=== PATIENT | male | born 1965 | race Caucasian/White ===

== ENCOUNTER 2017-01-09 00:50 | Emergency (ER) | payer MEDICARE, MEDICAID ==
[~2017-01-09] VITALS: Ht 172.7 cm; Wt 93.0 kg
[~2017-01-09 00:50] MED LIST: ALBU6.7H INH; AMLO5TAB2; ASPI-621 PO; DOCU-30 PO; FAMO-79 PO; HYDR-3240 PO; LEVO25TA2 PO; LEVO500T33 PO; LISI-167 PO; LISI-170 PO; LISI1TAB5 PO; LISI40TA PO; METF500T27 PO; METF500T4 PO; MORP15TA17 PO; NEBI5TAB2 PO; OMEP40CA3 PO; OXYC5CAP4 PO; OXYC5TAB3 PO; POLY119P4 PO; POLY17PO5 PO; TIOT18CA INH; TOPI100T24 PO
[2017-01-09] MEDS ORDERED: ASPIRIN 81 MG TABLET CHEW PO ONE (01:30)
[2017-01-09] MEDS ORDERED: SODIUM CHLORIDE 0.9% 1,000ML IVBOLUS ONE (01:30)
[2017-01-09 01:45] LABS: HEMOGLOBIN 15.1 g/dL (13.7-18.0)
[2017-01-09 01:57] LABS: BLOOD UREA NITROGEN 18 mg/dL (7-18)
[2017-01-09 02:01] LABS: IS PT STATUS REG ER OR PRE ER? YES
[2017-01-09 03:05] VITALS: BP 136/85
== END 2017-01-09 03:08 | disposition home or self-care (01) ==
LOC: ED 02:41
DX: R07.89 Other chest pain (principal); Z86.711 Personal history of pulmonary embolism; E11.9 Type 2 diabetes mellitus without complications; I10 Essential (primary) hypertension; K21.9 Gastro-esophageal reflux disease without esophagitis; J44.9 Chronic obstructive pulmonary disease, unspecified
CPT/HCPCS: 36415; 71010; 80048; 82040; 84484; 85025; 93005; 96360; 99285; J7030

== ENCOUNTER 2017-01-18 07:38 | Emergency (ER) | payer MEDICARE, MEDICAID ==
[~2017-01-18] VITALS: Ht 172.7 cm; Wt 89.0 kg
[2017-01-18] MEDS ORDERED: SODIUM CHLORIDE 0.9% 1,000 ML IV ONE (07:54)
[2017-01-18] MEDS ORDERED: SODIUM CHLORIDE 0.9% 1,000ML IVBOLUS ONE (08:00)
[2017-01-18] MEDS ORDERED: ALBUTEROL/IPRATROPIUM 2.5MG/0.5MG, 3 ML NPPB ONE (08:00)
[2017-01-18 08:25] LABS: HEMOGLOBIN 15.9 g/dL (13.7-18.0)
[2017-01-18] MEDS ORDERED: ALBUTEROL/IPRATROPIUM 2.5MG/0.5MG, 3 ML ONE (08:27)
[2017-01-18 08:38] LABS: BLOOD UREA NITROGEN 17 mg/dL (7-18)
[2017-01-18 08:42] LABS: IS PT STATUS REG ER OR PRE ER? YES
[2017-01-18] MEDS ORDERED: KETOROLAC 30 MG/1 ML ONE (09:43)
[2017-01-18 09:54] VITALS: BP 153/89
[2017-01-18] MEDS ORDERED: KETOROLAC 30 MG/1 ML IVPush ONE (10:00)
== END 2017-01-18 10:04 | disposition home or self-care (01) ==
LOC: ED 08:59
DX: J44.1 Chronic obstructive pulmonary disease with (acute) exacerbation (principal); J41.1 Mucopurulent chronic bronchitis; I10 Essential (primary) hypertension; E11.9 Type 2 diabetes mellitus without complications
CPT/HCPCS: 36415; 71010; 80048; 82040; 83605; 83880; 84145; 84484; 85025; 93005; 94640; 96374; 99285; J1885; J7030; J7512; J7620

== ENCOUNTER 2017-01-24 08:34 | Emergency (ER) | payer MEDICARE, MEDICAID ==
[~2017-01-24] VITALS: Ht 172.7 cm; Wt 94.2 kg
[2017-01-24 08:36] VITALS: BP 147/91
== END 2017-01-24 10:25 | disposition home or self-care (01) ==
LOC: ED 09:26
DX: S62.514A Nondisplaced fracture of proximal phalanx of right thumb, initial encounter for closed fracture (principal); S63.641A Sprain of metacarpophalangeal joint of right thumb, initial encounter; J44.9 Chronic obstructive pulmonary disease, unspecified; G43.909 Migraine, unspecified, not intractable, without status migrainosus; K21.9 Gastro-esophageal reflux disease without esophagitis; I10 Essential (primary) hypertension; E11.9 Type 2 diabetes mellitus without complications; W06.XXXA Fall from bed, initial encounter; Y93.89 Activity, other specified; Y92.89 Other specified places as the place of occurrence of the external cause; Y99.8 Other external cause status
CPT/HCPCS: 29125

== ENCOUNTER 2017-01-26 00:32 | Emergency (ER) | payer MEDICARE, MEDICAID ==
[~2017-01-26] VITALS: Ht 172.7 cm; Wt 94.5 kg
[2017-01-26 00:34] VITALS: BP 151/84
[2017-01-26] MEDS ORDERED: IBUPROFEN 200 MG TABLET PO ONE (01:30)
== END 2017-01-26 02:04 | disposition home or self-care (01) ==
LOC: ED 01:45
DX: S62.512D Displaced fracture of proximal phalanx of left thumb, subsequent encounter for fracture with routine healing (principal); X58.XXXD Exposure to other specified factors, subsequent encounter; E11.9 Type 2 diabetes mellitus without complications; K21.9 Gastro-esophageal reflux disease without esophagitis; G43.909 Migraine, unspecified, not intractable, without status migrainosus; J44.9 Chronic obstructive pulmonary disease, unspecified; I11.9 Hypertensive heart disease without heart failure; M54.9 Dorsalgia, unspecified; G89.29 Other chronic pain; Z87.891 Personal history of nicotine dependence
CPT/HCPCS: 99281

== ENCOUNTER 2017-01-31 07:36 | Emergency (ER) | payer MEDICARE, MEDICAID ==
[~2017-01-31] VITALS: Ht 172.7 cm; Wt 93.4 kg
[2017-01-31 07:38] VITALS: BP 150/92
== END 2017-01-31 08:49 | disposition home or self-care (01) ==
LOC: ED 08:07
DX: Z46.89 Encounter for fitting and adjustment of other specified devices (principal); E11.9 Type 2 diabetes mellitus without complications; I10 Essential (primary) hypertension; K21.9 Gastro-esophageal reflux disease without esophagitis; J44.9 Chronic obstructive pulmonary disease, unspecified; G43.909 Migraine, unspecified, not intractable, without status migrainosus; G89.29 Other chronic pain; F41.0 Panic disorder [episodic paroxysmal anxiety]; Z87.891 Personal history of nicotine dependence
CPT/HCPCS: 29125

== ENCOUNTER 2017-02-12 21:33 | Emergency (ER) | payer MEDICARE, MEDICAID ==
[~2017-02-12] VITALS: Ht 172.7 cm; Wt 93.4 kg
[2017-02-12] MEDS ORDERED: OMNIPAQUE 350 MG/ML, 100ML BOTTLE ONE (23:00)
[2017-02-12] MEDS ORDERED: MORPHINE SULFATE 4 MG/ML, 1ML IVPush PRN (23:00)
[2017-02-12] MEDS ORDERED: ONDANSETRON 2MG/ML, 2ML IVPush ONE (23:00)
[2017-02-12] MEDS ORDERED: MORPHINE SULFATE 4 MG/ML, 1ML ONE (23:13)
[2017-02-12] MEDS ORDERED: ONDANSETRON 2MG/ML, 2ML ONE (23:13)
[2017-02-12 23:31] LABS: ASPARTATE AMINO TRANSFERASE 24 U/L (15-37); BLOOD UREA NITROGEN 20 mg/dL (7-18)
[2017-02-13 01:24] VITALS: BP 131/77
== END 2017-02-13 01:56 | disposition home or self-care (01) ==
LOC: ED 23:51
DX: A09 Infectious gastroenteritis and colitis, unspecified (principal); I10 Essential (primary) hypertension; E11.9 Type 2 diabetes mellitus without complications; K21.9 Gastro-esophageal reflux disease without esophagitis; J44.9 Chronic obstructive pulmonary disease, unspecified; I11.9 Hypertensive heart disease without heart failure; Z87.01 Personal history of pneumonia (recurrent); Z90.49 Acquired absence of other specified parts of digestive tract; Z87.891 Personal history of nicotine dependence
CPT/HCPCS: 36415; 74177; 80053; 83690; 85025; 96374; 96375; 99285; J2405; Q9967

== ENCOUNTER 2017-02-20 06:36 | Emergency (ER) | payer MEDICARE, MEDICAID ==
[~2017-02-20] VITALS: Ht 172.7 cm; Wt 94.0 kg
[2017-02-20] MEDS ORDERED: SODIUM CHLORIDE FLUSH 10ML SYR IVF ONE (07:30)
[2017-02-20] MEDS ORDERED: KETOROLAC 30 MG/1 ML IVPush ONE (07:30)
[2017-02-20] MEDS ORDERED: METF500T4 PO (07:34)
[2017-02-20] MEDS ORDERED: KETOROLAC 30 MG/1 ML ONE (07:44)
[2017-02-20 07:52] LABS: PATH.CAST-FLAG NOT PRESENT; SPERM-FLAG NOT PRESENT; SRC-FLAG NOT PRESENT; XTAL-FLAG NOT PRESENT; YLC-FLAG NOT PRESENT
[2017-02-20 08:01] LABS: ASPARTATE AMINO TRANSFERASE 26 U/L (15-37); BLOOD UREA NITROGEN 16 mg/dL (7-18)
[2017-02-20 08:30] VITALS: BP 122/85
== END 2017-02-20 09:07 | disposition home or self-care (01) ==
LOC: ED 07:55
DX: R31.29 Other microscopic hematuria (principal); R10.32 Left lower quadrant pain; E11.9 Type 2 diabetes mellitus without complications; J44.9 Chronic obstructive pulmonary disease, unspecified; K21.9 Gastro-esophageal reflux disease without esophagitis; I10 Essential (primary) hypertension
CPT/HCPCS: 36415; 74000; 76770; 80053; 81001; 85025; 87086; 96374; 99285; J1885

== ENCOUNTER 2017-02-21 14:29 | Emergency (ER) | payer MEDICARE, MEDICAID ==
[~2017-02-21] VITALS: Ht 172.7 cm; Wt 94.7 kg
[2017-02-21] MEDS ORDERED: PHENAZOPYRIDINE 200 MG TABLET PO ONE (15:30)
[2017-02-21 16:13] VITALS: BP 138/92
== END 2017-02-21 16:28 | disposition home or self-care (01) ==
LOC: ED 16:22
DX: R33.9 Retention of urine, unspecified (principal); R10.9 Unspecified abdominal pain; G89.29 Other chronic pain; I10 Essential (primary) hypertension; E11.9 Type 2 diabetes mellitus without complications; J44.9 Chronic obstructive pulmonary disease, unspecified; Z87.891 Personal history of nicotine dependence
CPT/HCPCS: 81001; 99284

== ENCOUNTER 2017-03-10 09:45 | Emergency (ER) | payer MEDICARE, MEDICAID ==
[~2017-03-10] VITALS: Ht 172.7 cm; Wt 93.2 kg
[2017-03-10] MEDS ORDERED: MAALOX/HYOSCYAMINE/LIDOCAINE 45 ML BOTTLE ONE (10:21)
[2017-03-10] MEDS ORDERED: MAALOX/HYOSCYAMINE/LIDOCAINE 45 ML BOTTLE PO ONE (10:30)
[2017-03-10] MEDS ORDERED: SODIUM CHLORIDE FLUSH 10ML SYR IVF ONE (10:30)
[2017-03-10 10:50] LABS: BLOOD UREA NITROGEN 18 mg/dL (7-18)
[2017-03-10 10:58] LABS: IS PT STATUS REG ER OR PRE ER? YES
[2017-03-10 12:00] VITALS: BP 117/80
== END 2017-03-10 12:07 | disposition home or self-care (01) ==
LOC: ED 10:41
DX: R07.2 Precordial pain (principal); I11.9 Hypertensive heart disease without heart failure; E11.9 Type 2 diabetes mellitus without complications; K21.9 Gastro-esophageal reflux disease without esophagitis; J44.9 Chronic obstructive pulmonary disease, unspecified; I26.99 Other pulmonary embolism without acute cor pulmonale; Z87.891 Personal history of nicotine dependence
CPT/HCPCS: 36415; 71010; 80048; 82040; 84484; 85025; 93005

== ENCOUNTER 2017-03-22 22:44 | Emergency (ER) | payer MEDICARE, MEDICAID ==
[~2017-03-22] VITALS: Ht 172.7 cm; Wt 96.0 kg
[2017-03-22 22:45] VITALS: BP 139/86
[2017-03-22 23:37] LABS: BLOOD UREA NITROGEN 23 mg/dL (7-18)
[2017-03-22 23:40] LABS: PATH.CAST-FLAG NOT PRESENT; SPERM-FLAG NOT PRESENT; SRC-FLAG NOT PRESENT; XTAL-FLAG NOT PRESENT; YLC-FLAG NOT PRESENT
== END 2017-03-22 23:57 | disposition home or self-care (01) ==
LOC: ED 23:42
DX: R30.0 Dysuria (principal); R31.9 Hematuria, unspecified; J44.9 Chronic obstructive pulmonary disease, unspecified; I11.9 Hypertensive heart disease without heart failure; E11.9 Type 2 diabetes mellitus without complications; K21.9 Gastro-esophageal reflux disease without esophagitis; Z87.891 Personal history of nicotine dependence
CPT/HCPCS: 36415; 76770; 80048; 81001; 82040; 85025; 99285

== ENCOUNTER 2017-03-28 13:15 | Emergency (ER) | payer MEDICARE, MEDICAID ==
[~2017-03-28] VITALS: Ht 172.7 cm; Wt 95.4 kg
[2017-03-28 13:21] VITALS: BP 136/95
== END 2017-03-28 14:44 | disposition home or self-care (01) ==
LOC: ED 14:24
DX: S93.491A Sprain of other ligament of right ankle, initial encounter (principal); M25.561 Pain in right knee; G89.11 Acute pain due to trauma; J44.9 Chronic obstructive pulmonary disease, unspecified; Z86.711 Personal history of pulmonary embolism; K21.9 Gastro-esophageal reflux disease without esophagitis; I11.9 Hypertensive heart disease without heart failure; E11.9 Type 2 diabetes mellitus without complications; W01.0XXA Fall on same level from slipping, tripping and stumbling without subsequent striking against object, initial encounter; Y93.89 Activity, other specified; Y92.410 Unspecified street and highway as the place of occurrence of the external cause; Y99.9 Unspecified external cause status
CPT/HCPCS: 29505; 99284

== ENCOUNTER 2017-05-04 18:37 | Emergency (ER) | payer MEDICARE, MEDICAID ==
[~2017-05-04] VITALS: Ht 172.7 cm; Wt 95.0 kg
[2017-05-04] MEDS ORDERED: SODIUM CHLORIDE FLUSH 10ML SYR IVF ONE (19:00)
[2017-05-04] MEDS ORDERED: KETOROLAC 30 MG/1 ML IVPush ONE (19:00)
[2017-05-04] MEDS ORDERED: SODIUM CHLORIDE 0.9% 1,000ML IV ONE (19:00)
[2017-05-04] MEDS ORDERED: ONDANSETRON 2MG/ML, 2ML IVPush ONE (19:00)
[2017-05-04 19:29] LABS: ASPARTATE AMINO TRANSFERASE 31 U/L (15-37); BLOOD UREA NITROGEN 24 mg/dL (7-18)
[2017-05-04] MEDS ORDERED: METF500T4 PO (19:32)
[2017-05-04] MEDS ORDERED: ONDANSETRON 2MG/ML, 2ML ONE (19:32)
[2017-05-04] MEDS ORDERED: KETOROLAC 30 MG/1 ML ONE (19:32)
[2017-05-04 21:21] VITALS: BP 127/75
== END 2017-05-04 21:24 | disposition home or self-care (01) ==
LOC: ED 20:45
DX: R30.0 Dysuria (principal); R31.9 Hematuria, unspecified; J44.9 Chronic obstructive pulmonary disease, unspecified; K21.9 Gastro-esophageal reflux disease without esophagitis; I11.9 Hypertensive heart disease without heart failure; Z86.711 Personal history of pulmonary embolism; E11.9 Type 2 diabetes mellitus without complications; Z87.891 Personal history of nicotine dependence
CPT/HCPCS: 36415; 74000; 80053; 81003; 83690; 85025; 96374; 96375; 99285; J1885; J2405; J7030

== ENCOUNTER 2017-05-09 11:31 | Emergency (ER) | payer MEDICARE, MEDICAID ==
[~2017-05-09] VITALS: Ht 172.7 cm; Wt 96.3 kg
[2017-05-09] MEDS ORDERED: SODIUM CHLORIDE FLUSH 10ML SYR IVF ONE (12:00)
[2017-05-09] MEDS ORDERED: KETOROLAC 30 MG/1 ML IVPush ONE (12:00)
[2017-05-09] MEDS ORDERED: ONDANSETRON 2MG/ML, 2ML IVPush ONE (12:00)
[2017-05-09] MEDS ORDERED: KETOROLAC 30 MG/1 ML ONE (12:11)
[2017-05-09] MEDS ORDERED: ONDANSETRON 2MG/ML, 2ML ONE (12:11)
[2017-05-09 12:28] LABS: BLOOD UREA NITROGEN 17 mg/dL (7-18)
[2017-05-09 13:19] VITALS: BP 153/90
== END 2017-05-09 14:17 | disposition home or self-care (01) ==
LOC: ED 11:47
DX: R10.9 Unspecified abdominal pain (principal); R30.0 Dysuria; J44.9 Chronic obstructive pulmonary disease, unspecified; I10 Essential (primary) hypertension; E11.9 Type 2 diabetes mellitus without complications; F17.210 Nicotine dependence, cigarettes, uncomplicated
CPT/HCPCS: 36415; 80048; 81001; 82040; 85025; 96374; 96375; 99284; J1885; J2405

== ENCOUNTER 2017-05-16 21:31 | Observation (INO) | payer MEDICARE, MEDICAID ==
[~2017-05-16] VITALS: Ht 172.7 cm; Wt 95.4 kg
[2017-05-16 22:24] LABS: BLOOD UREA NITROGEN 16 mg/dL (7-18)
[2017-05-17 00:18] LABS: DAU SCREEN DISCLAIMER
[2017-05-17] MEDS ORDERED: POLYETHYLENE GLYCOL 17 GM PACKET PO PRN (01:00)
[2017-05-17] MEDS ORDERED: DOCUSATE 100 MG CAPSULE PO PRN (01:00)
[2017-05-17] MEDS ORDERED: TEMPLATE NON-FORMULARY MED. (Albuterol Sulfate (Proventil Hfa) 2 PUFF(S)) INH PRN (01:00)
[2017-05-17] MEDS ORDERED: LABETALOL 5MG/ML 40ML VIAL IVPush PRN (01:00)
[2017-05-17] MEDS: HEPARIN 5,000 UNITS/ML, 1ML SQ SCH ×3 (02:49→22:15)
[2017-05-17] MEDS: SODIUM CHLORIDE 0.9% 1,000 ML IV SCH ×3 (02:49→22:16)
[2017-05-17 02:55] VITALS: BP 118/77
[2017-05-17] MEDS ORDERED: ALUMINUM/MAG/SIMETHICONE 30 ML UDC PO PRN (05:30)
[2017-05-17 06:30] VITALS: BP 123/83
[2017-05-17] MEDS: IPRATROPIUM 0.5 MG/2.5 ML INHA HHN SCH ×3 (09:00→21:00)
[2017-05-17] MEDS: OMEPRAZOLE 20 MG CAPSULE.DR PO SCH ×2 (10:13→22:15)
[2017-05-17 12:03] VITALS: BP 126/82
[2017-05-17] MEDS: KETOROLAC 30 MG/1 ML IVPush PRN (18:16)
[2017-05-17 18:27] VITALS: BP 127/82
[2017-05-18 02:42] VITALS: BP 128/85
[2017-05-18] MEDS: IPRATROPIUM 0.5 MG/2.5 ML INHA HHN SCH ×4 (03:00→21:00)
[2017-05-18 05:15] LABS: BLOOD UREA NITROGEN 15 mg/dL (7-18)
[2017-05-18] MEDS: HEPARIN 5,000 UNITS/ML, 1ML SQ SCH ×3 (05:15→22:10)
[2017-05-18 07:00] VITALS: BP 135/88
[2017-05-18] MEDS: SODIUM CHLORIDE 0.9% 1,000 ML IV SCH (08:30)
[2017-05-18] MEDS: OMEPRAZOLE 20 MG CAPSULE.DR PO SCH ×2 (08:36→22:10)
[2017-05-18] MEDS: KETOROLAC 30 MG/1 ML IVPush PRN (08:53)
[2017-05-18] MEDS: INSULIN ASPART 100 UNITS/ML, PEN SQ-INSULIN SCH ×3 (11:00→21:00)
[2017-05-18 12:53] VITALS: BP 132/81
[2017-05-18 20:26] VITALS: BP 129/84
[2017-05-18] MEDS: metFORMIN 500 MG TABLET PO SCH (22:10)
[2017-05-19 02:05] VITALS: BP 125/87
[2017-05-19] MEDS: IPRATROPIUM 0.5 MG/2.5 ML INHA HHN SCH ×4 (03:00→21:00)
[2017-05-19] MEDS: HEPARIN 5,000 UNITS/ML, 1ML SQ SCH ×3 (05:51→21:19)
[2017-05-19] MEDS: INSULIN ASPART 100 UNITS/ML, PEN SQ-INSULIN SCH ×4 (07:00→21:00)
[2017-05-19 08:06] VITALS: BP 128/85
[2017-05-19] MEDS: TOPIRAMATE 100 MG TABLET PO SCH (08:10)
[2017-05-19] MEDS: metFORMIN 500 MG TABLET PO SCH ×2 (08:10→21:15)
[2017-05-19] MEDS: OMEPRAZOLE 20 MG CAPSULE.DR PO SCH ×2 (08:10→21:15)
[2017-05-19 08:55] LABS: IS PT STATUS REG ER OR PRE ER? NO
[2017-05-19 14:30] VITALS: BP 124/84
[2017-05-19 18:38] VITALS: BP 132/88
[2017-05-20 01:50] VITALS: BP 104/65
[2017-05-20] MEDS: IPRATROPIUM 0.5 MG/2.5 ML INHA HHN SCH ×3 (03:00→08:35)
[2017-05-20] MEDS: HEPARIN 5,000 UNITS/ML, 1ML SQ SCH ×3 (06:07→22:00)
[2017-05-20] MEDS: INSULIN ASPART 100 UNITS/ML, PEN SQ-INSULIN SCH ×4 (07:00→20:04)
[2017-05-20] MEDS: metFORMIN 500 MG TABLET PO SCH ×2 (08:29→20:03)
[2017-05-20] MEDS: TOPIRAMATE 100 MG TABLET PO SCH (08:29)
[2017-05-20] MEDS: OMEPRAZOLE 20 MG CAPSULE.DR PO SCH ×2 (08:29→20:03)
[2017-05-20] MEDS: IPRATROPIUM 0.5 MG/2.5 ML INHA NPPB SCH ×2 (15:00→21:00)
[2017-05-20 18:43] VITALS: BP 119/81
[2017-05-21 00:12] VITALS: BP 113/72
[2017-05-21] MEDS: ACETAMINOPHEN 325 MG TABLET PO PRN (01:38)
[2017-05-21] MEDS: IPRATROPIUM 0.5 MG/2.5 ML INHA NPPB SCH ×4 (02:32→15:11)
[2017-05-21] MEDS: HEPARIN 5,000 UNITS/ML, 1ML SQ SCH ×3 (06:00→21:19)
[2017-05-21] MEDS: INSULIN ASPART 100 UNITS/ML, PEN SQ-INSULIN SCH ×4 (07:00→21:00)
[2017-05-21 08:22] VITALS: BP 124/82
[2017-05-21] MEDS: OMEPRAZOLE 20 MG CAPSULE.DR PO SCH ×2 (09:06→21:19)
[2017-05-21] MEDS: TOPIRAMATE 100 MG TABLET PO SCH (09:06)
[2017-05-21] MEDS: metFORMIN 500 MG TABLET PO SCH ×2 (09:06→21:19)
[2017-05-21 14:30] VITALS: BP 107/71
[2017-05-21 19:03] VITALS: BP 129/88
[2017-05-21 19:50] VITALS: BP 126/88
[2017-05-21] MEDS ORDERED: ALUMINUM/MAG/SIMETHICONE 30 ML UDC PO PRN (20:45)
[2017-05-21] MEDS: MORPHINE SULFATE 4 MG/ML, 1ML IVPush PRN (21:18)
[2017-05-22 01:10] VITALS: BP 121/82
[2017-05-22] MEDS: MORPHINE SULFATE 4 MG/ML, 1ML IVPush PRN ×5 (01:42→21:13)
[2017-05-22] MEDS: IPRATROPIUM 0.5 MG/2.5 ML INHA NPPB SCH ×3 (02:47→15:00)
[2017-05-22] MEDS: HEPARIN 5,000 UNITS/ML, 1ML SQ SCH ×2 (05:45→16:48)
[2017-05-22] MEDS ORDERED: ONDANSETRON 2MG/ML, 2ML IVPush PRN (06:00)
[2017-05-22] MEDS: INSULIN ASPART 100 UNITS/ML, PEN SQ-INSULIN SCH ×4 (07:00→21:00)
[2017-05-22] MEDS: metFORMIN 500 MG TABLET PO SCH ×2 (08:20→21:00)
[2017-05-22] MEDS: TOPIRAMATE 100 MG TABLET PO SCH (08:20)
[2017-05-22] MEDS: OMEPRAZOLE 20 MG CAPSULE.DR PO SCH ×2 (08:20→21:13)
[2017-05-22 09:02] VITALS: BP 125/85
[2017-05-22 09:40] LABS: IS PT STATUS REG ER OR PRE ER? NO
[2017-05-22 14:30] VITALS: BP 123/85
[2017-05-22] MEDS: ACETAMINOPHEN 325 MG TABLET PO PRN (16:47)
[2017-05-22 20:08] VITALS: BP 124/85
[2017-05-23] MEDS: HEPARIN 5,000 UNITS/ML, 1ML SQ SCH ×3 (01:00→16:05)
[2017-05-23] MEDS: MORPHINE SULFATE 4 MG/ML, 1ML IVPush PRN ×2 (05:02→15:16)
[2017-05-23 05:05] VITALS: BP 123/85
[2017-05-23] MEDS ORDERED: IPRATROPIUM 0.5 MG/2.5 ML INHA ONE (06:30)
[2017-05-23] MEDS: INSULIN ASPART 100 UNITS/ML, PEN SQ-INSULIN SCH ×3 (07:00→16:13)
[2017-05-23 07:03] VITALS: BP 116/78
[2017-05-23] MEDS: metFORMIN 500 MG TABLET PO SCH (07:31)
[2017-05-23] MEDS: TOPIRAMATE 100 MG TABLET PO SCH (07:45)
[2017-05-23] MEDS: OMEPRAZOLE 20 MG CAPSULE.DR PO SCH (07:45)
[2017-05-23] MEDS ORDERED: REGADENOSON 0.4 MG/5 ML SYRINGE ONE (08:16)
[2017-05-23] MEDS ORDERED: IPRATROPIUM 0.5 MG/2.5 ML INHA NPPB SCH (09:00)
[2017-05-23 12:01] VITALS: BP 127/83
== END 2017-05-23 17:54 ==
LOC: ED 21:48 → EDIP 05-17 00:18 → INTOOBSV 05-17 00:18 → 4WST 05-17 00:44
PROVIDERS: ADMIT Hospitalist; ATTEND Internal Medicine
DX: T46.4X2A Poisoning by angiotensin-converting-enzyme inhibitors, intentional self-harm, initial encounter (principal); E11.9 Type 2 diabetes mellitus without complications; F10.21 Alcohol dependence, in remission; J44.9 Chronic obstructive pulmonary disease, unspecified; G47.33 Obstructive sleep apnea (adult) (pediatric); I10 Essential (primary) hypertension; K21.9 Gastro-esophageal reflux disease without esophagitis; Z86.711 Personal history of pulmonary embolism; Z87.891 Personal history of nicotine dependence; Y92.89 Other specified places as the place of occurrence of the external cause
CPT/HCPCS: 36415; 78452; 80048; 80307; 82040; 82962; 83690; 83735; 84484; 85025; 87324; 93005; 93017; 94640; 96361; 96372; 96374; 96375; 96376; 99285; A9502; C9898; G0378; J1644; J1815; J1885; J2405; J2785; J7030; J7644

== ENCOUNTER 2017-06-04 01:41 | Emergency (ER) | payer MEDICARE, MEDICAID ==
[~2017-06-04] VITALS: Ht 170.2 cm; Wt 95.3 kg
[2017-06-04] MEDS ORDERED: LORazepam 0.5MG TABLET PO ONE (03:30)
[2017-06-04] MEDS ORDERED: LORazepam 0.5MG TABLET ONE (03:31)
[2017-06-04 03:38] LABS: HEMATOCRIT 49.2 % (39.2-51.8); HEMOGLOBIN 15.8 g/dL (13.7-18.0); WHITE BLOOD COUNT 8.5 x10^3/uL (3.4-10)
[2017-06-04 03:48] LABS: BLOOD UREA NITROGEN 22 mg/dL (7-18)
[2017-06-04 03:55] LABS: IS PT STATUS REG ER OR PRE ER? YES
[2017-06-04 04:24] VITALS: BP 130/83
== END 2017-06-04 04:25 | disposition home or self-care (01) ==
LOC: ED 03:25
DX: R07.89 Other chest pain (principal); R06.00 Dyspnea, unspecified; E11.9 Type 2 diabetes mellitus without complications; I10 Essential (primary) hypertension; J44.9 Chronic obstructive pulmonary disease, unspecified; K21.9 Gastro-esophageal reflux disease without esophagitis; G43.909 Migraine, unspecified, not intractable, without status migrainosus; Z79.84 Long term (current) use of oral hypoglycemic drugs; Z87.891 Personal history of nicotine dependence
CPT/HCPCS: 36415; 71020; 80048; 84484; 85025; 93005; 99285

== ENCOUNTER 2017-06-14 19:44 | Emergency (ER) | payer MEDICARE, MEDICAID ==
[~2017-06-14] VITALS: Ht 172.7 cm; Wt 95.7 kg
[2017-06-14] MEDS ORDERED: ASPIRIN 81 MG TABLET CHEW ONE (20:17)
[2017-06-14] MEDS ORDERED: SODIUM CHLORIDE FLUSH 10ML SYR IVF ONE (20:30)
[2017-06-14] MEDS ORDERED: ASPIRIN 81 MG TABLET CHEW PO ONE (20:30)
[2017-06-14 20:41] LABS: HEMATOCRIT 46.8 % (39.2-51.8); HEMOGLOBIN 15.3 g/dL (13.7-18.0); WHITE BLOOD COUNT 7.8 x10^3/uL (3.4-10)
[2017-06-14 20:50] LABS: ASPARTATE AMINO TRANSFERASE 28 U/L (15-37); BLOOD UREA NITROGEN 17 mg/dL (7-18)
[2017-06-14 20:55] LABS: IS PT STATUS REG ER OR PRE ER? YES
[2017-06-14] MEDS ORDERED: OMNIPAQUE 350 MG/ML, 100ML BOTTLE ONE (21:43)
[2017-06-14] MEDS ORDERED: ONDANSETRON 2MG/ML, 2ML IVPush ONE (22:30)
[2017-06-14] MEDS ORDERED: MORPHINE SULFATE 4 MG/ML, 1ML IVPush PRN (22:30)
[2017-06-14] MEDS ORDERED: MORPHINE SULFATE 4 MG/ML, 1ML ONE (22:58)
[2017-06-14] MEDS ORDERED: ONDANSETRON 2MG/ML, 2ML ONE (22:59)
[2017-06-14] MEDS ORDERED: NITROGLYCERIN SINGLE TAB 0.4 MG SL ONE (22:59)
[2017-06-14] MEDS: NITROGLYCERIN SINGLE TAB 0.4 MG SL PRN ×3 (23:01→23:13)
[2017-06-14 23:10] LABS: IS PT STATUS REG ER OR PRE ER? YES
[2017-06-14 23:38] VITALS: BP 121/78
== END 2017-06-14 23:45 | disposition home or self-care (01) ==
LOC: ED 20:19
DX: R10.13 Epigastric pain (principal); R07.89 Other chest pain; J44.9 Chronic obstructive pulmonary disease, unspecified; E11.9 Type 2 diabetes mellitus without complications; I10 Essential (primary) hypertension; K21.9 Gastro-esophageal reflux disease without esophagitis; Z86.711 Personal history of pulmonary embolism; Z87.891 Personal history of nicotine dependence
CPT/HCPCS: 36415; 71010; 71275; 80053; 83690; 84484; 85025; 85379; 93005; 96374; 96375; 99285; J2405; Q9967

== ENCOUNTER 2017-06-20 10:25 | Emergency (ER) | payer MEDICARE, MEDICAID ==
[~2017-06-20] VITALS: Ht 172.7 cm; Wt 95.5 kg
[~2017-06-20 10:25] MED LIST changes: +DOCU-131 PO; -DOCU-30 PO; -LEVO500T33 PO; +LEVO500T47 PO; +OXYC5CAP2 PO; -OXYC5CAP4 PO
[2017-06-20] MEDS ORDERED: SODIUM CHLORIDE 0.9% 1,000ML IV ONE (11:00)
[2017-06-20] MEDS ORDERED: SODIUM CHLORIDE FLUSH 10ML SYR IVF ONE (11:00)
[2017-06-20] MEDS ORDERED: MORPHINE SULFATE 4 MG/ML, 1ML IVPush PRN (11:00)
[2017-06-20] MEDS ORDERED: ONDANSETRON 2MG/ML, 2ML IVPush ONE (11:00)
[2017-06-20] MEDS ORDERED: ONDANSETRON 2MG/ML, 2ML ONE (11:15)
[2017-06-20] MEDS ORDERED: MORPHINE SULFATE 4 MG/ML, 1ML ONE (11:15)
[2017-06-20 11:23] LABS: HEMATOCRIT 47.7 % (39.2-51.8); HEMOGLOBIN 15.7 g/dL (13.7-18.0); WHITE BLOOD COUNT 5.6 x10^3/uL (3.4-10)
[2017-06-20 11:34] LABS: ASPARTATE AMINO TRANSFERASE 30 U/L (15-37); BLOOD UREA NITROGEN 17 mg/dL (7-18)
[2017-06-20] MEDS: MAGNESIUM CITRATE 300ML ORAL SOL PO ONE ×2 (12:00→12:06)
[2017-06-20] MEDS ORDERED: MAGNESIUM CITRATE 300ML ORAL SOL ONE (12:05)
[2017-06-20 12:46] VITALS: BP 141/92
== END 2017-06-20 12:51 | disposition home or self-care (01) ==
LOC: ED 10:39
DX: K59.00 Constipation, unspecified (principal); I10 Essential (primary) hypertension; J44.9 Chronic obstructive pulmonary disease, unspecified; E11.9 Type 2 diabetes mellitus without complications; K21.9 Gastro-esophageal reflux disease without esophagitis; Z90.49 Acquired absence of other specified parts of digestive tract
CPT/HCPCS: 36415; 74176; 80053; 81003; 83605; 83690; 85025; 87040; 96374; 96375; 99285; J2405; J7030

== ENCOUNTER 2017-06-30 13:36 | Inpatient (IN) | payer MEDICARE, MEDICAID ==
[~2017-06-30] VITALS: Ht 172.7 cm; Wt 104.0 kg
[2017-06-30] MEDS ORDERED: SODIUM CHLORIDE 0.9% 1,000 ML IV ONE (15:05)
[2017-06-30] MEDS ORDERED: SODIUM CHLORIDE 0.9% 1,000ML IVBOLUS ONE (15:30)
[2017-06-30] MEDS ORDERED: MORPHINE SULFATE 4 MG/ML, 1ML IVPush PRN (15:30)
[2017-06-30] MEDS ORDERED: FAMOTIDINE 20 MG/2 ML IVP ONE (15:30)
[2017-06-30] MEDS ORDERED: MAALOX/HYOSCYAMINE/LIDOCAINE 45 ML BTL PO ONE (15:30)
[2017-06-30] MEDS ORDERED: ONDANSETRON 2MG/ML, 2ML IVPush ONE (15:30)
[2017-06-30] MEDS ORDERED: MORPHINE SULFATE 4 MG/ML, 1ML ONE (15:31)
[2017-06-30] MEDS ORDERED: MAALOX/HYOSCYAMINE/LIDOCAINE 45 ML BTL ONE (15:31)
[2017-06-30 15:32] LABS: HEMATOCRIT 48.2 % (39.2-51.8); WHITE BLOOD COUNT 8.3 x10^3/uL (3.4-10)
[2017-06-30] MEDS ORDERED: ONDANSETRON 2MG/ML, 2ML ONE (15:32)
[2017-06-30] MEDS ORDERED: FAMOTIDINE 20 MG/2 ML ONE (15:32)
[2017-06-30 15:42] LABS: PATH.CAST-FLAG NOT PRESENT; SPERM-FLAG NOT PRESENT; SRC-FLAG NOT PRESENT; XTAL-FLAG NOT PRESENT; YLC-FLAG NOT PRESENT
[2017-06-30 15:43] LABS: BLOOD UREA NITROGEN 14 mg/dL (7-18)
[2017-06-30 15:47] LABS: ASPARTATE AMINO TRANSFERASE 41 U/L (15-37)
[2017-06-30] MEDS ORDERED: TEMPLATE NON-FORMULARY MED. (Albuterol Sulfate (Proventil Hfa) 2 PUFF(S)) INH PRN (18:30)
[2017-06-30] MEDS ORDERED: morphine SULFATE 10 MG/ML, 1ML IVPush PRN (19:00)
[2017-06-30] MEDS ORDERED: ONDANSETRON 2MG/ML, 2ML IVPush PRN (19:00)
[2017-06-30] MEDS ORDERED: POLYETHYLENE GLYCOL 17 GM PACKET PO PRN (19:00)
[2017-06-30] MEDS ORDERED: DOCUSATE 100 MG CAPSULE PO PRN (19:00)
[2017-06-30] MEDS ORDERED: ACETAMINOPHEN 325 MG TABLET PO PRN (19:00)
[2017-06-30] MEDS ORDERED: ENOXAPARIN 40 MG/0.4 ML ONE (19:20)
[2017-06-30] MEDS: ENOXAPARIN 40 MG/0.4 ML SQ SCH (19:21)
[2017-06-30 20:00] VITALS: BP 138/91
[2017-06-30] MEDS: INSULIN ASPART 100 UNITS/ML, PEN SQ-INSULIN SCH (21:00)
[2017-06-30] MEDS: OXYcodone IR 5MG TABLET PO PRN (21:15)
[2017-06-30] MEDS: NS + 20MEQ KCL 1,000 ML IV SCH (21:15)
[2017-07-01 03:35] VITALS: BP 130/83
[2017-07-01] MEDS: OXYcodone IR 5MG TABLET PO PRN ×3 (03:40→20:17)
[2017-07-01] MEDS: NS + 20MEQ KCL 1,000 ML IV SCH (05:34)
[2017-07-01] MEDS: INSULIN ASPART 100 UNITS/ML, PEN SQ-INSULIN SCH ×4 (07:00→20:51)
[2017-07-01 08:08] VITALS: BP 140/89
[2017-07-01] MEDS: TOPIRAMATE 25 MG TABLET PO SCH (08:39)
[2017-07-01] MEDS: SENNA/DOCUSATE TABLET PO SCH (08:39)
[2017-07-01] MEDS: TEMPLATE NON-FORMULARY MED. (Tiotropium Bromide** (Spiriva**) 18 MCG) INH SCH (08:40)
[2017-07-01 08:45] LABS: BLOOD UREA NITROGEN 14 mg/dL (7-18)
[2017-07-01 08:48] LABS: ASPARTATE AMINO TRANSFERASE 37 U/L (15-37)
[2017-07-01 12:55] VITALS: BP 117/74
[2017-07-01] MEDS: ENOXAPARIN 40 MG/0.4 ML SQ SCH (18:23)
[2017-07-01 19:07] VITALS: BP 95/67
[2017-07-02 01:58] VITALS: BP 99/66
[2017-07-02 05:30] LABS: BLOOD UREA NITROGEN 11 mg/dL (7-18)
[2017-07-02] MEDS: INSULIN ASPART 100 UNITS/ML, PEN SQ-INSULIN SCH ×4 (07:00→21:00)
[2017-07-02] MEDS: SENNA/DOCUSATE TABLET PO SCH (07:44)
[2017-07-02] MEDS: TOPIRAMATE 25 MG TABLET PO SCH (07:44)
[2017-07-02] MEDS: TEMPLATE NON-FORMULARY MED. (Tiotropium Bromide** (Spiriva**) 18 MCG) INH SCH (08:03)
[2017-07-02 08:39] VITALS: BP 103/62
[2017-07-02] MEDS: SODIUM CHLORIDE 0.9% 1,000 ML IV SCH ×2 (12:22→20:49)
[2017-07-02] MEDS ORDERED: SENNA/DOCUSATE TABLET PO PRN (12:30)
[2017-07-02 14:44] VITALS: BP 127/83
[2017-07-02] MEDS: OXYcodone IR 5MG TABLET PO PRN (18:33)
[2017-07-02] MEDS: ENOXAPARIN 40 MG/0.4 ML SQ SCH (18:33)
[2017-07-02 19:19] VITALS: BP 122/79
[2017-07-03 01:55] VITALS: BP 122/79
[2017-07-03] MEDS: SODIUM CHLORIDE 0.9% 1,000 ML IV SCH ×3 (04:26→18:15)
[2017-07-03] MEDS: INSULIN ASPART 100 UNITS/ML, PEN SQ-INSULIN SCH ×4 (06:38→21:27)
[2017-07-03 07:06] VITALS: BP 125/84
[2017-07-03] MEDS: TEMPLATE NON-FORMULARY MED. (Tiotropium Bromide** (Spiriva**) 18 MCG) INH SCH (09:00)
[2017-07-03] MEDS: TOPIRAMATE 25 MG TABLET PO SCH (09:09)
[2017-07-03] MEDS ORDERED: PHENAZOPYRIDINE 100 MG TABLET PO PRN (11:00)
[2017-07-03 13:52] VITALS: BP 112/76
[2017-07-03] MEDS: IPRATROPIUM 0.5 MG/2.5 ML INHA HHN SCH ×2 (13:55→20:56)
[2017-07-03] MEDS: ENOXAPARIN 40 MG/0.4 ML SQ SCH (18:15)
[2017-07-03 20:32] VITALS: BP 116/70
[2017-07-03] MEDS: OXYcodone IR 5MG TABLET PO PRN (20:40)
[2017-07-04 01:17] VITALS: BP 103/67
[2017-07-04] MEDS ORDERED: IPRATROPIUM 0.5 MG/2.5 ML INHA HHN SCH (03:00)
[2017-07-04] MEDS: SODIUM CHLORIDE 0.9% 1,000 ML IV SCH ×2 (03:24→12:30)
[2017-07-04] MEDS: INSULIN ASPART 100 UNITS/ML, PEN SQ-INSULIN SCH (07:43)
[2017-07-04 08:04] VITALS: BP 109/71
[2017-07-04] MEDS ORDERED: IPRATROPIUM 0.5 MG/2.5 ML INHA ONE (10:04)
[2017-07-04] MEDS: TEMPLATE NON-FORMULARY MED. (Tiotropium Bromide** (Spiriva**) 18 MCG) INH SCH (10:41)
[2017-07-04 11:17] LABS: HEMATOCRIT 47.6 % (39.2-51.8); HEMOGLOBIN 15.9 g/dL (13.7-18.0); WHITE BLOOD COUNT 5.5 x10^3/uL (3.4-10)
[2017-07-04 11:18] LABS: ASPARTATE AMINO TRANSFERASE 38 U/L (15-37); BLOOD UREA NITROGEN 8 mg/dL (7-18)
[2017-07-04] MEDS: TOPIRAMATE 25 MG TABLET PO SCH (12:07)
[2017-07-04] MEDS ORDERED: PHEN-582 PO (15:02)
[2017-07-04 16:00] VITALS: BP 115/81
[2017-07-04] MEDS ORDERED: IPRATROPIUM 0.5 MG/2.5 ML INHA NPPB SCH (21:00)
== END 2017-07-04 17:59 | disposition home or self-care (01) | DRG 439 ==
LOC: ED 14:19 → EDIP 18:07 → 4NOR 19:44
PROVIDERS: ADMIT Family Medicine; ATTEND Family Medicine
DX: K85.20 Alcohol induced acute pancreatitis without necrosis or infection (principal); E44.0 Moderate protein-calorie malnutrition; K74.60 Unspecified cirrhosis of liver; I10 Essential (primary) hypertension; K70.9 Alcoholic liver disease, unspecified; K86.0 Alcohol-induced chronic pancreatitis; E11.9 Type 2 diabetes mellitus without complications; F10.21 Alcohol dependence, in remission; F41.1 Generalized anxiety disorder; G47.33 Obstructive sleep apnea (adult) (pediatric); G89.4 Chronic pain syndrome; M54.9 Dorsalgia, unspecified; J44.9 Chronic obstructive pulmonary disease, unspecified; K21.9 Gastro-esophageal reflux disease without esophagitis; G43.909 Migraine, unspecified, not intractable, without status migrainosus; M54.12 Radiculopathy, cervical region; Z86.711 Personal history of pulmonary embolism; Z90.49 Acquired absence of other specified parts of digestive tract; Z79.84 Long term (current) use of oral hypoglycemic drugs; Z79.899 Other long term (current) drug therapy; Z88.8 Allergy status to other drugs, medicaments and biological substances; Z91.030 Bee allergy status
CPT/HCPCS: 36415; 71010; 76700; 80048; 80053; 81001; 81003; 82962; 83605; 83690; 85025; 85610; 87491; 87591; 93005; 94640; 96361; 96374; 96375; J1650; J2405; J3480; J7644; J7030; S0028

== ENCOUNTER 2017-07-22 13:36 | Inpatient (IN) | payer MEDICARE, MEDICAID ==
[~2017-07-22] VITALS: Ht 172.7 cm; Wt 96.5 kg
[~2017-07-22 13:36] MED LIST changes: +PHEN-582 PO
[2017-07-22] MEDS ORDERED: SODIUM CHLORIDE 0.9% 1,000ML IVBOLUS ONE (14:00)
[2017-07-22] MEDS ORDERED: SODIUM CHLORIDE FLUSH 10ML SYR IVF ONE ×2 (14:00→18:30)
[2017-07-22] MEDS ORDERED: ONDANSETRON 2MG/ML, 2ML IVPush ONE (14:00)
[2017-07-22 14:42] LABS: HEMATOCRIT 48.9 % (39.2-51.8); HEMOGLOBIN 16.3 g/dL (13.7-18.0); WHITE BLOOD COUNT 7.3 x10^3/uL (3.4-10)
[2017-07-22 14:45] LABS: BLOOD UREA NITROGEN 20 mg/dL (7-18)
[2017-07-22 14:50] LABS: ASPARTATE AMINO TRANSFERASE 40 U/L (15-37)
[2017-07-22] MEDS ORDERED: ENALAPRILAT 1.25 MG/ML, 2ML IVPush PRN (18:00)
[2017-07-22] MEDS ORDERED: LABETALOL 5MG/ML, 20ML IVPush PRN (18:00)
[2017-07-22] MEDS ORDERED: ONDANSETRON 2MG/ML, 2ML ONE (18:16)
[2017-07-22] MEDS ORDERED: HYDROmorphone 2 MG/ML, 1ML ONE (18:17)
[2017-07-22] MEDS: HYDROmorphone 2 MG/ML, 1ML IVPush PRN ×2 (18:23→23:22)
[2017-07-22] MEDS ORDERED: DEXTROSE 4 GM TAB.CHEW PO PRN (18:30)
[2017-07-22] MEDS ORDERED: GLUCAGON 1 MG IM PRN (18:30)
[2017-07-22] MEDS ORDERED: hydrALAzine 20 MG/ML, 1ML IV PRN (18:30)
[2017-07-22] MEDS ORDERED: DEXTROSE 50%, 50ML SYRINGE IVPush PRN (18:30)
[2017-07-22] MEDS ORDERED: ONDANSETRON 2MG/ML, 2ML IVPush PRN (18:30)
[2017-07-22] MEDS ORDERED: ALBUTEROL SULFATE 2.5 MG/3 ML NPPB PRN (18:30)
[2017-07-22 19:59] VITALS: BP 142/92
[2017-07-22 20:00] VITALS: BP 142/92
[2017-07-22] MEDS: LACTATED RINGERS 1,000 ML IV SCH (20:03)
[2017-07-22] MEDS: SODIUM CHLORIDE FLUSH 10ML SYR IVF SCH (20:03)
[2017-07-22] MEDS: INSULIN ASPART 100 UNITS/ML, PEN SQ-INSULIN SCH (21:00)
[2017-07-22] MEDS: ENOXAPARIN 40 MG/0.4 ML SQ SCH (21:14)
[2017-07-23] VITALS (7 sets, daily range): BP systolic 101–136; BP diastolic 65–91
[2017-07-23] MEDS: LACTATED RINGERS 1,000 ML IV SCH ×3 (00:53→11:07)
[2017-07-23 05:37] LABS: HEMATOCRIT 46.1 % (39.2-51.8); HEMOGLOBIN 15.3 g/dL (13.7-18.0); WHITE BLOOD COUNT 5.9 x10^3/uL (3.4-10)
[2017-07-23] MEDS: HYDROmorphone 2 MG/ML, 1ML IVPush PRN ×2 (05:54→11:06)
[2017-07-23 05:55] LABS: ASPARTATE AMINO TRANSFERASE 31 U/L (15-37); BLOOD UREA NITROGEN 16 mg/dL (7-18)
[2017-07-23] MEDS: INSULIN ASPART 100 UNITS/ML, PEN SQ-INSULIN SCH ×4 (07:33→21:00)
[2017-07-23] MEDS: SODIUM CHLORIDE FLUSH 10ML SYR IVF SCH ×2 (11:09→21:14)
[2017-07-23] MEDS: IPRATROPIUM 0.5 MG/2.5 ML INHA NPPB SCH ×3 (12:45→22:20)
[2017-07-23] MEDS ORDERED: KETOROLAC 30 MG/1 ML IM PRN (13:30)
[2017-07-23] MEDS: morphine SULFATE 10 MG/ML, 1ML IVPush PRN ×3 (15:57→22:44)
[2017-07-23] MEDS: SODIUM CHLORIDE 0.9% 1,000 ML IV SCH ×2 (15:57→22:47)
[2017-07-23] MEDS ORDERED: NITROGLYCERIN 0.4 MG BOTTLE (25 TABS) SL PRN (18:30)
[2017-07-23 18:55] LABS: IS PT STATUS REG ER OR PRE ER? NO
[2017-07-23] MEDS: ENOXAPARIN 40 MG/0.4 ML SQ SCH (21:15)
[2017-07-24 00:57] LABS: IS PT STATUS REG ER OR PRE ER? NO
[2017-07-24] MEDS: IPRATROPIUM 0.5 MG/2.5 ML INHA NPPB SCH ×4 (02:19→21:02)
[2017-07-24 04:42] VITALS: BP 117/76
[2017-07-24] MEDS: SODIUM CHLORIDE 0.9% 1,000 ML IV SCH ×3 (05:34→20:58)
[2017-07-24] MEDS: morphine SULFATE 10 MG/ML, 1ML IVPush PRN ×2 (05:41→23:51)
[2017-07-24 06:33] LABS: BLOOD UREA NITROGEN 13 mg/dL (7-18)
[2017-07-24 06:37] LABS: IS PT STATUS REG ER OR PRE ER? NO
[2017-07-24 06:52] VITALS: BP 112/63
[2017-07-24] MEDS: INSULIN ASPART 100 UNITS/ML, PEN SQ-INSULIN SCH ×4 (07:00→20:27)
[2017-07-24] MEDS: SODIUM CHLORIDE FLUSH 10ML SYR IVF SCH ×2 (09:00→20:58)
[2017-07-24 13:54] VITALS: BP 117/79
[2017-07-24 20:56] VITALS: BP 125/85
[2017-07-24] MEDS: ENOXAPARIN 40 MG/0.4 ML SQ SCH (20:58)
[2017-07-25 02:08] VITALS: BP 121/79
[2017-07-25] MEDS: IPRATROPIUM 0.5 MG/2.5 ML INHA NPPB SCH ×4 (03:00→19:30)
[2017-07-25] MEDS: SODIUM CHLORIDE 0.9% 1,000 ML IV SCH ×2 (04:51→13:37)
[2017-07-25 05:19] LABS: HEMATOCRIT 44.7 % (39.2-51.8); HEMOGLOBIN 14.9 g/dL (13.7-18.0); WHITE BLOOD COUNT 5.1 x10^3/uL (3.4-10)
[2017-07-25 05:30] LABS: BLOOD UREA NITROGEN 9 mg/dL (7-18)
[2017-07-25] MEDS: INSULIN ASPART 100 UNITS/ML, PEN SQ-INSULIN SCH ×4 (08:34→21:00)
[2017-07-25] MEDS: SODIUM CHLORIDE FLUSH 10ML SYR IVF SCH ×2 (08:40→21:00)
[2017-07-25 08:56] VITALS: BP 143/93
[2017-07-25] MEDS ORDERED: KETOROLAC 30 MG/1 ML IV PRN (13:30)
[2017-07-25 14:46] LABS: PATH.CAST-FLAG NOT PRESENT; SPERM-FLAG NOT PRESENT; SRC-FLAG NOT PRESENT; XTAL-FLAG NOT PRESENT; YLC-FLAG NOT PRESENT
[2017-07-25 15:31] VITALS: BP 125/76
[2017-07-25 20:38] VITALS: BP 128/89
[2017-07-25] MEDS: ENOXAPARIN 40 MG/0.4 ML SQ SCH (21:59)
[2017-07-25] MEDS: morphine SULFATE 10 MG/ML, 1ML IVPush PRN (23:40)
[2017-07-26] MEDS: SODIUM CHLORIDE 0.9% 1,000 ML IV SCH ×2 (01:38→08:58)
[2017-07-26 02:27] VITALS: BP 124/82
[2017-07-26] MEDS: IPRATROPIUM 0.5 MG/2.5 ML INHA NPPB SCH ×2 (03:00→06:42)
[2017-07-26] MEDS: INSULIN ASPART 100 UNITS/ML, PEN SQ-INSULIN SCH ×2 (07:00→11:00)
[2017-07-26 07:17] VITALS: BP 115/78
[2017-07-26] MEDS: SODIUM CHLORIDE FLUSH 10ML SYR IVF SCH (08:32)
[2017-07-26 08:36] LABS: ASPARTATE AMINO TRANSFERASE 41 U/L (15-37); BLOOD UREA NITROGEN 5 mg/dL (7-18)
[2017-07-26] MEDS ORDERED: TAMS-11 PO (11:31)
[2017-07-26 13:20] VITALS: BP 118/72
== END 2017-07-26 14:40 | disposition home or self-care (01) | DRG 440 ==
LOC: ED 17:02 → EDIP 17:03 → ED 18:07 → 3NE 19:30 → DCLOUNGE 07-26 13:40
PROVIDERS: ADMIT Internal Medicine; ATTEND Internal Medicine
DX: K85.90 Acute pancreatitis without necrosis or infection, unspecified (principal); Z99.81 Dependence on supplemental oxygen; K74.60 Unspecified cirrhosis of liver; I10 Essential (primary) hypertension; K70.9 Alcoholic liver disease, unspecified; G47.33 Obstructive sleep apnea (adult) (pediatric); K21.9 Gastro-esophageal reflux disease without esophagitis; E11.9 Type 2 diabetes mellitus without complications; J44.9 Chronic obstructive pulmonary disease, unspecified; K86.1 Other chronic pancreatitis; R33.9 Retention of urine, unspecified; Z83.3 Family history of diabetes mellitus; Z86.711 Personal history of pulmonary embolism; Z87.891 Personal history of nicotine dependence; R31.9 Hematuria, unspecified
CPT/HCPCS: 36415; 74177; 80048; 80053; 80061; 81001; 81003; 82962; 83690; 83735; 84100; 84484; 85025; 85610; 93005; 94640; J1170; J1650; J1885; J2405; J7644; J2270; J7030; J7120

== ENCOUNTER 2017-08-03 00:13 | Emergency (ER) | payer MEDICARE, MEDICAID ==
[~2017-08-03] VITALS: Ht 172.7 cm; Wt 90.0 kg
[~2017-08-03 00:13] MED LIST changes: +TAMS-11 PO
[2017-08-03] MEDS ORDERED: HYDR-3240 PO (00:22)
[2017-08-03] MEDS ORDERED: IBUPROFEN 200 MG TABLET ONE (00:46)
[2017-08-03] MEDS ORDERED: ONDANSETRON ODT 4 MG ONE (00:46)
[2017-08-03] MEDS ORDERED: ONDANSETRON ODT 4 MG PO ONE (01:00)
[2017-08-03] MEDS ORDERED: IBUPROFEN 200 MG TABLET PO ONE (01:00)
[2017-08-03 01:12] LABS: HEMATOCRIT 46.5 % (39.2-51.8); HEMOGLOBIN 15.6 g/dL (13.7-18.0); WHITE BLOOD COUNT 6.9 x10^3/uL (3.4-10)
[2017-08-03 01:24] LABS: ASPARTATE AMINO TRANSFERASE 39 U/L (15-37); BLOOD UREA NITROGEN 18 mg/dL (7-18)
[2017-08-03 02:52] VITALS: BP 134/92
== END 2017-08-03 02:54 | disposition home or self-care (01) ==
LOC: ED 00:35
DX: R10.31 Right lower quadrant pain (principal); R30.0 Dysuria; J44.9 Chronic obstructive pulmonary disease, unspecified; K21.9 Gastro-esophageal reflux disease without esophagitis; I10 Essential (primary) hypertension; E11.9 Type 2 diabetes mellitus without complications; Z86.711 Personal history of pulmonary embolism; Z87.891 Personal history of nicotine dependence
CPT/HCPCS: 36415; 74020; 80053; 81003; 83690; 85025; 99285; Q0162

== ENCOUNTER 2017-08-14 19:08 | Observation (INO) | payer MEDICARE, MEDICAID ==
[~2017-08-14] VITALS: Ht 172.7 cm; Wt 93.0 kg
[2017-08-14 20:02] LABS: HEMATOCRIT 45.1 % (39.2-51.8); WHITE BLOOD COUNT 6.7 x10^3/uL (3.4-10)
[2017-08-14 20:11] LABS: ASPARTATE AMINO TRANSFERASE 26 U/L (15-37); BLOOD UREA NITROGEN 16 mg/dL (7-18)
[2017-08-14 20:14] LABS: ACETAMINOPHEN 6 mcg/mL (10-30)
[2017-08-14 20:18] LABS: DAU SCREEN DISCLAIMER
[2017-08-15] MEDS ORDERED: ONDANSETRON ODT 4 MG PO PRN (01:30)
[2017-08-15] MEDS ORDERED: HYDROcodone/APAP 5/325 TABLET PO PRN (01:30)
[2017-08-15 02:54] VITALS: BP 123/81
[2017-08-15] MEDS ORDERED: ALBUTEROL SULFATE 2.5 MG/3 ML NPPB PRN (03:00)
[2017-08-15] MEDS: INSULIN REGULAR 100 UNITS/ML, 3ML VIAL SQ-INSULIN SCH ×3 (07:00→16:00)
[2017-08-15 07:56] VITALS: BP 132/74
[2017-08-15] MEDS ORDERED: metFORMIN 500 MG TABLET PO SCH (09:00)
[2017-08-15] MEDS ORDERED: LISINOPRIL 10 MG TABLET PO SCH (09:00)
[2017-08-15] MEDS ORDERED: OMEPRAZOLE 20 MG CAPSULE.DR PO SCH (09:00)
[2017-08-15] MEDS ORDERED: TOPIRAMATE 100 MG TABLET PO SCH (09:00)
[2017-08-15 12:36] VITALS: BP 120/81
== END 2017-08-15 16:49 | disposition home or self-care (01) ==
LOC: ED 19:28 → EDIP 08-15 01:25 → INTOOBSV 08-15 01:25 → 3E 08-15 02:37 → UNDODISIN 08-15 16:49
PROVIDERS: ADMIT Internal Medicine; ATTEND Internal Medicine
DX: T40.2X2A Poisoning by other opioids, intentional self-harm, initial encounter (principal); E11.9 Type 2 diabetes mellitus without complications; J44.9 Chronic obstructive pulmonary disease, unspecified; K21.9 Gastro-esophageal reflux disease without esophagitis; F17.200 Nicotine dependence, unspecified, uncomplicated; F10.21 Alcohol dependence, in remission; Y99.8 Other external cause status; Y93.89 Activity, other specified; Y92.89 Other specified places as the place of occurrence of the external cause; Z83.3 Family history of diabetes mellitus
CPT/HCPCS: 36415; 80053; 80307; 80329; 82962; 85025; 99285; G0378; G0479; G0480

== ENCOUNTER 2017-09-09 16:45 | Emergency (ER) | payer MEDICARE, MEDICAID ==
[~2017-09-09] VITALS: Ht 172.7 cm; Wt 91.4 kg
[~2017-09-09 16:45] MED LIST changes: +ACET500T71 PO; +OMEP-110 PO; +OXYC1TAB8 PO
[2017-09-09 16:47] VITALS: BP 151/95
[2017-09-09 17:25] LABS: HEMATOCRIT 45.7 % (39.2-51.8); HEMOGLOBIN 15.4 g/dL (13.7-18.0); WHITE BLOOD COUNT 8.7 x10^3/uL (3.4-10)
[2017-09-09 17:41] LABS: BLOOD UREA NITROGEN 11 mg/dL (7-18)
[2017-09-09 17:46] LABS: ASPARTATE AMINO TRANSFERASE 29 U/L (15-37)
[2017-09-09] MEDS ORDERED: PROMETHAZINE 25 MG/ML, 1ML ONE (18:08)
[2017-09-09] MEDS ORDERED: PROMETHAZINE 25 MG/ML, 1ML IM ONE (18:30)
== END 2017-09-09 18:12 | disposition home or self-care (01) ==
LOC: ED 17:06
DX: J20.9 Acute bronchitis, unspecified (principal); R10.13 Epigastric pain; R10.11 Right upper quadrant pain; J44.9 Chronic obstructive pulmonary disease, unspecified; K21.9 Gastro-esophageal reflux disease without esophagitis; I11.9 Hypertensive heart disease without heart failure; Z86.711 Personal history of pulmonary embolism
CPT/HCPCS: 36415; 71020; 80053; 83690; 85025; 99285

== ENCOUNTER 2017-10-01 19:31 | Emergency (ER) | payer MEDICARE, MEDICAID ==
[~2017-10-01] VITALS: Ht 172.7 cm; Wt 91.5 kg
[~2017-10-01 19:31] MED LIST changes: +LISI2.5T PO
[2017-10-01 20:04] LABS: HEMATOCRIT 48.6 % (39.2-51.8); HEMOGLOBIN 16.2 g/dL (13.7-18.0); WHITE BLOOD COUNT 9.1 x10^3/uL (3.4-10)
[2017-10-01 20:12] LABS: BLOOD UREA NITROGEN 23 mg/dL (7-18)
[2017-10-01] MEDS ORDERED: KETOROLAC 30 MG/1 ML IM ONE (20:30)
[2017-10-01] MEDS ORDERED: KETOROLAC 30 MG/1 ML ONE (20:52)
[2017-10-01] MEDS ORDERED: DICYCLOMINE 10 MG/ML, 2ML ONE (22:29)
[2017-10-01] MEDS ORDERED: DICYCLOMINE 10 MG/ML, 2ML IM ONE (22:30)
[2017-10-01 23:24] VITALS: BP 138/72
== END 2017-10-02 00:13 | disposition home or self-care (01) ==
LOC: ED 20:25
DX: R10.32 Left lower quadrant pain (principal); R10.12 Left upper quadrant pain; R11.0 Nausea; K21.9 Gastro-esophageal reflux disease without esophagitis; J44.9 Chronic obstructive pulmonary disease, unspecified; E11.9 Type 2 diabetes mellitus without complications; I11.9 Hypertensive heart disease without heart failure; Z90.49 Acquired absence of other specified parts of digestive tract
CPT/HCPCS: 36415; 76770; 80048; 81003; 82040; 85025; 96372; 99285; J0500; J1885

== ENCOUNTER 2017-10-06 01:46 | Emergency (ER) | payer MEDICARE, MEDICAID ==
[~2017-10-06] VITALS: Ht 172.7 cm; Wt 93.0 kg
[2017-10-06 01:47] VITALS: BP 158/93
[2017-10-06 02:51] LABS: HEMATOCRIT 44.4 % (39.2-51.8); HEMOGLOBIN 14.8 g/dL (13.7-18.0); WHITE BLOOD COUNT 7.1 x10^3/uL (3.4-10)
[2017-10-06 02:57] LABS: ASPARTATE AMINO TRANSFERASE 25 U/L (15-37); BLOOD UREA NITROGEN 14 mg/dL (7-18)
== END 2017-10-06 03:57 | disposition home or self-care (01) ==
LOC: ED 02:17
DX: K29.00 Acute gastritis without bleeding (principal); J44.9 Chronic obstructive pulmonary disease, unspecified; E11.9 Type 2 diabetes mellitus without complications; I11.9 Hypertensive heart disease without heart failure; Z86.711 Personal history of pulmonary embolism; Z90.49 Acquired absence of other specified parts of digestive tract; Z87.891 Personal history of nicotine dependence
CPT/HCPCS: 36415; 80053; 81003; 83690; 85025; 99284

== ENCOUNTER 2017-10-09 22:27 | Emergency (ER) | payer MEDICARE, MEDICAID ==
[~2017-10-09] VITALS: Ht 172.7 cm; Wt 92.4 kg
[2017-10-09 22:29] VITALS: BP 142/92
== END 2017-10-10 00:45 | disposition home or self-care (01) ==
LOC: ED 23:59
DX: S43.402A Unspecified sprain of left shoulder joint, initial encounter (principal); K21.9 Gastro-esophageal reflux disease without esophagitis; J44.9 Chronic obstructive pulmonary disease, unspecified; F41.9 Anxiety disorder, unspecified; E11.9 Type 2 diabetes mellitus without complications; G43.909 Migraine, unspecified, not intractable, without status migrainosus; J45.909 Unspecified asthma, uncomplicated; I10 Essential (primary) hypertension; G89.4 Chronic pain syndrome; Z90.49 Acquired absence of other specified parts of digestive tract; W18.39XA Other fall on same level, initial encounter; Y93.89 Activity, other specified; Y92.098 Other place in other non-institutional residence as the place of occurrence of the external cause; Y99.8 Other external cause status
CPT/HCPCS: 99284

== ENCOUNTER 2017-10-14 08:35 | Inpatient (IN) | payer MEDICARE, MEDICAID ==
[~2017-10-14] VITALS: Ht 172.7 cm; Wt 90.2 kg
[2017-10-14] MEDS ORDERED: ONDANSETRON ODT 4 MG PO ONE (09:00)
[2017-10-14] MEDS ORDERED: ONDANSETRON ODT 4 MG ONE (09:19)
[2017-10-14 09:20] LABS: HEMATOCRIT 47.1 % (39.2-51.8); HEMOGLOBIN 15.6 g/dL (13.7-18.0); WHITE BLOOD COUNT 6.9 x10^3/uL (3.4-10)
[2017-10-14 09:33] LABS: ASPARTATE AMINO TRANSFERASE 37 U/L (15-37); BLOOD UREA NITROGEN 11 mg/dL (7-18)
[2017-10-14] MEDS ORDERED: SODIUM CHLORIDE 0.9% 1,000ML IVBOLUS ONE (10:00)
[2017-10-14] MEDS ORDERED: SODIUM CHLORIDE 0.9% 1,000 ML IV ONE (10:07)
[2017-10-14] MEDS ORDERED: METF500T4 PO (10:30)
[2017-10-14] MEDS ORDERED: SODIUM CHLORIDE FLUSH 10ML SYR IVF PRN (10:30)
[2017-10-14] MEDS ORDERED: TOPIRAMATE 100 MG TABLET PO SCH (11:00)
[2017-10-14] MEDS ORDERED: morphine SULFATE 10 MG/ML, 1ML IVPush PRN (11:00)
[2017-10-14] MEDS ORDERED: ONDANSETRON 2MG/ML, 2ML IVPush PRN (11:00)
[2017-10-14] MEDS ORDERED: ALBUTEROL HFA 90 MCG/SPRAY INH PRN (11:00)
[2017-10-14] MEDS: ENOXAPARIN 40 MG/0.4 ML SQ SCH (11:00)
[2017-10-14] MEDS ORDERED: FAMOTIDINE 20 MG/2 ML ONE (12:09)
[2017-10-14] MEDS ORDERED: NS + 20MEQ KCL 1,000 ML IV ONE (12:09)
[2017-10-14] MEDS ORDERED: FAMOTIDINE 20 MG TABLET ONE (12:10)
[2017-10-14] MEDS: FAMOTIDINE 20 MG TABLET PO SCH ×2 (12:36→21:31)
[2017-10-14] MEDS: NS + 20MEQ KCL 1,000 ML IV SCH (12:39)
[2017-10-14] MEDS ORDERED: TOPIRAMATE 25 MG TABLET PO PRN (14:00)
[2017-10-14] MEDS: INSULIN ASPART 100 UNITS/ML, PEN SQ-INSULIN SCH ×3 (14:13→21:00)
[2017-10-14] MEDS: OXYcodone IR 5MG TABLET PO PRN ×2 (14:58→20:08)
[2017-10-14] MEDS ORDERED: ALBUTEROL SULFATE 2.5 MG/3 ML NPPB PRN (16:00)
[2017-10-14 18:55] VITALS: BP 135/89
[2017-10-15] MEDS: NS + 20MEQ KCL 1,000 ML IV SCH (01:17)
[2017-10-15 01:38] VITALS: BP 129/84
[2017-10-15 06:48] VITALS: BP 136/91
[2017-10-15] MEDS: INSULIN ASPART 100 UNITS/ML, PEN SQ-INSULIN SCH ×4 (07:00→20:21)
[2017-10-15 08:41] LABS: BLOOD UREA NITROGEN 13 mg/dL (7-18)
[2017-10-15] MEDS: FAMOTIDINE 20 MG TABLET PO SCH ×2 (08:57→20:20)
[2017-10-15] MEDS ORDERED: IPRATROPIUM 0.5 MG/2.5 ML INHA NPPB SCH (09:00)
[2017-10-15] MEDS: ENOXAPARIN 40 MG/0.4 ML SQ SCH (11:00)
[2017-10-15 12:20] VITALS: BP 129/86
[2017-10-15 20:05] VITALS: BP 142/94
[2017-10-15] MEDS: ACETAMINOPHEN 325 MG TABLET PO PRN (20:21)
[2017-10-16 01:53] VITALS: BP 121/83
[2017-10-16] MEDS: INSULIN ASPART 100 UNITS/ML, PEN SQ-INSULIN SCH ×2 (07:00→11:00)
[2017-10-16 07:49] VITALS: BP 142/97
[2017-10-16] MEDS: FAMOTIDINE 20 MG TABLET PO SCH (08:29)
[2017-10-16] MEDS: ACETAMINOPHEN 325 MG TABLET PO PRN (08:35)
[2017-10-16] MEDS: ENOXAPARIN 40 MG/0.4 ML SQ SCH (11:00)
[2017-10-16 13:52] VITALS: BP 127/86
== END 2017-10-16 15:45 | disposition home or self-care (01) | DRG 440 ==
LOC: ED 10:05 → EDIP 10:07 → 3NE 13:26
PROVIDERS: ADMIT Hospitalist; ATTEND Family Medicine
DX: K85.00 Idiopathic acute pancreatitis without necrosis or infection (principal); K70.9 Alcoholic liver disease, unspecified; E11.9 Type 2 diabetes mellitus without complications; G43.909 Migraine, unspecified, not intractable, without status migrainosus; G47.33 Obstructive sleep apnea (adult) (pediatric); G89.4 Chronic pain syndrome; F41.9 Anxiety disorder, unspecified; J44.9 Chronic obstructive pulmonary disease, unspecified; I10 Essential (primary) hypertension; K21.9 Gastro-esophageal reflux disease without esophagitis; Z83.3 Family history of diabetes mellitus; Z86.711 Personal history of pulmonary embolism; Z87.891 Personal history of nicotine dependence; Z87.01 Personal history of pneumonia (recurrent); Z79.899 Other long term (current) drug therapy; Z79.84 Long term (current) use of oral hypoglycemic drugs; Z90.49 Acquired absence of other specified parts of digestive tract
CPT/HCPCS: 36415; 80048; 80053; 80061; 81003; 82962; 83690; 85025; 87324; 99285; J2405; J3480; Q0162; J7030

== ENCOUNTER 2017-10-21 10:26 | Emergency (ER) | payer MEDICARE, MEDICAID ==
[~2017-10-21] VITALS: Ht 172.7 cm; Wt 91.1 kg
[2017-10-21] MEDS ORDERED: DIPHENHYDRAMINE 50 MG/ML, 1ML IVPush ONE (11:30)
[2017-10-21] MEDS ORDERED: METOCLOPRAMIDE 5 MG/ML, 2ML IVPush ONE (11:30)
[2017-10-21] MEDS ORDERED: SODIUM CHLORIDE 0.9% 1,000ML IVBOLUS ONE (11:30)
[2017-10-21] MEDS ORDERED: KETOROLAC 30 MG/1 ML IVPush ONE (11:30)
[2017-10-21] MEDS ORDERED: SODIUM CHLORIDE FLUSH 10ML SYR IVF ONE (11:30)
[2017-10-21] MEDS ORDERED: DIPHENHYDRAMINE 50 MG/ML, 1ML ONE (11:45)
[2017-10-21] MEDS ORDERED: METOCLOPRAMIDE 5 MG/ML, 2ML ONE (11:45)
[2017-10-21] MEDS ORDERED: KETOROLAC 30 MG/1 ML ONE (11:45)
[2017-10-21 12:07] LABS: BASOPHILS # (AUTO) 0.04 x10^3/uL (0-0.1); BASOPHILS % (AUTO) 1 % (0-1); EOSINOPHILS # (AUTO) 0.09 x10^3/uL (0-0.4); EOSINOPHILS % (AUTO) 1 % (1-7); LYMPHOCYTES # (AUTO) 1.81 x10^3/uL (1-3.4); LYMPHOCYTES % (AUTO) 23 % (22-44); MD NO; MEAN CORPUSCULAR HEMOGLOBIN 31.4 pg (27.5-34.5); MEAN CORPUSCULAR HGB CONC 33.4 g/dL (33.2-36.2); MEAN CORPUSCULAR VOLUME 94.3 fL (81-97); MEAN PLATELET VOLUME 8.1 fL (7.4-10.4); MONOCYTES # (AUTO) 0.84 x10^3/uL (0.2-0.8); MONOCYTES % (AUTO) 11 % (2-9); NEUTROPHILS # (AUTO) 5.09 x10^3/uL (1.8-6.8); NEUTROPHILS % (AUTO) 65 % (42-75); PLATELET COUNT 239 x10^3/uL (130-400); RED CELL DISTRIBUTION WIDTH 14.7 % (9.4-14.8)
[2017-10-21 13:07] LABS: ALANINE AMINOTRANSFERASE 39 U/L (12-78); ALBUMIN 3.6 g/dL (3.4-5.0); ANION GAP 7 mmol/L (5-15); CALCIUM 8.4 mg/dL (8.5-10.1); CHLORIDE 111 mmol/L (98-107); CREATININE 0.77 mg/dL (0.7-1.3)
[2017-10-21 13:09] LABS: ALKALINE PHOSPHATASE 65 U/L (45-117); BILIRUBIN,TOTAL 0.5 mg/dL (0.2-1.0); TOTAL PROTEIN 7.1 g/dL (6.4-8.2)
[2017-10-21 13:36] VITALS: BP 140/83
== END 2017-10-21 13:39 | disposition home or self-care (01) ==
LOC: ED 10:58
DX: K85.90 Acute pancreatitis without necrosis or infection, unspecified (principal); G43.909 Migraine, unspecified, not intractable, without status migrainosus; J44.9 Chronic obstructive pulmonary disease, unspecified; E11.9 Type 2 diabetes mellitus without complications; I10 Essential (primary) hypertension; K21.9 Gastro-esophageal reflux disease without esophagitis; G89.29 Other chronic pain; M54.9 Dorsalgia, unspecified; K70.9 Alcoholic liver disease, unspecified; Z90.49 Acquired absence of other specified parts of digestive tract; Z87.891 Personal history of nicotine dependence
CPT/HCPCS: 36415; 70450; 80053; 83690; 85025; 96361; 96374; 96375; 99285; J1200; J1885; J2765; J7030

== ENCOUNTER 2017-10-25 17:36 | Emergency (ER) | payer MEDICARE, MEDICAID ==
[~2017-10-25] VITALS: Ht 172.7 cm; Wt 91.5 kg
[2017-10-25 17:37] VITALS: BP 133/91
[2017-10-25] MEDS ORDERED: SODIUM CHLORIDE FLUSH 10ML SYR IVF ONE (18:00)
[2017-10-25] MEDS ORDERED: ONDANSETRON 2MG/ML, 2ML IVPush ONE (18:00)
[2017-10-25] MEDS ORDERED: SODIUM CHLORIDE 0.9% 1,000ML IVBOLUS ONE (18:00)
[2017-10-25 18:22] LABS: BASOPHILS # (AUTO) 0.04 x10^3/uL (0-0.1); BASOPHILS % (AUTO) 1 % (0-1); EOSINOPHILS # (AUTO) 0.09 x10^3/uL (0-0.4); EOSINOPHILS % (AUTO) 1 % (1-7); LYMPHOCYTES # (AUTO) 1.95 x10^3/uL (1-3.4); LYMPHOCYTES % (AUTO) 23 % (22-44); MD NO; MEAN CORPUSCULAR VOLUME 93.9 fL (81-97); MONOCYTES # (AUTO) 0.98 x10^3/uL (0.2-0.8); MONOCYTES % (AUTO) 12 % (2-9); NEUTROPHILS # (AUTO) 5.51 x10^3/uL (1.8-6.8); NEUTROPHILS % (AUTO) 64 % (42-75); PLATELET COUNT 231 x10^3/uL (130-400); RED BLOOD COUNT 5.26 x10^6/uL (4.38-5.82); RED CELL DISTRIBUTION WIDTH 14.8 % (9.4-14.8)
[2017-10-25 18:30] LABS: ALANINE AMINOTRANSFERASE 52 U/L (12-78); ANION GAP 5 mmol/L (5-15); CALCIUM 9.1 mg/dL (8.5-10.1); CHLORIDE 107 mmol/L (98-107)
[2017-10-25 18:33] LABS: ALKALINE PHOSPHATASE 80 U/L (45-117); BILIRUBIN,TOTAL 0.7 mg/dL (0.2-1.0)
[2017-10-25] MEDS ORDERED: PROMETHAZINE 25 MG/ML, 1ML IM ONE (19:00)
[2017-10-25] MEDS ORDERED: PROMETHAZINE 25 MG/ML, 1ML ONE (19:03)
== END 2017-10-25 19:56 | disposition home or self-care (01) ==
LOC: ED 19:50
DX: R10.12 Left upper quadrant pain (principal); R11.2 Nausea with vomiting, unspecified; R19.7 Diarrhea, unspecified; I10 Essential (primary) hypertension; E11.9 Type 2 diabetes mellitus without complications; K21.9 Gastro-esophageal reflux disease without esophagitis; J44.9 Chronic obstructive pulmonary disease, unspecified; Z90.49 Acquired absence of other specified parts of digestive tract; Z87.891 Personal history of nicotine dependence
CPT/HCPCS: 36415; 80053; 83690; 85025; 96372; 99284; J2550

== ENCOUNTER 2017-10-31 22:15 | Emergency (ER) | payer MEDICARE, MEDICAID ==
[~2017-10-31] VITALS: Ht 172.7 cm; Wt 91.2 kg
[2017-10-31] MEDS ORDERED: SODIUM CHLORIDE 0.9% 1,000ML IVBOLUS ONE (23:00)
[2017-10-31] MEDS ORDERED: DIPHENHYDRAMINE 50 MG/ML, 1ML IVPush ONE (23:00)
[2017-10-31] MEDS ORDERED: KETOROLAC 30 MG/1 ML IVPush ONE (23:00)
[2017-10-31] MEDS ORDERED: PROCHLORPERAZINE 5 MG/ML, 2ML IVPush ONE (23:00)
[2017-10-31 23:11] LABS: BASOPHILS # (AUTO) 0.06 x10^3/uL (0-0.1); BASOPHILS % (AUTO) 1 % (0-1); EOSINOPHILS # (AUTO) 0.09 x10^3/uL (0-0.4); EOSINOPHILS % (AUTO) 1 % (1-7); LYMPHOCYTES # (AUTO) 2.19 x10^3/uL (1-3.4); LYMPHOCYTES % (AUTO) 25 % (22-44); MD NO; MEAN CORPUSCULAR HEMOGLOBIN 31.2 pg (27.5-34.5); MEAN CORPUSCULAR HGB CONC 33.8 g/dL (33.2-36.2); MEAN CORPUSCULAR VOLUME 92.2 fL (81-97); MEAN PLATELET VOLUME 7.6 fL (7.4-10.4); MONOCYTES # (AUTO) 0.87 x10^3/uL (0.2-0.8); MONOCYTES % (AUTO) 10 % (2-9); NEUTROPHILS # (AUTO) 5.75 x10^3/uL (1.8-6.8); NEUTROPHILS % (AUTO) 64 % (42-75); PLATELET COUNT 230 x10^3/uL (130-400); RED BLOOD COUNT 5.04 x10^6/uL (4.38-5.82)
[2017-10-31 23:22] LABS: ALBUMIN 3.9 g/dL (3.4-5.0); ANION GAP 7 mmol/L (5-15); CALCIUM 9.1 mg/dL (8.5-10.1); CHLORIDE 107 mmol/L (98-107); CREATININE 0.98 mg/dL (0.7-1.3)
[2017-10-31] MEDS ORDERED: KETOROLAC 30 MG/1 ML ONE (23:29)
[2017-10-31] MEDS ORDERED: PROCHLORPERAZINE 5 MG/ML, 2ML ONE (23:29)
[2017-10-31] MEDS ORDERED: DIPHENHYDRAMINE 50 MG/ML, 1ML ONE (23:29)
[2017-11-01 00:14] VITALS: BP 144/88
== END 2017-11-01 00:15 | disposition home or self-care (01) ==
LOC: ED 23:33
DX: G43.119 Migraine with aura, intractable, without status migrainosus (principal); I10 Essential (primary) hypertension; E11.9 Type 2 diabetes mellitus without complications; J44.9 Chronic obstructive pulmonary disease, unspecified; Z90.49 Acquired absence of other specified parts of digestive tract; Z87.891 Personal history of nicotine dependence; F41.1 Generalized anxiety disorder
CPT/HCPCS: 36415; 80048; 82040; 85025; 96361; 96374; 96375; 99284; J0780; J1200; J1885; J7030

== ENCOUNTER 2017-11-06 16:25 | Emergency (ER) | payer MEDICARE, MEDICAID ==
[~2017-11-06] VITALS: Ht 172.7 cm; Wt 91.0 kg
[2017-11-06] MEDS ORDERED: IBUPROFEN 200 MG TABLET PO ONE (17:00)
[2017-11-06 17:14] LABS: BASOPHILS # (AUTO) 0.03 x10^3/uL (0-0.1); BASOPHILS % (AUTO) 1 % (0-1); EOSINOPHILS # (AUTO) 0.13 x10^3/uL (0-0.4); EOSINOPHILS % (AUTO) 2 % (1-7); LYMPHOCYTES # (AUTO) 1.65 x10^3/uL (1-3.4); LYMPHOCYTES % (AUTO) 24 % (22-44); MD NO; MEAN CORPUSCULAR HGB CONC 33.2 g/dL (33.2-36.2); MEAN CORPUSCULAR VOLUME 93.6 fL (81-97); MEAN PLATELET VOLUME 7.9 fL (7.4-10.4); MONOCYTES # (AUTO) 0.76 x10^3/uL (0.2-0.8); MONOCYTES % (AUTO) 11 % (2-9); NEUTROPHILS % (AUTO) 63 % (42-75); PLATELET COUNT 208 x10^3/uL (130-400); RED BLOOD COUNT 4.77 x10^6/uL (4.38-5.82); RED CELL DISTRIBUTION WIDTH 14.4 % (9.4-14.8)
[2017-11-06 17:19] LABS: ALANINE AMINOTRANSFERASE 35 U/L (12-78); ALBUMIN 3.2 g/dL (3.4-5.0); ANION GAP 7 mmol/L (5-15); CALCIUM 7.8 mg/dL (8.5-10.1); CHLORIDE 111 mmol/L (98-107); CREATININE 0.77 mg/dL (0.7-1.3)
[2017-11-06] MEDS ORDERED: IBUPROFEN 200 MG TABLET ONE (17:23)
[2017-11-06 17:24] LABS: ALKALINE PHOSPHATASE 72 U/L (45-117); BILIRUBIN,TOTAL 0.2 mg/dL (0.2-1.0); TOTAL PROTEIN 6.5 g/dL (6.4-8.2); TROPONIN I < 0.015 ng/mL (0.000-0.045)
[2017-11-06 18:30] VITALS: BP 124/92
== END 2017-11-06 18:32 | disposition home or self-care (01) ==
LOC: ED 17:52
DX: R42 Dizziness and giddiness (principal); R20.0 Anesthesia of skin; J44.9 Chronic obstructive pulmonary disease, unspecified; Z86.711 Personal history of pulmonary embolism; E11.9 Type 2 diabetes mellitus without complications; I11.9 Hypertensive heart disease without heart failure; K21.9 Gastro-esophageal reflux disease without esophagitis; Z90.49 Acquired absence of other specified parts of digestive tract
CPT/HCPCS: 36415; 71045; 80053; 84484; 85025; 93005; 99285

== ENCOUNTER 2017-11-11 01:00 | Emergency (ER) | payer MEDICARE, MEDICAID ==
[~2017-11-11] VITALS: Ht 172.7 cm; Wt 91.7 kg
[2017-11-11 01:02] VITALS: BP 159/93
[2017-11-11] MEDS ORDERED: MECLIZINE CHEWABLE 25 MG TAB ONE (01:37)
[2017-11-11] MEDS ORDERED: MECLIZINE CHEWABLE 25 MG TAB PO ONE (02:00)
== END 2017-11-11 02:28 | disposition home or self-care (01) ==
LOC: ED 01:29
DX: R42 Dizziness and giddiness (principal); I10 Essential (primary) hypertension; J44.9 Chronic obstructive pulmonary disease, unspecified; K21.9 Gastro-esophageal reflux disease without esophagitis; E11.9 Type 2 diabetes mellitus without complications; Z90.49 Acquired absence of other specified parts of digestive tract
CPT/HCPCS: 93005; 99283

== ENCOUNTER 2017-12-01 13:57 | Emergency (ER) | payer MEDICARE, MEDICAID ==
[~2017-12-01] VITALS: Ht 172.7 cm; Wt 87.0 kg
[2017-12-01 14:06] VITALS: BP 145/101
== END 2017-12-01 15:46 | disposition home or self-care (01) ==
LOC: ED 15:34
DX: S80.02XA Contusion of left knee, initial encounter (principal); G43.909 Migraine, unspecified, not intractable, without status migrainosus; I10 Essential (primary) hypertension; J44.9 Chronic obstructive pulmonary disease, unspecified; K21.9 Gastro-esophageal reflux disease without esophagitis; K29.70 Gastritis, unspecified, without bleeding; X58.XXXA Exposure to other specified factors, initial encounter; Y93.89 Activity, other specified; Y99.8 Other external cause status; Y92.89 Other specified places as the place of occurrence of the external cause
CPT/HCPCS: 99284

== ENCOUNTER 2017-12-19 12:38 | Emergency (ER) | payer MEDICARE, MEDICAID ==
[~2017-12-19] VITALS: Ht 172.7 cm; Wt 91.9 kg
[2017-12-19 13:21] LABS: BASOPHILS # (AUTO) 0.05 x10^3/uL (0-0.1); BASOPHILS % (AUTO) 1 % (0-1); EOSINOPHILS # (AUTO) 0.09 x10^3/uL (0-0.4); EOSINOPHILS % (AUTO) 1 % (1-7); LYMPHOCYTES # (AUTO) 1.81 x10^3/uL (1-3.4); LYMPHOCYTES % (AUTO) 24 % (22-44); MD NO; MEAN CORPUSCULAR HGB CONC 33.2 g/dL (33.2-36.2); MEAN CORPUSCULAR VOLUME 93.4 fL (81-97); MONOCYTES # (AUTO) 0.74 x10^3/uL (0.2-0.8); MONOCYTES % (AUTO) 10 % (2-9); NEUTROPHILS # (AUTO) 4.98 x10^3/uL (1.8-6.8); NEUTROPHILS % (AUTO) 65 % (42-75); PLATELET COUNT 240 x10^3/uL (130-400); RED BLOOD COUNT 5.57 x10^6/uL (4.38-5.82); RED CELL DISTRIBUTION WIDTH 14.3 % (9.4-14.8)
[2017-12-19 13:33] LABS: ALBUMIN 4.1 g/dL (3.4-5.0); ANION GAP 8 mmol/L (5-15); CHLORIDE 105 mmol/L (98-107)
[2017-12-19 13:54] LABS: ALANINE AMINOTRANSFERASE 44 U/L (12-78); ALKALINE PHOSPHATASE 95 U/L (45-117); BILIRUBIN,TOTAL 0.8 mg/dL (0.2-1.0); CREATININE 1.04 mg/dL (0.7-1.3); TOTAL PROTEIN 8.3 g/dL (6.4-8.2); TROPONIN I < 0.015 ng/mL (0.000-0.045)
[2017-12-19] MEDS ORDERED: MECLIZINE CHEWABLE 25 MG TAB ONE (14:20)
[2017-12-19] MEDS ORDERED: MECLIZINE CHEWABLE 25 MG TAB PO ONE (14:30)
[2017-12-19 15:17] VITALS: BP 118/79
== END 2017-12-19 16:10 | disposition home or self-care (01) ==
LOC: ED 16:09
DX: R42 Dizziness and giddiness (principal); E11.9 Type 2 diabetes mellitus without complications; K21.9 Gastro-esophageal reflux disease without esophagitis; J44.9 Chronic obstructive pulmonary disease, unspecified; I10 Essential (primary) hypertension
CPT/HCPCS: 36415; 71045; 80053; 83880; 84484; 85025; 93005; 99285

== ENCOUNTER 2018-01-03 07:59 | Emergency (ER) | payer MEDICARE, MEDICAID ==
[~2018-01-03] VITALS: Ht 172.7 cm; Wt 94.4 kg
[2018-01-03 08:04] VITALS: BP 125/92
== END 2018-01-03 09:57 | disposition left against medical advice (07) ==
LOC: ED 09:51
DX: M54.9 Dorsalgia, unspecified (principal); Z53.21 Procedure and treatment not carried out due to patient leaving prior to being seen by health care provider

== ENCOUNTER 2018-01-09 18:13 | Emergency (ER) | payer MEDICARE, MEDICAID ==
[~2018-01-09] VITALS: Ht 172.7 cm; Wt 94.5 kg
[2018-01-09] MEDS ORDERED: ACETAMINOPHEN 500 MG TABLET PO ONE (18:30)
[2018-01-09 19:09] VITALS: BP 142/99
== END 2018-01-09 19:11 | disposition home or self-care (01) ==
LOC: ED 18:45
DX: S09.8XXA Other specified injuries of head, initial encounter (principal); I10 Essential (primary) hypertension; E11.9 Type 2 diabetes mellitus without complications; J44.9 Chronic obstructive pulmonary disease, unspecified; K21.9 Gastro-esophageal reflux disease without esophagitis; G89.29 Other chronic pain; G47.33 Obstructive sleep apnea (adult) (pediatric); G43.909 Migraine, unspecified, not intractable, without status migrainosus; W18.39XA Other fall on same level, initial encounter; Y93.89 Activity, other specified; Y92.098 Other place in other non-institutional residence as the place of occurrence of the external cause; Y99.8 Other external cause status; Z86.711 Personal history of pulmonary embolism; Z87.891 Personal history of nicotine dependence; Z90.49 Acquired absence of other specified parts of digestive tract
CPT/HCPCS: 70450; 99284

== ENCOUNTER 2018-03-15 07:22 | Emergency (ER) | payer MEDICARE, MEDICAID ==
[~2018-03-15] VITALS: Ht 172.7 cm; Wt 95.0 kg
[2018-03-15] MEDS ORDERED: SODIUM CHLORIDE FLUSH 10ML SYR IVF ONE (08:00)
[2018-03-15 08:13] LABS: BASOPHILS # (AUTO) 0.02 x10^3/uL (0-0.1); BASOPHILS % (AUTO) 0 % (0-1); EOSINOPHILS # (AUTO) 0.07 x10^3/uL (0-0.4); EOSINOPHILS % (AUTO) 1 % (1-7); LYMPHOCYTES # (AUTO) 1.35 x10^3/uL (1-3.4); LYMPHOCYTES % (AUTO) 20 % (22-44); MD NO; MEAN CORPUSCULAR HEMOGLOBIN 30.9 pg (27.5-34.5); MEAN CORPUSCULAR HGB CONC 33.6 g/dL (33.2-36.2); MEAN CORPUSCULAR VOLUME 91.9 fL (81-97); MEAN PLATELET VOLUME 7.9 fL (7.4-10.4); MONOCYTES % (AUTO) 9 % (2-9); NEUTROPHILS # (AUTO) 4.75 x10^3/uL (1.8-6.8); NEUTROPHILS % (AUTO) 70 % (42-75); PLATELET COUNT 190 x10^3/uL (130-400); RED BLOOD COUNT 5.36 x10^6/uL (4.38-5.82); RED CELL DISTRIBUTION WIDTH 14.3 % (9.4-14.8)
[2018-03-15 08:20] LABS: INTERNATIONAL NORMALIZED RATIO 0.97 (0.93-1.1); PROTHROMBIN TIME 10.1 Seconds (9.6-11.5)
[2018-03-15 08:24] LABS: ALANINE AMINOTRANSFERASE 54 U/L (12-78); ALBUMIN 3.8 g/dL (3.4-5.0); ANION GAP 6 mmol/L (5-15); CALCIUM 8.7 mg/dL (8.5-10.1); CHLORIDE 106 mmol/L (98-107)
[2018-03-15 08:26] LABS: ALKALINE PHOSPHATASE 94 U/L (45-117); BILIRUBIN,TOTAL 0.6 mg/dL (0.2-1.0); TOTAL PROTEIN 7.9 g/dL (6.4-8.2)
[2018-03-15] MEDS ORDERED: LISI-167 PO (08:29)
[2018-03-15] MEDS ORDERED: OMEP20TA62 PO (08:29)
[2018-03-15 10:12] VITALS: BP 130/80
== END 2018-03-15 10:14 | disposition home or self-care (01) ==
LOC: ED 09:22
DX: K29.70 Gastritis, unspecified, without bleeding (principal); E11.9 Type 2 diabetes mellitus without complications; I10 Essential (primary) hypertension; J44.9 Chronic obstructive pulmonary disease, unspecified; K21.9 Gastro-esophageal reflux disease without esophagitis; J45.909 Unspecified asthma, uncomplicated; Z87.891 Personal history of nicotine dependence; Z90.49 Acquired absence of other specified parts of digestive tract
CPT/HCPCS: 36415; 74022; 80053; 83690; 85025; 85610; 93005; 99285

== ENCOUNTER 2018-04-29 21:33 | Emergency (ER) | payer MEDICARE, MEDICAID ==
[~2018-04-29] VITALS: Ht 172.7 cm; Wt 95.6 kg
[~2018-04-29 21:33] MED LIST changes: -METF500T4 PO; +METF500T5 PO; +OMEP20TA62 PO
[2018-04-29 21:34] VITALS: BP 146/91
[2018-04-29] MEDS ORDERED: HYDROcodone/APAP 5/325 TABLET PO ONE (22:00)
[2018-04-29] MEDS ORDERED: FAMOTIDINE 20 MG TABLET PO ONE (22:00)
[2018-04-29] MEDS ORDERED: ONDANSETRON ODT 4 MG PO ONE (22:00)
[2018-04-29] MEDS ORDERED: FAMOTIDINE 20 MG TABLET ONE (22:09)
[2018-04-29] MEDS ORDERED: HYDROcodone/APAP 5/325 TABLET ONE (22:10)
[2018-04-29] MEDS ORDERED: ONDANSETRON ODT 4 MG ONE (22:10)
[2018-04-29 22:17] LABS: BASOPHILS # (AUTO) 0.07 x10^3/uL (0-0.1); BASOPHILS % (AUTO) 1 % (0-1); EOSINOPHILS # (AUTO) 0.13 x10^3/uL (0-0.4); EOSINOPHILS % (AUTO) 2 % (1-7); LYMPHOCYTES % (AUTO) 28 % (22-44); MD NO; MEAN CORPUSCULAR HEMOGLOBIN 31.4 pg (27.5-34.5); MEAN CORPUSCULAR HGB CONC 33.4 g/dL (33.2-36.2); MEAN CORPUSCULAR VOLUME 93.8 fL (81-97); MEAN PLATELET VOLUME 7.5 fL (7.4-10.4); MONOCYTES # (AUTO) 0.97 x10^3/uL (0.2-0.8); MONOCYTES % (AUTO) 11 % (2-9); NEUTROPHILS # (AUTO) 5.15 x10^3/uL (1.8-6.8); NEUTROPHILS % (AUTO) 59 % (42-75); PLATELET COUNT 251 x10^3/uL (130-400); RED CELL DISTRIBUTION WIDTH 14.3 % (9.4-14.8)
[2018-04-29 22:24] LABS: ALANINE AMINOTRANSFERASE 49 U/L (12-78); ALBUMIN 3.8 g/dL (3.4-5.0); ANION GAP 6 mmol/L (5-15); CALCIUM 9.1 mg/dL (8.5-10.1); CHLORIDE 111 mmol/L (98-107); CREATININE 1.04 mg/dL (0.7-1.3)
[2018-04-29 22:28] LABS: ALKALINE PHOSPHATASE 95 U/L (45-117); BILIRUBIN,TOTAL 0.3 mg/dL (0.2-1.0); TOTAL PROTEIN 7.6 g/dL (6.4-8.2); TROPONIN I < 0.015 ng/mL (0.000-0.045)
[2018-04-29 22:36] LABS: MICROSCOPIC NOT IND
[2018-04-29 22:39] LABS: CULTURE INDICATED? NO
== END 2018-04-29 22:58 | disposition home or self-care (01) ==
LOC: ED 22:07
DX: R10.84 Generalized abdominal pain (principal); R07.2 Precordial pain; M54.9 Dorsalgia, unspecified; G89.29 Other chronic pain; J44.9 Chronic obstructive pulmonary disease, unspecified; E11.9 Type 2 diabetes mellitus without complications; I10 Essential (primary) hypertension; K21.9 Gastro-esophageal reflux disease without esophagitis; Z72.9 Problem related to lifestyle, unspecified; Z87.891 Personal history of nicotine dependence; Z90.49 Acquired absence of other specified parts of digestive tract
CPT/HCPCS: 36415; 74022; 80053; 80307; 81003; 83690; 84484; 85025; 93005; 99285; Q0162

== ENCOUNTER 2018-05-14 16:59 | Emergency (ER) | payer MEDICARE, MEDICAID ==
[~2018-05-14] VITALS: Ht 172.7 cm; Wt 97.3 kg
[2018-05-14 17:06] VITALS: BP 153/98
[2018-05-14] MEDS ORDERED: LIDOCAINE-MPF 1%, 5ML INFIL ONE (18:30)
[2018-05-14] MEDS ORDERED: LIDOCAINE-MPF 2% ,5ML ONE (18:33)
[2018-05-14] MEDS ORDERED: BACITRACIN ZINC OINT 500U/GM, 0.9 GM ONE (18:42)
== END 2018-05-14 19:03 | disposition home or self-care (01) ==
LOC: ED 19:00
DX: S90.452A Superficial foreign body, left great toe, initial encounter (principal); I10 Essential (primary) hypertension; J44.9 Chronic obstructive pulmonary disease, unspecified; G89.29 Other chronic pain; E11.9 Type 2 diabetes mellitus without complications; K21.9 Gastro-esophageal reflux disease without esophagitis; G47.30 Sleep apnea, unspecified; Z90.89 Acquired absence of other organs; Z86.711 Personal history of pulmonary embolism; Z90.49 Acquired absence of other specified parts of digestive tract; W45.8XXA Other foreign body or object entering through skin, initial encounter; Y93.89 Activity, other specified; Y92.89 Other specified places as the place of occurrence of the external cause; Y99.8 Other external cause status
CPT/HCPCS: 99284

== ENCOUNTER 2018-05-28 00:37 | Emergency (ER) | payer MEDICARE, MEDICAID ==
[~2018-05-28] VITALS: Ht 175.3 cm; Wt 98.0 kg
[2018-05-28 01:19] LABS: BASOPHILS # (AUTO) 0.05 x10^3/uL (0-0.1); BASOPHILS % (AUTO) 1 % (0-1); EOSINOPHILS # (AUTO) 0.14 x10^3/uL (0-0.4); EOSINOPHILS % (AUTO) 2 % (1-7); LYMPHOCYTES # (AUTO) 1.85 x10^3/uL (1-3.4); LYMPHOCYTES % (AUTO) 25 % (22-44); MD NO; MEAN CORPUSCULAR HEMOGLOBIN 31.7 pg (27.5-34.5); MEAN CORPUSCULAR HGB CONC 33.9 g/dL (33.2-36.2); MEAN CORPUSCULAR VOLUME 93.7 fL (81-97); MEAN PLATELET VOLUME 7.9 fL (7.4-10.4); MONOCYTES # (AUTO) 0.96 x10^3/uL (0.2-0.8); MONOCYTES % (AUTO) 13 % (2-9); NEUTROPHILS # (AUTO) 4.28 x10^3/uL (1.8-6.8); NEUTROPHILS % (AUTO) 59 % (42-75); PLATELET COUNT 194 x10^3/uL (130-400); RED BLOOD COUNT 4.81 x10^6/uL (4.38-5.82); RED CELL DISTRIBUTION WIDTH 14.3 % (9.4-14.8)
[2018-05-28 01:29] LABS: ALANINE AMINOTRANSFERASE 47 U/L (12-78); ALBUMIN 3.5 g/dL (3.4-5.0); ANION GAP 6 mmol/L (5-15); CALCIUM 8.6 mg/dL (8.5-10.1); CHLORIDE 109 mmol/L (98-107); CREATININE 1.05 mg/dL (0.7-1.3)
[2018-05-28 01:31] LABS: ALKALINE PHOSPHATASE 85 U/L (45-117); BILIRUBIN,TOTAL 0.3 mg/dL (0.2-1.0); TOTAL PROTEIN 7.2 g/dL (6.4-8.2)
[2018-05-28 02:16] LABS: MICROSCOPIC AUTO
[2018-05-28 02:19] LABS: CULTURE INDICATED? YES
[2018-05-28 03:23] VITALS: BP 149/88
== END 2018-05-28 03:32 | disposition home or self-care (01) ==
LOC: ED 01:46
DX: R33.9 Retention of urine, unspecified (principal); E11.9 Type 2 diabetes mellitus without complications; I10 Essential (primary) hypertension; K21.9 Gastro-esophageal reflux disease without esophagitis; G43.909 Migraine, unspecified, not intractable, without status migrainosus; J44.9 Chronic obstructive pulmonary disease, unspecified; Z87.891 Personal history of nicotine dependence
CPT/HCPCS: 36415; 51701; 80053; 81001; 85025; 87086; 99284; P9612

== ENCOUNTER 2018-07-24 17:04 | Emergency (ER) | payer MEDICARE, MEDICAID ==
[~2018-07-24] VITALS: Ht 172.7 cm; Wt 95.9 kg
[~2018-07-24 17:04] MED LIST changes: -AMLO5TAB2; +AMLO5TAB7; +METF500T17 PO; -METF500T5 PO
[2018-07-24] MEDS ORDERED: KETOROLAC 30 MG/1 ML IVPush ONE (17:30)
[2018-07-24] MEDS ORDERED: PROMETHAZINE 25 MG/ML, 1ML IM ONE (17:30)
[2018-07-24 18:05] LABS: BASOPHILS # (AUTO) 0.05 x10^3/uL (0-0.1); BASOPHILS % (AUTO) 1 % (0-1); EOSINOPHILS # (AUTO) 0.13 x10^3/uL (0-0.4); EOSINOPHILS % (AUTO) 2 % (1-7); LYMPHOCYTES # (AUTO) 1.68 x10^3/uL (1-3.4); LYMPHOCYTES % (AUTO) 20 % (22-44); MD NO; MEAN CORPUSCULAR HEMOGLOBIN 31.8 pg (27.5-34.5); MEAN CORPUSCULAR HGB CONC 33.7 g/dL (33.2-36.2); MEAN CORPUSCULAR VOLUME 94.3 fL (81-97); MEAN PLATELET VOLUME 8.2 fL (7.4-10.4); MONOCYTES % (AUTO) 8 % (2-9); NEUTROPHILS # (AUTO) 5.81 x10^3/uL (1.8-6.8); NEUTROPHILS % (AUTO) 70 % (42-75); PLATELET COUNT 210 x10^3/uL (130-400); RED BLOOD COUNT 5.31 x10^6/uL (4.38-5.82); RED CELL DISTRIBUTION WIDTH 14.4 % (9.4-14.8)
[2018-07-24] MEDS ORDERED: KETOROLAC 30 MG/1 ML ONE (18:10)
[2018-07-24 18:16] LABS: ALANINE AMINOTRANSFERASE 60 U/L (12-78); ALBUMIN 3.8 g/dL (3.4-5.0); ANION GAP 8 mmol/L (5-15); CALCIUM 8.7 mg/dL (8.5-10.1); CHLORIDE 108 mmol/L (98-107); CREATININE 1.17 mg/dL (0.7-1.3)
[2018-07-24 18:19] LABS: ALKALINE PHOSPHATASE 89 U/L (45-117); BILIRUBIN,TOTAL 0.5 mg/dL (0.2-1.0)
[2018-07-24] MEDS ORDERED: PROMETHAZINE 25MG TABLET ONE (18:19)
[2018-07-24 18:25] VITALS: BP 125/81
[2018-07-24] MEDS ORDERED: PROMETHAZINE 25MG TABLET PO ONE (18:30)
[2018-07-24] MEDS ORDERED: KETOROLAC 30 MG/1 ML IM ONE (18:30)
== END 2018-07-24 19:16 | disposition home or self-care (01) ==
LOC: ED 17:16
DX: S76.112A Strain of left quadriceps muscle, fascia and tendon, initial encounter (principal); K21.9 Gastro-esophageal reflux disease without esophagitis; J44.9 Chronic obstructive pulmonary disease, unspecified; I10 Essential (primary) hypertension; E11.9 Type 2 diabetes mellitus without complications; J45.909 Unspecified asthma, uncomplicated; F41.1 Generalized anxiety disorder; Z87.891 Personal history of nicotine dependence; Z90.89 Acquired absence of other organs; Z90.49 Acquired absence of other specified parts of digestive tract; X58.XXXA Exposure to other specified factors, initial encounter; Y93.89 Activity, other specified; Y92.89 Other specified places as the place of occurrence of the external cause; Y99.8 Other external cause status
CPT/HCPCS: 36415; 80053; 83690; 85025; 96374; 99284; J1885; Q0169

== ENCOUNTER 2018-08-12 11:49 | Emergency (ER) | payer MEDICARE, MEDICAID ==
[~2018-08-12] VITALS: Ht 172.7 cm; Wt 95.0 kg
[~2018-08-12 11:49] MED LIST changes: -NEBI5TAB2 PO; +NEBI5TAB3 PO
[2018-08-12 11:56] VITALS: BP 141/82
== END 2018-08-12 13:08 | disposition home or self-care (01) ==
LOC: ED 13:02
DX: R07.89 Other chest pain (principal); I10 Essential (primary) hypertension; E11.9 Type 2 diabetes mellitus without complications; K21.9 Gastro-esophageal reflux disease without esophagitis; J44.9 Chronic obstructive pulmonary disease, unspecified; Z90.89 Acquired absence of other organs; Z90.49 Acquired absence of other specified parts of digestive tract; Z87.891 Personal history of nicotine dependence
CPT/HCPCS: 93005; 99283

== ENCOUNTER 2018-08-17 20:49 | Emergency (ER) | payer MEDICARE, MEDICAID ==
[~2018-08-17] VITALS: Ht 172.7 cm; Wt 95.6 kg
[2018-08-17 20:50] VITALS: BP 142/97
== END 2018-08-17 22:25 | disposition home or self-care (01) ==
LOC: ED 22:21
DX: S30.0XXA Contusion of lower back and pelvis, initial encounter (principal); K21.9 Gastro-esophageal reflux disease without esophagitis; J44.9 Chronic obstructive pulmonary disease, unspecified; E11.9 Type 2 diabetes mellitus without complications; I11.9 Hypertensive heart disease without heart failure; F41.1 Generalized anxiety disorder; Z90.89 Acquired absence of other organs; Z90.49 Acquired absence of other specified parts of digestive tract; W01.0XXA Fall on same level from slipping, tripping and stumbling without subsequent striking against object, initial encounter; Y93.89 Activity, other specified; Y92.009 Unspecified place in unspecified non-institutional (private) residence as the place of occurrence of the external cause; Y99.8 Other external cause status
CPT/HCPCS: 72110; 99284

== ENCOUNTER 2018-09-25 21:33 | Emergency (ER) | payer MEDICARE, MEDICAID ==
[~2018-09-25] VITALS: Ht 172.7 cm; Wt 92.0 kg
[~2018-09-25 21:33] MED LIST changes: +AMLO-150; -AMLO5TAB7; -ASPI-621 PO; +ASPI81TA45 PO
[2018-09-25 21:40] VITALS: BP 131/80
[2018-09-25] MEDS ORDERED: FAMOTIDINE 20 MG TABLET ONE (22:21)
[2018-09-25] MEDS ORDERED: ONDANSETRON ODT 4 MG ONE (22:21)
[2018-09-25] MEDS ORDERED: MAALOX/HYOSCYAMINE/LIDOCAINE 45 ML BTL ONE (22:21)
[2018-09-25] MEDS ORDERED: ONDANSETRON ODT 4 MG PO ONE (22:30)
[2018-09-25] MEDS ORDERED: MAALOX/HYOSCYAMINE/LIDOCAINE 45 ML BTL PO ONE (22:30)
[2018-09-25] MEDS ORDERED: FAMOTIDINE 20 MG TABLET PO ONE (22:30)
[2018-09-25 22:31] LABS: BASOPHILS # (AUTO) 0.04 x10^3/uL (0-0.1); BASOPHILS % (AUTO) 1 % (0-1); EOSINOPHILS # (AUTO) 0.13 x10^3/uL (0-0.4); EOSINOPHILS % (AUTO) 2 % (1-7); LYMPHOCYTES # (AUTO) 1.66 x10^3/uL (1-3.4); LYMPHOCYTES % (AUTO) 23 % (22-44); MD NO; MEAN CORPUSCULAR HEMOGLOBIN 31.5 pg (27.5-34.5); MEAN CORPUSCULAR HGB CONC 33.6 g/dL (33.2-36.2); MEAN CORPUSCULAR VOLUME 93.8 fL (81-97); MEAN PLATELET VOLUME 7.8 fL (7.4-10.4); MONOCYTES # (AUTO) 0.78 x10^3/uL (0.2-0.8); MONOCYTES % (AUTO) 11 % (2-9); NEUTROPHILS # (AUTO) 4.57 x10^3/uL (1.8-6.8); NEUTROPHILS % (AUTO) 64 % (42-75); PLATELET COUNT 215 x10^3/uL (130-400); RED BLOOD COUNT 5.38 x10^6/uL (4.38-5.82); RED CELL DISTRIBUTION WIDTH 13.9 % (9.4-14.8)
[2018-09-25 22:41] LABS: ALANINE AMINOTRANSFERASE 44 U/L (12-78); ALBUMIN 3.7 g/dL (3.4-5.0); ANION GAP 6 mmol/L (5-15); CALCIUM 8.7 mg/dL (8.5-10.1); CHLORIDE 108 mmol/L (98-107); CREATININE 1.17 mg/dL (0.7-1.3)
[2018-09-25 22:44] LABS: ALKALINE PHOSPHATASE 87 U/L (45-117); BILIRUBIN,TOTAL 0.3 mg/dL (0.2-1.0); TOTAL PROTEIN 7.6 g/dL (6.4-8.2)
[2018-09-25 23:23] LABS: MICROSCOPIC NOT IND
[2018-09-25 23:25] LABS: CULTURE INDICATED? NO
== END 2018-09-26 00:23 | disposition home or self-care (01) ==
LOC: ED 22:36
DX: R10.12 Left upper quadrant pain (principal); R10.32 Left lower quadrant pain; E11.9 Type 2 diabetes mellitus without complications; I10 Essential (primary) hypertension; J44.9 Chronic obstructive pulmonary disease, unspecified; K21.9 Gastro-esophageal reflux disease without esophagitis; Z90.49 Acquired absence of other specified parts of digestive tract
CPT/HCPCS: 36415; 80053; 81003; 83690; 85025; 99284; Q0162

== ENCOUNTER 2018-10-15 17:32 | Emergency (ER) | payer MEDICARE, MEDICAID ==
[~2018-10-15] VITALS: Ht 172.7 cm; Wt 93.6 kg
[2018-10-15 18:32] VITALS: BP 130/88
== END 2018-10-15 18:42 | disposition home or self-care (01) ==
LOC: ED 17:54
DX: R07.89 Other chest pain (principal); J44.9 Chronic obstructive pulmonary disease, unspecified; K21.9 Gastro-esophageal reflux disease without esophagitis; I10 Essential (primary) hypertension; E11.9 Type 2 diabetes mellitus without complications; F17.200 Nicotine dependence, unspecified, uncomplicated; Z90.49 Acquired absence of other specified parts of digestive tract
CPT/HCPCS: 93005; 99283

== ENCOUNTER 2018-10-28 18:58 | Emergency (ER) | payer MEDICARE, MEDICAID ==
[~2018-10-28] VITALS: Ht 172.7 cm; Wt 95.7 kg
[2018-10-28 19:07] VITALS: BP 151/90
== END 2018-10-28 20:12 | disposition home or self-care (01) ==
LOC: ED 20:06
DX: S93.491A Sprain of other ligament of right ankle, initial encounter (principal); K21.9 Gastro-esophageal reflux disease without esophagitis; I10 Essential (primary) hypertension; J44.9 Chronic obstructive pulmonary disease, unspecified; Z90.49 Acquired absence of other specified parts of digestive tract; X50.1XXA Overexertion from prolonged static or awkward postures, initial encounter; Y93.89 Activity, other specified; Y92.410 Unspecified street and highway as the place of occurrence of the external cause; Y99.8 Other external cause status
CPT/HCPCS: 29125; 99283

== ENCOUNTER 2018-12-27 15:33 | Emergency (ER) | payer MEDICARE, MEDICAID ==
[~2018-12-27] VITALS: Ht 172.7 cm; Wt 97.8 kg
[2018-12-27 15:49] VITALS: BP 151/95
[2018-12-27 16:18] LABS: BASOPHILS # (AUTO) 0.04 x10^3/uL (0-0.1); BASOPHILS % (AUTO) 1 % (0-1); EOSINOPHILS # (AUTO) 0.16 x10^3/uL (0-0.4); EOSINOPHILS % (AUTO) 2 % (1-7); LYMPHOCYTES # (AUTO) 1.83 x10^3/uL (1-3.4); LYMPHOCYTES % (AUTO) 25 % (22-44); MD NO; MEAN CORPUSCULAR HEMOGLOBIN 31.5 pg (27.5-34.5); MEAN CORPUSCULAR HGB CONC 33.9 g/dL (33.2-36.2); MEAN CORPUSCULAR VOLUME 92.8 fL (81-97); MEAN PLATELET VOLUME 8.1 fL (7.4-10.4); MONOCYTES # (AUTO) 0.81 x10^3/uL (0.2-0.8); MONOCYTES % (AUTO) 11 % (2-9); NEUTROPHILS # (AUTO) 4.44 x10^3/uL (1.8-6.8); NEUTROPHILS % (AUTO) 61 % (42-75); PLATELET COUNT 207 x10^3/uL (130-400); RED BLOOD COUNT 5.51 x10^6/uL (4.38-5.82); RED CELL DISTRIBUTION WIDTH 14.3 % (9.4-14.8)
[2018-12-27 16:31] LABS: ALBUMIN 4.1 g/dL (3.4-5.0); ANION GAP 3 mmol/L (5-15); CALCIUM 8.5 mg/dL (8.5-10.1); CHLORIDE 107 mmol/L (98-107)
[2018-12-27 16:34] LABS: ALANINE AMINOTRANSFERASE 44 U/L (12-78); ALKALINE PHOSPHATASE 103 U/L (45-117); BILIRUBIN,TOTAL 0.3 mg/dL (0.2-1.0); CREATININE 1.07 mg/dL (0.7-1.3); TOTAL PROTEIN 7.8 g/dL (6.4-8.2)
== END 2018-12-28 00:02 | disposition left against medical advice (07) ==
LOC: ED 23:55
DX: R42 Dizziness and giddiness (principal); R30.0 Dysuria
CPT/HCPCS: 36415; 71046; 80053; 85025; 93005; 99284

== ENCOUNTER 2019-01-09 09:38 | Emergency (ER) | payer MEDICARE, MEDICAID ==
[~2019-01-09] VITALS: Ht 172.7 cm; Wt 94.0 kg
[2019-01-09 10:29] LABS: BASOPHILS # (AUTO) 0.03 x10^3/uL (0-0.1); BASOPHILS % (AUTO) 1 % (0-1); EOSINOPHILS % (AUTO) 2 % (1-7); LYMPHOCYTES # (AUTO) 1.68 x10^3/uL (1-3.4); LYMPHOCYTES % (AUTO) 26 % (22-44); MD NO; MEAN CORPUSCULAR HEMOGLOBIN 30.5 pg (27.5-34.5); MEAN CORPUSCULAR HGB CONC 32.7 g/dL (33.2-36.2); MEAN CORPUSCULAR VOLUME 93.1 fL (81-97); MEAN PLATELET VOLUME 7.4 fL (7.4-10.4); MONOCYTES # (AUTO) 0.74 x10^3/uL (0.2-0.8); MONOCYTES % (AUTO) 12 % (2-9); NEUTROPHILS % (AUTO) 60 % (42-75); PLATELET COUNT 190 x10^3/uL (130-400); RED BLOOD COUNT 5.55 x10^6/uL (4.38-5.82); RED CELL DISTRIBUTION WIDTH 14.8 % (9.4-14.8)
[2019-01-09 10:42] LABS: ALANINE AMINOTRANSFERASE 40 U/L (12-78); ALBUMIN 3.8 g/dL (3.4-5.0); CALCIUM 8.9 mg/dL (8.5-10.1); CHLORIDE 106 mmol/L (98-107); CREATININE 1.08 mg/dL (0.7-1.3)
[2019-01-09 10:44] LABS: ALKALINE PHOSPHATASE 86 U/L (45-117); BILIRUBIN,TOTAL 0.5 mg/dL (0.2-1.0); TOTAL PROTEIN 7.8 g/dL (6.4-8.2)
[2019-01-09 10:49] LABS: ANION GAP 1 mmol/L (5-15)
--- NOTE | 2019-01-09 11:06 | NUR ---
pt presented to ed with abd pain for a few days. pt denies nausea or vomitting. urine collected and sent to lab. assessment completed. pt placed on bp and cont. pulse oximeter.
[2019-01-09 11:15] LABS: CULTURE INDICATED? YES; MICROSCOPIC INDICATED
--- NOTE | 2019-01-09 11:55 | NUR ---
RAI RN FOR PRIMARY RN DAVID. PT RESTING IN POSITION OF COMFORT, DOZING INTERMITTENTLY, PULSE OX 92% RA. DENIES NEED TO USE RESTROOM. VSS. DR. CLAY AT BEDSIDE FOR RECHECK. CALL LIGHT IN REACH. FALL PRECAUTIONS IN PLACE.
[2019-01-09] MEDS ORDERED: MAALOX/HYOSCYAMINE/LIDOCAINE 45 ML BTL PO ONE (12:00)
[2019-01-09] MEDS ORDERED: MAALOX/HYOSCYAMINE/LIDOCAINE 45 ML BTL ONE (12:22)
--- NOTE | 2019-01-09 12:25 | NUR ---
BEDSIDE REPORT AND CARE BACK TO PRIMARY RN DAVID AT THIS TIME.
[2019-01-09 12:55] VITALS: BP 148/78
== END 2019-01-09 12:57 | disposition home or self-care (01) ==
LOC: ED 11:47
DX: N30.00 Acute cystitis without hematuria (principal); E11.9 Type 2 diabetes mellitus without complications; I11.9 Hypertensive heart disease without heart failure; J44.9 Chronic obstructive pulmonary disease, unspecified; Z90.89 Acquired absence of other organs; Z90.49 Acquired absence of other specified parts of digestive tract; Z87.891 Personal history of nicotine dependence
CPT/HCPCS: 36415; 71045; 80053; 81001; 83690; 85025; 87086; 93005; 99284

== ENCOUNTER 2019-02-02 06:48 | Emergency (ER) | payer MEDICARE, MEDICAID ==
[~2019-02-02] VITALS: Ht 172.7 cm; Wt 94.0 kg
--- NOTE | 2019-02-02 06:58 | NUR ---
53 YR OLD MALE ARRIVED VIA EMS WITH C/O 8/10 SHARP PAIN BELOW THE XYPHOID PROCESS. DX WITH [facility]ITAL HERNIA 4 DAYS AGO AT [facility]. WAS TO F/U WITH PCP. HAS APPT AT 09 TODAY. "PAIN JUST GOT TOO BAD" PT SITTING UP ON GURNEY, NO ACUTE DISTRESS. PT UPDATED ON POC. URINAL AT BEDSIDE.
--- NOTE | 2019-02-02 07:07 | NUR ---
PT TO BR, ABLE TO PROVIDE URINE SPECIMAN.
[2019-02-02] MEDS ORDERED: MORPHINE SULFATE 4 MG/ML, 1ML IVPush PRN (07:30)
[2019-02-02] MEDS ORDERED: SODIUM CHLORIDE FLUSH 10ML SYR IVF ONE (07:30)
[2019-02-02] MEDS ORDERED: ONDANSETRON 2MG/ML, 2ML IVPush ONE (07:30)
[2019-02-02 07:43] LABS: MICROSCOPIC AUTO
[2019-02-02 07:44] LABS: BASOPHILS # (AUTO) 0.02 x10^3/uL (0-0.1); BASOPHILS % (AUTO) 0 % (0-1); EOSINOPHILS % (AUTO) 2 % (1-7); LYMPHOCYTES # (AUTO) 1.35 x10^3/uL (1-3.4); LYMPHOCYTES % (AUTO) 21 % (22-44); MD NO; MEAN CORPUSCULAR HGB CONC 33.7 g/dL (33.2-36.2); MEAN CORPUSCULAR VOLUME 92.1 fL (81-97); MONOCYTES # (AUTO) 0.56 x10^3/uL (0.2-0.8); MONOCYTES % (AUTO) 9 % (2-9); NEUTROPHILS # (AUTO) 4.35 x10^3/uL (1.8-6.8); NEUTROPHILS % (AUTO) 68 % (42-75); PLATELET COUNT 193 x10^3/uL (130-400); RED CELL DISTRIBUTION WIDTH 14.4 % (9.4-14.8)
[2019-02-02] MEDS ORDERED: MORPHINE SULFATE 4 MG/ML, 1ML ONE (07:47)
[2019-02-02] MEDS ORDERED: ONDANSETRON 2MG/ML, 2ML ONE (07:47)
[2019-02-02 07:49] LABS: CULTURE INDICATED? YES
[2019-02-02 07:53] LABS: ALANINE AMINOTRANSFERASE 34 U/L (12-78); ALBUMIN 3.7 g/dL (3.4-5.0); ANION GAP 6 mmol/L (5-15); CALCIUM 9.3 mg/dL (8.5-10.1); CHLORIDE 105 mmol/L (98-107); CREATININE 0.95 mg/dL (0.7-1.3)
--- NOTE | 2019-02-02 07:54 | NUR ---
PT RETURN FROM RADIOLOGY. PT MEDICATED ORDERED FOR 8 EPIGASTIC PAIN. PT CONT WITH PULSE OX MONITOR AND AUTO BP IN PLACE. NO NEEDS EXPRESSED AT THIS TIME.
[2019-02-02 07:55] LABS: ALKALINE PHOSPHATASE 79 U/L (45-117); BILIRUBIN,TOTAL 0.7 mg/dL (0.2-1.0); TOTAL PROTEIN 7.5 g/dL (6.4-8.2)
--- NOTE | 2019-02-02 08:19 | NUR ---
PAIN DECREASED TO 4/10. NO NEEDS EXPRESSED AT THIS TIME.
--- NOTE | 2019-02-02 08:57 | NUR ---
NO SIG CHANGE IN PT CONDITION NOTED. NO NEEDS EXPRESSED AT THIS TIME. WAITING FOR FURTHER DISPOSITION.
--- NOTE | 2019-02-02 10:11 | NUR ---
IV DC'D WITH CANNULA INTACT. PT THEN AMB TO BR, GAIT STEADY. UPON RETURN TO ROOM, REVIEWED DC INSTRUCTIONS WITH PT, UNDERSTANDING VERBALIZED. PT LEFT AMB, GAIT STEADY.
[2019-02-02 10:12] VITALS: BP 129/83
== END 2019-02-02 10:15 | disposition home or self-care (01) ==
LOC: ED 07:22
DX: N30.01 Acute cystitis with hematuria (principal); R10.13 Epigastric pain; J45.909 Unspecified asthma, uncomplicated; Z87.891 Personal history of nicotine dependence; K21.9 Gastro-esophageal reflux disease without esophagitis; Z72.9 Problem related to lifestyle, unspecified
CPT/HCPCS: 36415; 74022; 80053; 81001; 83690; 85025; 87086; 96374; 96375; 99284; J2405

== ENCOUNTER 2019-02-27 12:07 | Emergency (ER) | payer MEDICARE, MEDICAID ==
[~2019-02-27] VITALS: Ht 172.7 cm; Wt 96.9 kg
[2019-02-27 12:15] VITALS: BP 141/93
[2019-02-27 12:49] LABS: BASOPHILS # (AUTO) 0.06 x10^3/uL (0-0.1); BASOPHILS % (AUTO) 1 % (0-1); EOSINOPHILS # (AUTO) 0.13 x10^3/uL (0-0.4); EOSINOPHILS % (AUTO) 2 % (1-7); LYMPHOCYTES # (AUTO) 1.98 x10^3/uL (1-3.4); LYMPHOCYTES % (AUTO) 26 % (22-44); MD NO; MEAN CORPUSCULAR HEMOGLOBIN 31.4 pg (27.5-34.5); MEAN CORPUSCULAR HGB CONC 33.4 g/dL (33.2-36.2); MEAN CORPUSCULAR VOLUME 94.1 fL (81-97); MEAN PLATELET VOLUME 7.8 fL (7.4-10.4); MONOCYTES # (AUTO) 0.74 x10^3/uL (0.2-0.8); MONOCYTES % (AUTO) 10 % (2-9); NEUTROPHILS # (AUTO) 4.65 x10^3/uL (1.8-6.8); NEUTROPHILS % (AUTO) 62 % (42-75); PLATELET COUNT 212 x10^3/uL (130-400); RED BLOOD COUNT 5.39 x10^6/uL (4.38-5.82); RED CELL DISTRIBUTION WIDTH 14.5 % (9.4-14.8)
[2019-02-27 12:54] LABS: ANION GAP 6 mmol/L (5-15); CALCIUM 9.3 mg/dL (8.5-10.1); CHLORIDE 109 mmol/L (98-107)
[2019-02-27 12:59] LABS: ALANINE AMINOTRANSFERASE 35 U/L (12-78); ALKALINE PHOSPHATASE 87 U/L (45-117); BILIRUBIN,TOTAL 0.3 mg/dL (0.2-1.0); CREATININE 1.09 mg/dL (0.7-1.3); TOTAL PROTEIN 7.7 g/dL (6.4-8.2)
== END 2019-02-27 12:58 | disposition left against medical advice (07) ==
LOC: ED 12:52
DX: R10.9 Unspecified abdominal pain (principal); R42 Dizziness and giddiness; R19.7 Diarrhea, unspecified
CPT/HCPCS: 36415; 80053; 83690; 85025; 93005; 99284

== ENCOUNTER 2019-03-02 11:44 | Emergency (ER) | payer MEDICARE, MEDICAID ==
[~2019-03-02] VITALS: Ht 172.7 cm; Wt 97.8 kg
[2019-03-02 12:15] LABS: BASOPHILS # (AUTO) 0.03 x10^3/uL (0-0.1); BASOPHILS % (AUTO) 0 % (0-1); EOSINOPHILS # (AUTO) 0.09 x10^3/uL (0-0.4); EOSINOPHILS % (AUTO) 1 % (1-7); LYMPHOCYTES # (AUTO) 1.71 x10^3/uL (1-3.4); LYMPHOCYTES % (AUTO) 21 % (22-44); MD NO; MEAN CORPUSCULAR HEMOGLOBIN 31.2 pg (27.5-34.5); MEAN CORPUSCULAR HGB CONC 33.4 g/dL (33.2-36.2); MEAN CORPUSCULAR VOLUME 93.4 fL (81-97); MONOCYTES # (AUTO) 0.77 x10^3/uL (0.2-0.8); MONOCYTES % (AUTO) 9 % (2-9); NEUTROPHILS # (AUTO) 5.61 x10^3/uL (1.8-6.8); NEUTROPHILS % (AUTO) 68 % (42-75); PLATELET COUNT 194 x10^3/uL (130-400); RED BLOOD COUNT 5.36 x10^6/uL (4.38-5.82); RED CELL DISTRIBUTION WIDTH 14.3 % (9.4-14.8)
[2019-03-02 12:26] LABS: CHLORIDE 109 mmol/L (98-107)
[2019-03-02 12:38] LABS: ALANINE AMINOTRANSFERASE 37 U/L (12-78); ALBUMIN 3.9 g/dL (3.4-5.0); ALKALINE PHOSPHATASE 84 U/L (45-117); ANION GAP 7 mmol/L (5-15); BILIRUBIN,TOTAL 0.6 mg/dL (0.2-1.0); CREATININE 0.98 mg/dL (0.7-1.3); TOTAL PROTEIN 7.7 g/dL (6.4-8.2); TROPONIN I < 0.015 ng/mL (0.000-0.045)
[2019-03-02 13:34] VITALS: BP 136/93
== END 2019-03-02 14:00 | disposition home or self-care (01) ==
LOC: ED 13:54
DX: S53.449A Ulnar collateral ligament sprain of unspecified elbow, initial encounter (principal); R42 Dizziness and giddiness; R55 Syncope and collapse; I10 Essential (primary) hypertension; E11.9 Type 2 diabetes mellitus without complications; Z87.891 Personal history of nicotine dependence; W19.XXXA Unspecified fall, initial encounter; Y93.89 Activity, other specified; Y92.89 Other specified places as the place of occurrence of the external cause; Y99.8 Other external cause status
CPT/HCPCS: 29125; 36415; 71046; 80053; 84484; 85025; 93005; 99284

== ENCOUNTER 2019-05-04 08:44 | Emergency (ER) | payer MEDICARE, MEDICAID ==
[~2019-05-04] VITALS: Ht 172.7 cm; Wt 96.9 kg
--- NOTE | 2019-05-04 08:55 | NUR ---
PATIENT TAKEN TO ROOM 36 VIA WHEELCHAIR AND PLACED ON ISO FOR DIARRHEA BY EMT.
--- NOTE | 2019-05-04 09:10 | NUR ---
ASSUMED CARE OF PT AT THIS TIME. TO ROOM VIA WHEELCHAIR, ABLE TO STAND AND TRANSFER SELF TO [facility] WITHOUT DIFFICULTY. DR. BRANNON AT BEDSIDE FOR EVALUATION. 53 Y/O M REPORTS "DIARRHEA STARTED 32 HOURS WITH STOMACH PAIN, ACHY, LIKE 9.5/10 PAIN. NO NAUSEA OR VOMITING THOUGH BUT I AM HAVING MORE FREQUENT PEEING AND IT'S PAINFUL." DENIES ANY RECENT ILLNESS, ANTIBIOTIC USE, "MAYBE COULD HAVE BEEN SOMETHING I ATE NOT SURE, I'VE HAD C-DIFF BEFORE BUT THIS SEEMS DIFFERENT." ISOLATION PRECAUTIONS IN PLACE FOR DIARRHEA. ABD SOFT, TENDER TO PALPATION IN ALL QUADRANTS. BOWEL SOUNDS ACTIVE. DENIES CP, SOB, CHRISTENSEN, DIZZINESS. CONT PULSE OX, BP MONITORS APPLIED. VSS. CALL LIGHT IN REACH. FALL PRECAUTIONS IN PLACE. SIDE RAILS UPX2. A&OX4.
[2019-05-04 09:30] LABS: BASOPHILS % (AUTO) 0 % (0-1); EOSINOPHILS # (AUTO) 0.05 x10^3/uL (0-0.4); EOSINOPHILS % (AUTO) 1 % (1-7); LYMPHOCYTES # (AUTO) 1.24 x10^3/uL (1-3.4); LYMPHOCYTES % (AUTO) 21 % (22-44); MD NO; MEAN CORPUSCULAR HEMOGLOBIN 31.1 pg (27.5-34.5); MEAN CORPUSCULAR VOLUME 94.4 fL (81-97); MEAN PLATELET VOLUME 7.4 fL (7.4-10.4); MONOCYTES # (AUTO) 0.59 x10^3/uL (0.2-0.8); MONOCYTES % (AUTO) 10 % (2-9); NEUTROPHILS # (AUTO) 3.95 x10^3/uL (1.8-6.8); NEUTROPHILS % (AUTO) 68 % (42-75); PLATELET COUNT 194 x10^3/uL (130-400); RED BLOOD COUNT 5.04 x10^6/uL (4.38-5.82); RED CELL DISTRIBUTION WIDTH 14.4 % (9.4-14.8)
--- NOTE | 2019-05-04 09:31 | NUR ---
LAB AT BEDSIDE. DENIES URGE TO URINATE, AWARE UA SAMPLE IS NEEDED. DISCUSSED PAIN WITH PT AND DR. BRANNON, NO ORDERS RECEIVED FOR PAIN AT THIS TIME, PT UPDATED ON POC, VERBALIZED UNDERSTANDING, AGREES WITH POC. RESTING IN POSITION OF COMFORT. VSS. CALL LIGHT IN REACH
--- NOTE | 2019-05-04 09:40 | NUR ---
BEDSIDE REPORT AND CARE TO CARIE CAMPO AT THIS TIME
[2019-05-04 09:44] LABS: ALANINE AMINOTRANSFERASE 38 U/L (12-78); ALBUMIN 3.8 g/dL (3.4-5.0); ANION GAP 6 mmol/L (5-15); CALCIUM 9.1 mg/dL (8.5-10.1); CHLORIDE 109 mmol/L (98-107); CREATININE 1.19 mg/dL (0.7-1.3)
[2019-05-04 09:46] LABS: ALKALINE PHOSPHATASE 73 U/L (45-117); TOTAL PROTEIN 7.4 g/dL (6.4-8.2)
--- NOTE | 2019-05-04 10:00 | NUR ---
PHU RN ASSISTING PRIMARY JAHAIRA DARNELL. PT AMBULATED TO RESTROOM WITH STEADY GAIT FOR UA SAMPLE. COLLECTED AND SENT TO LAB AT THIS TIME. VSS. RESTING IN POSITION OF COMFORT. REPORT AND CARE TO PRIMARY JAHAIRA DARNELL.
[2019-05-04 10:13] LABS: MICROSCOPIC AUTO
[2019-05-04 10:15] LABS: CULTURE INDICATED? YES
[2019-05-04 10:32] VITALS: BP 136/82
== END 2019-05-04 11:00 | disposition home or self-care (01) ==
LOC: ED 09:18
DX: N30.00 Acute cystitis without hematuria (principal); J44.9 Chronic obstructive pulmonary disease, unspecified; R10.32 Left lower quadrant pain; E11.9 Type 2 diabetes mellitus without complications; K21.9 Gastro-esophageal reflux disease without esophagitis; Z87.891 Personal history of nicotine dependence; Z90.49 Acquired absence of other specified parts of digestive tract
CPT/HCPCS: 36415; 80053; 81001; 83690; 85025; 87086; 99283

== ENCOUNTER 2019-05-15 11:57 | Emergency (ER) | payer MEDICARE, MEDICAID ==
[~2019-05-15] VITALS: Ht 172.7 cm; Wt 95.0 kg
--- NOTE | 2019-05-15 12:02 | NUR ---
PATIENT WAS FOUND ON A TOILET IN R WITH DIARREA AND DIZZYNESS. PATIENT REPORTS TWO DAYS OF DIARREA. PATIENT HAS HAD DIARREA IN THE PAST. PATIENT HAS A HISTORY OF CDIFF TEN YEARS AGO. HE HAS DIABETES. AOX4. CHRISTOPHER.
--- NOTE | 2019-05-15 12:20 | NUR ---
ISO DIARREA RO CDIFF
[2019-05-15 12:25] LABS: BASOPHILS # (AUTO) 0.05 x10^3/uL (0-0.1); BASOPHILS % (AUTO) 1 % (0-1); EOSINOPHILS # (AUTO) 0.07 x10^3/uL (0-0.4); EOSINOPHILS % (AUTO) 1 % (1-7); LYMPHOCYTES # (AUTO) 1.27 x10^3/uL (1-3.4); LYMPHOCYTES % (AUTO) 17 % (22-44); MD NO; MEAN CORPUSCULAR HEMOGLOBIN 31.6 pg (27.5-34.5); MEAN CORPUSCULAR HGB CONC 33.3 g/dL (33.2-36.2); MEAN PLATELET VOLUME 7.8 fL (7.4-10.4); MONOCYTES # (AUTO) 0.72 x10^3/uL (0.2-0.8); MONOCYTES % (AUTO) 10 % (2-9); NEUTROPHILS # (AUTO) 5.34 x10^3/uL (1.8-6.8); NEUTROPHILS % (AUTO) 72 % (42-75); PLATELET COUNT 205 x10^3/uL (130-400); RED CELL DISTRIBUTION WIDTH 14.1 % (9.4-14.8)
--- NOTE | 2019-05-15 12:27 | NUR ---
got patient a bedside commode and urinal. requested urine for lab tests. patient unable to void stool or urine at this time. will monitor.
[2019-05-15] MEDS ORDERED: DICYCLOMINE 20 MG TABLET PO ONE (12:30)
[2019-05-15] MEDS ORDERED: FAMOTIDINE 20 MG TABLET PO ONE (12:30)
[2019-05-15] MEDS ORDERED: ONDANSETRON ODT 4 MG PO ONE (12:30)
[2019-05-15 12:36] LABS: ALANINE AMINOTRANSFERASE 42 U/L (12-78); ALBUMIN 3.7 g/dL (3.4-5.0); ANION GAP 6 mmol/L (5-15); CALCIUM 8.5 mg/dL (8.5-10.1); CHLORIDE 110 mmol/L (98-107)
[2019-05-15 12:39] LABS: ALKALINE PHOSPHATASE 79 U/L (45-117); BILIRUBIN,TOTAL 0.7 mg/dL (0.2-1.0); CREATININE 1.14 mg/dL (0.7-1.3); TOTAL PROTEIN 7.4 g/dL (6.4-8.2)
--- NOTE | 2019-05-15 13:13 | NUR ---
patient able to void about 25 ml urine, dark concentrated. sent to lab. patient unable to provide stool sample.
[2019-05-15 13:40] LABS: MICROSCOPIC INDICATED
[2019-05-15 13:41] LABS: CULTURE INDICATED? YES
[2019-05-15 13:51] VITALS: BP 132/78
[2019-05-15] MEDS ORDERED: FAMOTIDINE 20 MG TABLET ONE (13:57)
[2019-05-15] MEDS ORDERED: ONDANSETRON ODT 4 MG ONE (13:57)
[2019-05-15] MEDS ORDERED: DICYCLOMINE 10 MG CAPSULE ONE (13:57)
== END 2019-05-15 14:51 ==
LOC: ED 14:21
DX: R19.7 Diarrhea, unspecified (principal); R10.84 Generalized abdominal pain; K21.9 Gastro-esophageal reflux disease without esophagitis; J45.909 Unspecified asthma, uncomplicated; I11.9 Hypertensive heart disease without heart failure; E11.9 Type 2 diabetes mellitus without complications; J44.9 Chronic obstructive pulmonary disease, unspecified; Z90.89 Acquired absence of other organs; Z90.49 Acquired absence of other specified parts of digestive tract; Z87.891 Personal history of nicotine dependence
CPT/HCPCS: 36415; 76700; 80053; 81001; 83690; 85025; 87086; 99284; Q0162

== ENCOUNTER 2019-08-19 10:48 | Emergency (ER) | payer MEDICARE, MEDICAID ==
[~2019-08-19] VITALS: Ht 172.7 cm; Wt 95.0 kg
[~2019-08-19 10:48] MED LIST changes: -ALBU6.7H INH; +ALBU6.7H8 INH; +FLUT1BLS3 IH; +LISI1TAB19 PO; -LISI1TAB5 PO
--- NOTE | 2019-08-19 11:08 | NUR ---
ambulated to bathroom with use of cane
--- NOTE | 2019-08-19 11:20 | NUR ---
TO XRAY VIA W/C
[2019-08-19 11:29] LABS: MICROSCOPIC AUTO
[2019-08-19 11:30] LABS: CULTURE INDICATED? YES
[2019-08-19 11:46] LABS: BASOPHILS # (AUTO) 0.02 x10^3/uL (0-0.1); BASOPHILS % (AUTO) 0 % (0-1); EOSINOPHILS # (AUTO) 0.11 x10^3/uL (0-0.4); EOSINOPHILS % (AUTO) 2 % (1-7); LYMPHOCYTES # (AUTO) 1.75 x10^3/uL (1-3.4); LYMPHOCYTES % (AUTO) 27 % (22-44); MD NO; MEAN CORPUSCULAR HEMOGLOBIN 31.7 pg (27.5-34.5); MEAN CORPUSCULAR VOLUME 96.1 fL (81-97); MEAN PLATELET VOLUME 7.8 fL (7.4-10.4); MONOCYTES # (AUTO) 0.71 x10^3/uL (0.2-0.8); MONOCYTES % (AUTO) 11 % (2-9); NEUTROPHILS # (AUTO) 3.97 x10^3/uL (1.8-6.8); NEUTROPHILS % (AUTO) 61 % (42-75); PLATELET COUNT 208 x10^3/uL (130-400); RED BLOOD COUNT 5.07 x10^6/uL (4.38-5.82); RED CELL DISTRIBUTION WIDTH 13.8 % (9.4-14.8)
[2019-08-19 11:53] LABS: ALANINE AMINOTRANSFERASE 36 U/L (12-78); ALBUMIN 3.8 g/dL (3.4-5.0); ANION GAP 5 mmol/L (5-15); CALCIUM 8.6 mg/dL (8.5-10.1); CHLORIDE 109 mmol/L (98-107); CREATININE 1.06 mg/dL (0.7-1.3)
[2019-08-19 11:55] LABS: ALKALINE PHOSPHATASE 81 U/L (45-117); BILIRUBIN,TOTAL 0.7 mg/dL (0.2-1.0); TOTAL PROTEIN 7.3 g/dL (6.4-8.2)
[2019-08-19 12:41] VITALS: BP 142/86
== END 2019-08-19 12:44 | disposition home or self-care (01) ==
LOC: ED 11:04
DX: R10.12 Left upper quadrant pain (principal); R11.0 Nausea; I10 Essential (primary) hypertension; E11.9 Type 2 diabetes mellitus without complications; Z87.891 Personal history of nicotine dependence
CPT/HCPCS: 36415; 74021; 80053; 81001; 83690; 85025; 87086; 99284

== ENCOUNTER 2019-08-27 01:29 | Emergency (ER) | payer MEDICARE, MEDICAID ==
[~2019-08-27] VITALS: Ht 172.7 cm; Wt 97.5 kg
[~2019-08-27 01:29] MED LIST changes: +ACET500T64 PO; -ACET500T71 PO
[2019-08-27 01:32] VITALS: BP 129/89
[2019-08-27] MEDS ORDERED: DIPH,PERTUSS(ACELL),TET VAC/PF 0.5 ML IM-VACC ONE ×2 (01:47→02:00)
== END 2019-08-27 01:59 | disposition home or self-care (01) ==
LOC: ED 01:44
DX: S60.411A Abrasion of left index finger, initial encounter (principal); W26.0XXA Contact with knife, initial encounter; Y93.89 Activity, other specified; Y92.009 Unspecified place in unspecified non-institutional (private) residence as the place of occurrence of the external cause; Y99.8 Other external cause status
CPT/HCPCS: 90471; 90715

== ENCOUNTER 2019-08-31 08:15 | Emergency (ER) | payer MEDICARE, MEDICAID ==
[~2019-08-31] VITALS: Ht 172.7 cm; Wt 97.7 kg
--- NOTE | 2019-08-31 08:27 | NUR ---
DIRECTOR MULTIMEDIA: PT TO ROOM FROM LOBBY
--- NOTE | 2019-08-31 08:38 | NUR ---
PT HERE TODAY STATING HE IS URINATING BLOOD AND HAS BEEN FOR 3 DAYS WELL ABDOMINAL PAIN. STATES HE WAS SEEN IN ER ONE WEEK AGO FOR BACK PAIN AFTER FALLING OFF LADDER. WAS PRESCRIBED ROBAXIN AND FEELS HIS SYMPTOMS ARE DUE TO THIS MEDICATIONS. PT RESTING ON [employer] PLAYING ON HIS PHONE. NADN. VSS. COSBY WAS AT BEDSIDE TO ASSESS PT. PT HAS PROVIDED A URINE SAMPLE THAT HAS NOW BEEN COLLECTED. PT DENIES NEEDS. CALL LIGHT IN REACH.
[2019-08-31 08:54] LABS: MICROSCOPIC AUTO
--- NOTE | 2019-08-31 08:56 | NUR ---
PT TO RADIOLOGY NOW.
[2019-08-31 08:59] LABS: CULTURE INDICATED? YES
--- NOTE | 2019-08-31 09:18 | NUR ---
LAB FINISHED COLLECTED BLOOD AT BEDSIDE.
[2019-08-31 09:25] LABS: BASOPHILS # (AUTO) 0.05 x10^3/uL (0-0.1); BASOPHILS % (AUTO) 1 % (0-1); EOSINOPHILS % (AUTO) 0 % (1-7); LYMPHOCYTES # (AUTO) 1.34 x10^3/uL (1-3.4); LYMPHOCYTES % (AUTO) 12 % (22-44); MD NO; MEAN CORPUSCULAR HEMOGLOBIN 31.8 pg (27.5-34.5); MEAN CORPUSCULAR HGB CONC 32.8 g/dL (33.2-36.2); MEAN CORPUSCULAR VOLUME 96.9 fL (81-97); MEAN PLATELET VOLUME 7.7 fL (7.4-10.4); MONOCYTES # (AUTO) 0.78 x10^3/uL (0.2-0.8); MONOCYTES % (AUTO) 7 % (2-9); NEUTROPHILS # (AUTO) 9.17 x10^3/uL (1.8-6.8); NEUTROPHILS % (AUTO) 81 % (42-75); PLATELET COUNT 207 x10^3/uL (130-400); RED BLOOD COUNT 5.07 x10^6/uL (4.38-5.82); RED CELL DISTRIBUTION WIDTH 13.9 % (9.4-14.8)
[2019-08-31 09:38] LABS: ALANINE AMINOTRANSFERASE 35 U/L (12-78); ALBUMIN 3.8 g/dL (3.4-5.0); ANION GAP 5 mmol/L (5-15); CALCIUM 8.5 mg/dL (8.5-10.1); CHLORIDE 107 mmol/L (98-107); CREATININE 1.13 mg/dL (0.7-1.3)
[2019-08-31 09:39] LABS: ALKALINE PHOSPHATASE 90 U/L (45-117); BILIRUBIN,TOTAL 0.5 mg/dL (0.2-1.0); TOTAL PROTEIN 7.6 g/dL (6.4-8.2)
[2019-08-31] MEDS ORDERED: SODIUM CHLORIDE 0.9% 1,000ML IVBOLUS ONE (10:00)
--- NOTE | 2019-08-31 10:00 | NUR ---
PT RESTING ON [place] PLAYING ON PHONE. NADN. VSS. DENIES NEEDS. CALL LIGHT IN REACH. AWARE OF POC.
[2019-08-31] MEDS ORDERED: CEFTRIAXONE PMX 1GM/50ML 50 ML ONE (10:15)
[2019-08-31] MEDS ORDERED: CEFTRIAXONE PMX 1GM/50ML 50 ML IVPB ONE (10:30)
--- NOTE | 2019-08-31 10:32 | NUR ---
PIV STARTED. PT MEDICATED PER EMAR. RESTING ON GURNEY. NADN. AWARE OF POC.
[2019-08-31 11:14] VITALS: BP 138/85
--- NOTE | 2019-08-31 11:17 | NUR ---
TASK RN: Patient/Caregiver given discharge instructions and they have confirmed that they understand the instructions. Patient ambulatory with steady gait.
== END 2019-08-31 11:18 | disposition home or self-care (01) ==
LOC: ED 08:57
DX: K85.00 Idiopathic acute pancreatitis without necrosis or infection (principal); N30.01 Acute cystitis with hematuria; R74.8 Abnormal levels of other serum enzymes; K21.9 Gastro-esophageal reflux disease without esophagitis; F41.1 Generalized anxiety disorder; G43.909 Migraine, unspecified, not intractable, without status migrainosus; J44.9 Chronic obstructive pulmonary disease, unspecified; E11.9 Type 2 diabetes mellitus without complications; I10 Essential (primary) hypertension
CPT/HCPCS: 36415; 74018; 74176; 80053; 81001; 83690; 85025; 87086; 96365; 99284; J0696; J7030

== ENCOUNTER 2019-09-11 09:10 | Emergency (ER) | payer MEDICARE, MEDICAID ==
[~2019-09-11] VITALS: Ht 172.7 cm; Wt 99.0 kg
[2019-09-11 10:05] LABS: BASOPHILS # (AUTO) 0.03 x10^3/uL (0-0.1); BASOPHILS % (AUTO) 0 % (0-1); EOSINOPHILS # (AUTO) 0.21 x10^3/uL (0-0.4); EOSINOPHILS % (AUTO) 2 % (1-7); LYMPHOCYTES # (AUTO) 1.81 x10^3/uL (1-3.4); LYMPHOCYTES % (AUTO) 17 % (22-44); MD NO; MEAN CORPUSCULAR HEMOGLOBIN 32.4 pg (27.5-34.5); MEAN CORPUSCULAR HGB CONC 33.2 g/dL (33.2-36.2); MEAN CORPUSCULAR VOLUME 97.6 fL (81-97); MEAN PLATELET VOLUME 7.9 fL (7.4-10.4); MONOCYTES # (AUTO) 0.78 x10^3/uL (0.2-0.8); MONOCYTES % (AUTO) 8 % (2-9); NEUTROPHILS # (AUTO) 7.58 x10^3/uL (1.8-6.8); NEUTROPHILS % (AUTO) 73 % (42-75); PLATELET COUNT 186 x10^3/uL (130-400); RED BLOOD COUNT 5.12 x10^6/uL (4.38-5.82); RED CELL DISTRIBUTION WIDTH 14.1 % (9.4-14.8)
[2019-09-11 10:14] LABS: ALANINE AMINOTRANSFERASE 57 U/L (12-78); ALBUMIN 3.6 g/dL (3.4-5.0); ANION GAP 4 mmol/L (5-15); CALCIUM 8.6 mg/dL (8.5-10.1); CHLORIDE 109 mmol/L (98-107); CREATININE 1.16 mg/dL (0.7-1.3)
[2019-09-11 10:16] LABS: ALKALINE PHOSPHATASE 87 U/L (45-117); BILIRUBIN,TOTAL 0.8 mg/dL (0.2-1.0); TOTAL PROTEIN 7.3 g/dL (6.4-8.2)
--- NOTE | 2019-09-11 10:50 | NUR ---
AMBULATORY TO RESTROOM C STEADY GAIT.
[2019-09-11 11:46] LABS: CULTURE INDICATED? YES; MICROSCOPIC INDICATED
--- NOTE | 2019-09-11 11:46 | NUR ---
PT SLEEPING ON CART. NAD. RR EVEN NON LABORED. WILL CTM.
[2019-09-11 12:04] VITALS: BP 144/92
--- NOTE | 2019-09-11 12:06 | NUR ---
REPORT FROM JAHAIRA MCCLENDON. PT SITTING RECLINED IN BED, ASLEEP UPON RN ENTRY TO ROOM. NAD NOTED AT THIS TIME. NO WOB NOTED. PT AWAKENS EASILY, REPORTS "A LITTLE BIT" OF PAIN, IMPROVED SINCE ARRIVING. SIDE RAIL UP, CALL LIGHT IN REACH.
--- NOTE | 2019-09-11 12:35 | NUR ---
Patient/Caregiver given discharge instructions and they have confirmed that they understand the instructions. Patient ambulatory with steady gait.
== END 2019-09-11 12:45 | disposition home or self-care (01) ==
LOC: ED 12:30
DX: R10.31 Right lower quadrant pain (principal); R10.32 Left lower quadrant pain; I11.0 Hypertensive heart disease with heart failure; E11.9 Type 2 diabetes mellitus without complications; J44.9 Chronic obstructive pulmonary disease, unspecified; G89.29 Other chronic pain; Z72.89 Other problems related to lifestyle
CPT/HCPCS: 36415; 80053; 81001; 83690; 85025; 87086; 93005; 99284

== ENCOUNTER 2019-09-15 19:30 | Emergency (ER) | payer MEDICARE, MEDICAID ==
[~2019-09-15] VITALS: Ht 157.5 cm; Wt 100.0 kg
[2019-09-15 19:45] VITALS: BP 135/88
--- NOTE | 2019-09-15 19:48 | NUR ---
SITTING ON A CHAIR WITHIN ARMS LENGTH. AWAITING ROOM
--- NOTE | 2019-09-15 20:06 | NUR ---
PT TO ROOM AWAITING ERP AND ORDERS
== END 2019-09-15 21:51 | disposition home or self-care (01) ==
LOC: ED 21:45
DX: T38.3X1A Poisoning by insulin and oral hypoglycemic [antidiabetic] drugs, accidental (unintentional), initial encounter (principal); T47.1X1A Poisoning by other antacids and anti-gastric-secretion drugs, accidental (unintentional), initial encounter; F41.1 Generalized anxiety disorder; E11.9 Type 2 diabetes mellitus without complications; J45.909 Unspecified asthma, uncomplicated; K21.9 Gastro-esophageal reflux disease without esophagitis; I11.9 Hypertensive heart disease without heart failure; G89.29 Other chronic pain; Z90.89 Acquired absence of other organs; Z90.49 Acquired absence of other specified parts of digestive tract; Z87.891 Personal history of nicotine dependence
CPT/HCPCS: 93005; 99283

== ENCOUNTER 2019-10-08 08:12 | Emergency (ER) | payer MEDICARE, MEDICAID ==
[2019-10-08 08:35] LABS: BASOPHILS # (AUTO) 0.02 x10^3/uL (0-0.1); BASOPHILS % (AUTO) 0 % (0-1); EOSINOPHILS % (AUTO) 1 % (1-7); LYMPHOCYTES # (AUTO) 1.33 x10^3/uL (1-3.4); LYMPHOCYTES % (AUTO) 17 % (22-44); MD NO; MEAN CORPUSCULAR HEMOGLOBIN 31.5 pg (27.5-34.5); MEAN CORPUSCULAR HGB CONC 32.8 g/dL (33.2-36.2); MEAN PLATELET VOLUME 7.3 fL (7.4-10.4); MONOCYTES # (AUTO) 0.54 x10^3/uL (0.2-0.8); MONOCYTES % (AUTO) 7 % (2-9); NEUTROPHILS # (AUTO) 5.73 x10^3/uL (1.8-6.8); NEUTROPHILS % (AUTO) 74 % (42-75); PLATELET COUNT 191 x10^3/uL (130-400); RED BLOOD COUNT 4.95 x10^6/uL (4.38-5.82); RED CELL DISTRIBUTION WIDTH 14.2 % (9.4-14.8)
[2019-10-08 08:46] LABS: ANION GAP 5 mmol/L (5-15); CALCIUM 8.7 mg/dL (8.5-10.1); CHLORIDE 109 mmol/L (98-107); CREATININE 0.95 mg/dL (0.7-1.3)
[2019-10-08 09:22] VITALS: BP 159/99
--- NOTE | 2019-10-08 09:23 | NUR ---
PT RESTING IN [facility], ALL LABS AND RAD WNL. PT UP FOR RECHECK BY . CALL LIGHT WITHIN REACH.
== END 2019-10-08 09:45 | disposition home or self-care (01) ==
LOC: ED 08:46
DX: R06.00 Dyspnea, unspecified (principal); R05 Cough; E11.9 Type 2 diabetes mellitus without complications; K21.9 Gastro-esophageal reflux disease without esophagitis; I11.9 Hypertensive heart disease without heart failure; Z72.89 Other problems related to lifestyle; Z87.891 Personal history of nicotine dependence; Z90.89 Acquired absence of other organs; Z90.49 Acquired absence of other specified parts of digestive tract
CPT/HCPCS: 36415; 71046; 80048; 83880; 85025; 93005; 99284

== ENCOUNTER 2019-10-11 19:51 | Emergency (ER) | payer MEDICARE, MEDICAID ==
[~2019-10-11] VITALS: Ht 172.7 cm; Wt 92.7 kg
[2019-10-11 19:54] VITALS: BP 129/81
[2019-10-11] MEDS ORDERED: KETOROLAC 30 MG/1 ML IM ONE (20:30)
[2019-10-11] MEDS ORDERED: DIAZEPAM 5 MG TABLET PO ONE (20:30)
[2019-10-11] MEDS ORDERED: KETOROLAC 30 MG/1 ML ONE (20:34)
[2019-10-11] MEDS ORDERED: DIAZEPAM 5 MG TABLET ONE (20:34)
--- NOTE | 2019-10-11 21:04 | NUR ---
PT REPORTS IMPROVEMENT IN PAIN WITH MEDICATIONS. DC EDUCATION PROVIDED, PT DEMONSTRATES UNDERSTANDING. PT AMBULATED STEADILY TO DC WITH RN. FAMILY TO TRANSPORT PT HOME.
== END 2019-10-11 21:06 | disposition home or self-care (01) ==
LOC: ED 21:00
DX: S39.012A Strain of muscle, fascia and tendon of lower back, initial encounter (principal); J44.9 Chronic obstructive pulmonary disease, unspecified; E11.9 Type 2 diabetes mellitus without complications; K21.9 Gastro-esophageal reflux disease without esophagitis; G47.33 Obstructive sleep apnea (adult) (pediatric); G43.909 Migraine, unspecified, not intractable, without status migrainosus; I10 Essential (primary) hypertension; Z90.49 Acquired absence of other specified parts of digestive tract; Z87.891 Personal history of nicotine dependence; W06.XXXA Fall from bed, initial encounter; Y93.89 Activity, other specified; Y92.89 Other specified places as the place of occurrence of the external cause; Y99.8 Other external cause status
CPT/HCPCS: 72110; 96372; 99283; J1885

== ENCOUNTER 2019-10-22 20:31 | Emergency (ER) | payer MEDICARE, MEDICAID ==
[~2019-10-22] VITALS: Ht 172.7 cm; Wt 92.0 kg
[2019-10-22 20:33] VITALS: BP 138/86
[2019-10-22] MEDS ORDERED: PROMETHAZINE 25 MG/ML, 1ML IM ONE (21:00)
[2019-10-22] MEDS ORDERED: PROMETHAZINE 25 MG/ML, 1ML ONE (21:01)
[2019-10-22 21:13] LABS: BASOPHILS # (AUTO) 0.04 x10^3/uL (0-0.1); BASOPHILS % (AUTO) 1 % (0-1); EOSINOPHILS # (AUTO) 0.14 x10^3/uL (0-0.4); EOSINOPHILS % (AUTO) 2 % (1-7); LYMPHOCYTES # (AUTO) 1.76 x10^3/uL (1-3.4); LYMPHOCYTES % (AUTO) 24 % (22-44); MD NO; MEAN CORPUSCULAR HEMOGLOBIN 31.6 pg (27.5-34.5); MEAN CORPUSCULAR VOLUME 95.9 fL (81-97); MEAN PLATELET VOLUME 8.1 fL (7.4-10.4); MONOCYTES # (AUTO) 0.69 x10^3/uL (0.2-0.8); MONOCYTES % (AUTO) 10 % (2-9); NEUTROPHILS # (AUTO) 4.58 x10^3/uL (1.8-6.8); NEUTROPHILS % (AUTO) 64 % (42-75); PLATELET COUNT 215 x10^3/uL (130-400); RED BLOOD COUNT 4.99 x10^6/uL (4.38-5.82); RED CELL DISTRIBUTION WIDTH 14.3 % (9.4-14.8)
[2019-10-22 21:20] LABS: ALANINE AMINOTRANSFERASE 43 U/L (12-78); ALBUMIN 3.5 g/dL (3.4-5.0); ANION GAP 4 mmol/L (5-15); CALCIUM 8.4 mg/dL (8.5-10.1); CHLORIDE 110 mmol/L (98-107); CREATININE 1.25 mg/dL (0.7-1.3)
[2019-10-22 21:20] LABS: MICROSCOPIC AUTO
[2019-10-22 21:22] LABS: ALKALINE PHOSPHATASE 82 U/L (45-117); BILIRUBIN,TOTAL 0.5 mg/dL (0.2-1.0); TOTAL PROTEIN 7.4 g/dL (6.4-8.2)
[2019-10-22 21:22] LABS: CULTURE INDICATED? NO
== END 2019-10-22 22:07 | disposition home or self-care (01) ==
LOC: ED 20:57
DX: R10.32 Left lower quadrant pain (principal); R11.0 Nausea; I10 Essential (primary) hypertension; E11.9 Type 2 diabetes mellitus without complications; J44.9 Chronic obstructive pulmonary disease, unspecified; Z90.89 Acquired absence of other organs; Z90.49 Acquired absence of other specified parts of digestive tract; Z87.891 Personal history of nicotine dependence
CPT/HCPCS: 36415; 80053; 81001; 83690; 85025; 96372; 99283; J2550

== ENCOUNTER 2019-11-05 19:11 | Emergency (ER) | payer MEDICARE, MEDICAID ==
[~2019-11-05] VITALS: Ht 172.7 cm; Wt 92.0 kg
[2019-11-05 19:15] VITALS: BP 136/88
== END 2019-11-05 20:21 | disposition home or self-care (01) ==
LOC: ED 20:07
DX: S93.401A Sprain of unspecified ligament of right ankle, initial encounter (principal); K21.9 Gastro-esophageal reflux disease without esophagitis; J44.0 Chronic obstructive pulmonary disease with (acute) lower respiratory infection; I10 Essential (primary) hypertension; F17.200 Nicotine dependence, unspecified, uncomplicated; X58.XXXA Exposure to other specified factors, initial encounter; Y93.89 Activity, other specified; Y92.098 Other place in other non-institutional residence as the place of occurrence of the external cause; Y99.8 Other external cause status
CPT/HCPCS: 99283

== ENCOUNTER 2019-11-08 13:52 | Emergency (ER) | payer MEDICARE, MEDICAID ==
[~2019-11-08] VITALS: Ht 172.7 cm; Wt 93.5 kg
[2019-11-08 16:05] LABS: BASOPHILS # (AUTO) 0.03 x10^3/uL (0-0.1); BASOPHILS % (AUTO) 0 % (0-1); EOSINOPHILS # (AUTO) 0.11 x10^3/uL (0-0.4); EOSINOPHILS % (AUTO) 1 % (1-7); LYMPHOCYTES # (AUTO) 1.95 x10^3/uL (1-3.4); LYMPHOCYTES % (AUTO) 25 % (22-44); MD NO; MEAN CORPUSCULAR HEMOGLOBIN 31.4 pg (27.5-34.5); MEAN CORPUSCULAR HGB CONC 32.8 g/dL (33.2-36.2); MEAN CORPUSCULAR VOLUME 95.8 fL (81-97); MEAN PLATELET VOLUME 8.1 fL (7.4-10.4); MONOCYTES # (AUTO) 0.94 x10^3/uL (0.2-0.8); MONOCYTES % (AUTO) 12 % (2-9); NEUTROPHILS # (AUTO) 4.82 x10^3/uL (1.8-6.8); NEUTROPHILS % (AUTO) 61 % (42-75); PLATELET COUNT 224 x10^3/uL (130-400); RED BLOOD COUNT 5.28 x10^6/uL (4.38-5.82); RED CELL DISTRIBUTION WIDTH 14.7 % (9.4-14.8)
[2019-11-08 16:15] LABS: ALANINE AMINOTRANSFERASE 48 U/L (12-78); ALBUMIN 3.9 g/dL (3.4-5.0); ANION GAP 5 mmol/L (5-15); CALCIUM 9.1 mg/dL (8.5-10.1); CHLORIDE 107 mmol/L (98-107); CREATININE 0.99 mg/dL (0.7-1.3)
[2019-11-08 16:18] LABS: ALKALINE PHOSPHATASE 91 U/L (45-117); BILIRUBIN,TOTAL 0.4 mg/dL (0.2-1.0); TOTAL PROTEIN 8.2 g/dL (6.4-8.2)
--- NOTE | 2019-11-08 16:40 | NUR ---
AFTER PT AMBULATED TO 18 FROM MD BLANCA EXAMINING PT. PT C/O UPPER ABDOMINAL PAIN AND NAUSEA SINCE WEDNESDAY
[2019-11-08] MEDS ORDERED: ONDANSETRON ODT 4 MG ONE (16:57)
[2019-11-08] MEDS ORDERED: MAALOX/HYOSCYAMINE/LIDOCAINE 45 ML BTL ONE (16:57)
[2019-11-08] MEDS ORDERED: MAALOX/HYOSCYAMINE/LIDOCAINE 45 ML BTL PO ONE (17:00)
[2019-11-08] MEDS ORDERED: ONDANSETRON ODT 4 MG PO ONE (17:00)
[2019-11-08 17:02] LABS: CULTURE INDICATED? NO; MICROSCOPIC NOT IND
--- NOTE | 2019-11-08 17:06 | NUR ---
MEDICATED FOR NAUSEA AND PAIN NOTED ON MAR
--- NOTE | 2019-11-08 17:20 | NUR ---
THIS FLOAT RN AT BEDSIDE TO DC PT FOR PRIMARY RN, NOREEN. PT VERBALIZED UNDERSTANDING TO DC INSTRUCTIONS AMBULATORY TO CHECKOUT C STEADY GAIT. VSS.
[2019-11-08 17:21] VITALS: BP 137/81
== END 2019-11-08 17:24 | disposition home or self-care (01) ==
LOC: ED 17:20
DX: R10.13 Epigastric pain (principal); R19.7 Diarrhea, unspecified; I10 Essential (primary) hypertension; E11.9 Type 2 diabetes mellitus without complications; J44.9 Chronic obstructive pulmonary disease, unspecified; F17.210 Nicotine dependence, cigarettes, uncomplicated; Z72.9 Problem related to lifestyle, unspecified; Z90.49 Acquired absence of other specified parts of digestive tract
CPT/HCPCS: 36415; 80053; 81003; 83690; 85025; 99283; Q0162

== ENCOUNTER 2019-11-17 18:47 | Emergency (ER) | payer MEDICARE, MEDICAID ==
[~2019-11-17] VITALS: Ht 172.7 cm; Wt 94.2 kg
[2019-11-17 18:51] VITALS: BP 135/86
== END 2019-11-17 19:51 | disposition left against medical advice (07) ==
LOC: ED 19:35
DX: R10.9 Unspecified abdominal pain (principal); R42 Dizziness and giddiness; Z53.21 Procedure and treatment not carried out due to patient leaving prior to being seen by health care provider

== ENCOUNTER 2019-11-18 11:48 | Emergency (ER) | payer MEDICARE, MEDICAID ==
[~2019-11-18] VITALS: Ht 172.7 cm; Wt 95.0 kg
--- NOTE | 2019-11-18 12:33 | NUR ---
FIRST CONTACT WITH PT. PT HERE LAST NOC FOR ABD PAIN LEFT WO BEING SEEN THEN TRIPPED AND STRUCK RIBS ON A TABLE IN THE MORNING. NOW HAS BOTH ABD PAIN AND R RIB PAIN. PT'S AOX4. RESPS EVEN AND UNLABORED. BP/SPO2 MONITORS IN PLACE. CALL LIGHT WITHIN REACH.
--- NOTE | 2019-11-18 13:03 | NUR ---
URINE CUP GIVEN. LAB AT BEDSIDE.
[2019-11-18 13:12] LABS: BASOPHILS # (AUTO) 0.02 x10^3/uL (0-0.1); BASOPHILS % (AUTO) 0 % (0-1); EOSINOPHILS # (AUTO) 0.17 x10^3/uL (0-0.4); EOSINOPHILS % (AUTO) 2 % (1-7); LYMPHOCYTES # (AUTO) 1.81 x10^3/uL (1-3.4); LYMPHOCYTES % (AUTO) 23 % (22-44); MD NO; MEAN CORPUSCULAR HEMOGLOBIN 31.6 pg (27.5-34.5); MEAN CORPUSCULAR HGB CONC 33.2 g/dL (33.2-36.2); MEAN CORPUSCULAR VOLUME 95.1 fL (81-97); MEAN PLATELET VOLUME 7.5 fL (7.4-10.4); MONOCYTES # (AUTO) 0.79 x10^3/uL (0.2-0.8); MONOCYTES % (AUTO) 10 % (2-9); NEUTROPHILS # (AUTO) 5.03 x10^3/uL (1.8-6.8); NEUTROPHILS % (AUTO) 64 % (42-75); PLATELET COUNT 239 x10^3/uL (130-400); RED BLOOD COUNT 4.94 x10^6/uL (4.38-5.82); RED CELL DISTRIBUTION WIDTH 14.6 % (9.4-14.8)
[2019-11-18 13:22] LABS: ALANINE AMINOTRANSFERASE 38 U/L (12-78); ALBUMIN 3.5 g/dL (3.4-5.0); ANION GAP 4 mmol/L (5-15); CALCIUM 8.6 mg/dL (8.5-10.1); CHLORIDE 110 mmol/L (98-107); CREATININE 0.92 mg/dL (0.7-1.3)
[2019-11-18 13:24] LABS: ALKALINE PHOSPHATASE 73 U/L (45-117); BILIRUBIN,TOTAL 0.7 mg/dL (0.2-1.0)
[2019-11-18 14:25] LABS: CULTURE INDICATED? YES; MICROSCOPIC INDICATED
[2019-11-18 15:15] VITALS: BP 138/98
--- NOTE | 2019-11-18 15:16 | NUR ---
Patient given discharge instructions and they have confirmed that they understand the instructions. Patient ambulatory with steady gait.
== END 2019-11-18 15:17 | disposition home or self-care (01) ==
LOC: ED 12:38
DX: S20.211A Contusion of right front wall of thorax, initial encounter (principal); R10.13 Epigastric pain; K85.00 Idiopathic acute pancreatitis without necrosis or infection; I10 Essential (primary) hypertension; E11.9 Type 2 diabetes mellitus without complications; J44.9 Chronic obstructive pulmonary disease, unspecified; W01.0XXA Fall on same level from slipping, tripping and stumbling without subsequent striking against object, initial encounter; Y93.89 Activity, other specified; Y92.098 Other place in other non-institutional residence as the place of occurrence of the external cause; Y99.8 Other external cause status
CPT/HCPCS: 36415; 71045; 80053; 81001; 83690; 85025; 87086; 93005; 99284

== ENCOUNTER 2019-11-29 09:41 | Emergency (ER) | payer MEDICARE, MEDICAID ==
[~2019-11-29] VITALS: Ht 172.7 cm; Wt 94.3 kg
[2019-11-29] MEDS ORDERED: FLUT1BLS3 IH (10:02)
[2019-11-29 10:44] LABS: CULTURE INDICATED? YES; MICROSCOPIC INDICATED
--- NOTE | 2019-11-29 10:55 | NUR ---
REPORT RECEIVED FROM IMAN CAMPO.
[2019-11-29 11:24] LABS: BASOPHILS # (AUTO) 0.03 x10^3/uL (0-0.1); BASOPHILS % (AUTO) 1 % (0-1); EOSINOPHILS # (AUTO) 0.11 x10^3/uL (0-0.4); EOSINOPHILS % (AUTO) 2 % (1-7); LYMPHOCYTES # (AUTO) 1.59 x10^3/uL (1-3.4); LYMPHOCYTES % (AUTO) 26 % (22-44); MD NO; MEAN CORPUSCULAR HEMOGLOBIN 31.3 pg (27.5-34.5); MEAN CORPUSCULAR HGB CONC 32.5 g/dL (33.2-36.2); MEAN CORPUSCULAR VOLUME 96.2 fL (81-97); MEAN PLATELET VOLUME 8.1 fL (7.4-10.4); MONOCYTES # (AUTO) 0.58 x10^3/uL (0.2-0.8); MONOCYTES % (AUTO) 9 % (2-9); NEUTROPHILS # (AUTO) 3.83 x10^3/uL (1.8-6.8); NEUTROPHILS % (AUTO) 62 % (42-75); PLATELET COUNT 214 x10^3/uL (130-400); RED BLOOD COUNT 5.19 x10^6/uL (4.38-5.82); RED CELL DISTRIBUTION WIDTH 14.5 % (9.4-14.8)
--- NOTE | 2019-11-29 11:31 | NUR ---
PT RESTING ON [place] W/ CALL LIGHT IN REACH. AWARE WE NEED STOOL SAMPLE. ISO CART PLACED OUTSIDE ROOM.
[2019-11-29 11:37] LABS: ALBUMIN 3.6 g/dL (3.4-5.0); ANION GAP 7 mmol/L (5-15); CALCIUM 8.9 mg/dL (8.5-10.1); CHLORIDE 107 mmol/L (98-107)
[2019-11-29 11:40] LABS: ALANINE AMINOTRANSFERASE 33 U/L (12-78); ALKALINE PHOSPHATASE 89 U/L (45-117); BILIRUBIN,TOTAL 0.9 mg/dL (0.2-1.0); CREATININE 1.03 mg/dL (0.7-1.3); TOTAL PROTEIN 7.6 g/dL (6.4-8.2)
[2019-11-29 11:42] VITALS: BP 129/79
--- NOTE | 2019-11-29 11:44 | NUR ---
PT UNABLE TO PROVIDE STOOL SAMPLE. ALL OTHER TESTS RESULTED AT THIS TIME. PT IS UP FOR RECHECK.
--- NOTE | 2019-11-29 12:25 | NUR ---
PT ATTEMPTING TO PROVIDE STOOL SAMPLE.
--- NOTE | 2019-11-29 12:33 | NUR ---
PT UNABLE TO PROVIDE STOOL SAMPLE.
--- NOTE | 2019-11-29 12:37 | NUR ---
Patient given discharge instructions and they have confirmed that they understand the instructions. Patient ambulatory with steady gait.
== END 2019-11-29 12:38 | disposition home or self-care (01) ==
LOC: ED 12:22
DX: R10.32 Left lower quadrant pain (principal); R19.7 Diarrhea, unspecified; E11.9 Type 2 diabetes mellitus without complications; J44.9 Chronic obstructive pulmonary disease, unspecified; I10 Essential (primary) hypertension; Z87.891 Personal history of nicotine dependence
CPT/HCPCS: 36415; 80053; 81001; 83690; 85025; 87086; 99283

== ENCOUNTER 2019-12-03 13:30 | Emergency (ER) | payer MEDICARE, MEDICAID ==
[~2019-12-03] VITALS: Ht 172.7 cm; Wt 94.8 kg
[2019-12-03 14:14] LABS: ALBUMIN 3.8 g/dL (3.4-5.0); ANION GAP 4 mmol/L (5-15); BASOPHILS # (AUTO) 0.04 x10^3/uL (0-0.1); BASOPHILS % (AUTO) 1 % (0-1); CALCIUM 9.2 mg/dL (8.5-10.1); CHLORIDE 109 mmol/L (98-107); CREATININE 0.97 mg/dL (0.7-1.3); EOSINOPHILS # (AUTO) 0.14 x10^3/uL (0-0.4); EOSINOPHILS % (AUTO) 2 % (1-7); LYMPHOCYTES # (AUTO) 1.84 x10^3/uL (1-3.4); LYMPHOCYTES % (AUTO) 22 % (22-44); MD NO; MEAN CORPUSCULAR HEMOGLOBIN 31.5 pg (27.5-34.5); MEAN CORPUSCULAR HGB CONC 33.1 g/dL (33.2-36.2); MEAN CORPUSCULAR VOLUME 95.1 fL (81-97); MEAN PLATELET VOLUME 7.8 fL (7.4-10.4); MONOCYTES # (AUTO) 0.92 x10^3/uL (0.2-0.8); MONOCYTES % (AUTO) 11 % (2-9); NEUTROPHILS % (AUTO) 65 % (42-75); PLATELET COUNT 219 x10^3/uL (130-400); RED BLOOD COUNT 5.04 x10^6/uL (4.38-5.82); RED CELL DISTRIBUTION WIDTH 14.7 % (9.4-14.8)
[2019-12-03 14:18] LABS: TROPONIN I < 0.015 ng/mL (0.000-0.045)
[2019-12-03 14:48] VITALS: BP 151/99
--- NOTE | 2019-12-03 15:19 | NUR ---
THIS IS A 54 YO M W/ C/O RT SIDED CP THAT STARTED TODAY WHILE HE WAS WORKING UNDER HIS DECK. PT ALSO REPORTS LEFT SIDED ABD PAIN. DENIES N/V/SOB. RESP EVEN AND UNLABORED. VS STABLE. NADN. PT IS RESTING ON [employer] W/ CALL LIGHT IN REACH AWAITING TEST RESULTS.
== END 2019-12-03 15:26 | disposition home or self-care (01) ==
LOC: ED 15:15
DX: R07.89 Other chest pain (principal); R10.32 Left lower quadrant pain; R06.02 Shortness of breath; E11.9 Type 2 diabetes mellitus without complications; I10 Essential (primary) hypertension
CPT/HCPCS: 36415; 71045; 80048; 82040; 84484; 85025; 93005; 99284

== ENCOUNTER 2019-12-10 18:58 | Emergency (ER) | payer MEDICARE, MEDICAID ==
[~2019-12-10] VITALS: Ht 172.7 cm; Wt 94.4 kg
[2019-12-10 19:20] VITALS: BP 141/97
[2019-12-10] MEDS ORDERED: HYDROcodone/APAP 5/325 TABLET ONE (19:49)
--- NOTE | 2019-12-10 19:51 | NUR ---
MEDS ADMIN PER DEC.
[2019-12-10] MEDS ORDERED: HYDROcodone/APAP 5/325 TABLET PO ONE (20:00)
== END 2019-12-10 19:55 | disposition home or self-care (01) ==
LOC: ED 19:39
DX: K02.9 Dental caries, unspecified (principal); K04.7 Periapical abscess without sinus; I10 Essential (primary) hypertension; E11.9 Type 2 diabetes mellitus without complications; J44.9 Chronic obstructive pulmonary disease, unspecified; K21.9 Gastro-esophageal reflux disease without esophagitis; G89.29 Other chronic pain; Z90.89 Acquired absence of other organs; Z90.49 Acquired absence of other specified parts of digestive tract; Z87.891 Personal history of nicotine dependence
CPT/HCPCS: 99283

== ENCOUNTER 2019-12-16 10:51 | Emergency (ER) | payer MEDICARE, MEDICAID ==
[~2019-12-16] VITALS: Ht 172.7 cm; Wt 94.8 kg
--- NOTE | 2019-12-16 11:19 | NUR ---
Pt ambulated independently to ED room 14 from taylor in NAD
--- NOTE | 2019-12-16 11:46 | NUR ---
Pt changed into gown and laying on gurney, call light within reach, respirations equal bilaterally, unlabored, NAD, denies any additional needs at this time. Given warm balnkets. WCTM.
[2019-12-16 11:52] LABS: BASOPHILS # (AUTO) 0.03 x10^3/uL (0-0.1); BASOPHILS % (AUTO) 0 % (0-1); EOSINOPHILS # (AUTO) 0.13 x10^3/uL (0-0.4); EOSINOPHILS % (AUTO) 2 % (1-7); LYMPHOCYTES % (AUTO) 23 % (22-44); MD NO; MEAN CORPUSCULAR HEMOGLOBIN 31.5 pg (27.5-34.5); MEAN CORPUSCULAR HGB CONC 33.1 g/dL (33.2-36.2); MEAN CORPUSCULAR VOLUME 95.3 fL (81-97); MEAN PLATELET VOLUME 7.8 fL (7.4-10.4); MONOCYTES # (AUTO) 0.77 x10^3/uL (0.2-0.8); MONOCYTES % (AUTO) 12 % (2-9); NEUTROPHILS # (AUTO) 4.18 x10^3/uL (1.8-6.8); NEUTROPHILS % (AUTO) 63 % (42-75); PLATELET COUNT 219 x10^3/uL (130-400); RED BLOOD COUNT 4.79 x10^6/uL (4.38-5.82); RED CELL DISTRIBUTION WIDTH 14.4 % (9.4-14.8)
[2019-12-16 12:04] LABS: ALBUMIN 3.3 g/dL (3.4-5.0); ANION GAP 4 mmol/L (5-15); CALCIUM 8.6 mg/dL (8.5-10.1); CHLORIDE 109 mmol/L (98-107)
[2019-12-16 12:07] LABS: ALANINE AMINOTRANSFERASE 32 U/L (12-78); ALKALINE PHOSPHATASE 84 U/L (45-117); BILIRUBIN,TOTAL 0.5 mg/dL (0.2-1.0); CREATININE 1.08 mg/dL (0.7-1.3); TOTAL PROTEIN 7.1 g/dL (6.4-8.2)
[2019-12-16 12:30] VITALS: BP 163/88
== END 2019-12-16 12:33 | disposition home or self-care (01) ==
LOC: ED 12:15
DX: R10.84 Generalized abdominal pain (principal); R10.13 Epigastric pain; R11.0 Nausea; I10 Essential (primary) hypertension; E11.9 Type 2 diabetes mellitus without complications; J44.9 Chronic obstructive pulmonary disease, unspecified; K21.9 Gastro-esophageal reflux disease without esophagitis; Z90.89 Acquired absence of other organs; Z90.49 Acquired absence of other specified parts of digestive tract; Z87.891 Personal history of nicotine dependence
CPT/HCPCS: 36415; 74021; 80053; 83690; 85025; 93005; 99285

== ENCOUNTER 2020-01-08 11:29 | Emergency (ER) | payer MEDICARE, MEDICAID ==
[~2020-01-08] VITALS: Ht 172.7 cm; Wt 96.1 kg
[2020-01-08 11:42] VITALS: BP 162/94
--- NOTE | 2020-01-08 12:05 | NUR ---
PT AMBULATORY TO [facility] FROM TRIAGE WITH OWN CANE. NAD NOTED. RESP REGULAR AND UNLABORED. PT WEARING MASK FOR REPORTED COUGH. 54 Y/O M PRESENTS STATING "COUGH ON AND OFF AND SORE THROAT FOR ONE WEEK NOW, SOMETIMES I COUGH SO HARD I GAG AND THROW UP." DENIES NASUEA, PAIN, CP, SOB, V/D, FEVERS, RASHES OR CHILLS. CALL LIGHT IN REACH. FALL PRECAUTIONS IN PLACE. ISOLATIONS PRECAUTIONS IN PLACE FOR REPORTED COUGH PER VANNESA COSBY.
--- NOTE | 2020-01-08 12:35 | NUR ---
VANNESA COSBY AT BEDSIDE FOR EVAL
== END 2020-01-08 13:23 | disposition home or self-care (01) ==
LOC: ED 13:17
DX: B34.9 Viral infection, unspecified (principal); J44.9 Chronic obstructive pulmonary disease, unspecified; I10 Essential (primary) hypertension; E11.9 Type 2 diabetes mellitus without complications; I26.99 Other pulmonary embolism without acute cor pulmonale; Z90.49 Acquired absence of other specified parts of digestive tract
CPT/HCPCS: 71045; 99283

== ENCOUNTER 2020-03-01 16:10 | Emergency (ER) | payer MEDICARE, MEDICAID ==
[~2020-03-01] VITALS: Ht 172.7 cm; Wt 210.0 kg
--- NOTE | 2020-03-01 16:30 | NUR ---
[facility] CHEST PAIN INCLUDING LEFT ARM STARTING TWO HOURS AG. PT DENIES OTHER SYMPTOMS.
[2020-03-01 17:13] LABS: BASOPHILS # (AUTO) 0.02 x10^3/uL (0-0.1); BASOPHILS % (AUTO) 0 % (0-1); EOSINOPHILS % (AUTO) 1 % (1-7); LYMPHOCYTES # (AUTO) 1.72 x10^3/uL (1-3.4); LYMPHOCYTES % (AUTO) 23 % (22-44); MD NO; MEAN CORPUSCULAR HEMOGLOBIN 31.2 pg (27.5-34.5); MEAN CORPUSCULAR VOLUME 94.4 fL (81-97); MEAN PLATELET VOLUME 7.5 fL (7.4-10.4); MONOCYTES # (AUTO) 0.59 x10^3/uL (0.2-0.8); MONOCYTES % (AUTO) 8 % (2-9); NEUTROPHILS # (AUTO) 5.11 x10^3/uL (1.8-6.8); NEUTROPHILS % (AUTO) 68 % (42-75); PLATELET COUNT 180 x10^3/uL (130-400); RED BLOOD COUNT 4.91 x10^6/uL (4.38-5.82); RED CELL DISTRIBUTION WIDTH 14.2 % (9.4-14.8)
[2020-03-01 17:28] LABS: ALBUMIN 3.4 g/dL (3.4-5.0); CALCIUM 8.7 mg/dL (8.5-10.1); CREATININE 1.01 mg/dL (0.7-1.3)
[2020-03-01 17:30] LABS: TROPONIN I < 0.015 ng/mL (0.000-0.045)
--- NOTE | 2020-03-01 17:30 | NUR ---
PT RESTING IN BED, CALL LIGHT IN REACH.
[2020-03-01 17:33] LABS: ANION GAP 5 mmol/L (5-15); CHLORIDE 108 mmol/L (98-107)
[2020-03-01 17:47] VITALS: BP 127/77
--- NOTE | 2020-03-01 18:30 | NUR ---
DISCHARGE INSTRUCTIONS REVIEWED
== END 2020-03-01 18:45 | disposition home or self-care (01) ==
LOC: ED 16:48
DX: R07.2 Precordial pain (principal); R19.7 Diarrhea, unspecified; R94.31 Abnormal electrocardiogram [ECG] [EKG]; J44.9 Chronic obstructive pulmonary disease, unspecified; E11.9 Type 2 diabetes mellitus without complications; G43.909 Migraine, unspecified, not intractable, without status migrainosus; K21.9 Gastro-esophageal reflux disease without esophagitis; I11.9 Hypertensive heart disease without heart failure; G89.29 Other chronic pain; Z90.49 Acquired absence of other specified parts of digestive tract; Z90.89 Acquired absence of other organs
CPT/HCPCS: 36415; 71045; 80048; 82040; 83880; 84484; 85025; 93005; 99285

== ENCOUNTER 2020-03-03 16:02 | Emergency (ER) | payer MEDICARE, MEDICAID ==
[~2020-03-03] VITALS: Ht 175.3 cm; Wt 85.0 kg
[2020-03-03 16:11] VITALS: BP 145/84
[2020-03-03] MEDS ORDERED: ACETAMINOPHEN 500 MG TABLET PO ONE (16:30)
[2020-03-03] MEDS ORDERED: PLEASE ENTER HEIGHT AND WEIGHT MC SCH (16:30)
[2020-03-03] MEDS ORDERED: ACETAMINOPHEN 500 MG TABLET ONE (17:45)
--- NOTE | 2020-03-03 17:45 | NUR ---
PA TALKING WITH PT ABOUT CT RESULTS AND INTENTION TO DISCHARGE. MEDICATED FOR CHRISTENSEN NOTED ON MAR
--- NOTE | 2020-03-03 18:42 | NUR ---
PT RESTING WITH EYES CLOSED WHILE AWAITING DISCHARGE PAPERS
--- NOTE | 2020-03-03 19:03 | NUR ---
REPORT TO SHANNA CAMPO
--- NOTE | 2020-03-03 19:05 | NUR ---
Report received from JAHAIRA Diaz. THis RN to assume care. Discharge up.
--- NOTE | 2020-03-03 19:08 | NUR ---
Discharge instructions given. All questions and concers addressed. Patient ambulatory with a steady gait. Belongings with patient.
== END 2020-03-03 19:10 | disposition home or self-care (01) ==
LOC: ED 16:44
DX: S00.03XA Contusion of scalp, initial encounter (principal); S09.90XA Unspecified injury of head, initial encounter; I10 Essential (primary) hypertension; E11.9 Type 2 diabetes mellitus without complications; J44.9 Chronic obstructive pulmonary disease, unspecified; Z90.49 Acquired absence of other specified parts of digestive tract; Z87.891 Personal history of nicotine dependence; Z90.89 Acquired absence of other organs; W22.8XXA Striking against or struck by other objects, initial encounter; Y93.89 Activity, other specified; Y92.410 Unspecified street and highway as the place of occurrence of the external cause; Y99.8 Other external cause status
CPT/HCPCS: 70450; 99284

== ENCOUNTER 2020-03-08 10:19 | Emergency (ER) | payer MEDICARE, MEDICAID ==
[~2020-03-08] VITALS: Ht 172.7 cm; Wt 95.3 kg
[2020-03-08 10:28] VITALS: BP 142/97
--- NOTE | 2020-03-08 11:07 | NUR ---
THIS PT WAS BIB [facility] AFTER TRYING TO STEP UP ON THE [place] AT THE BUS STATION. STATES HE WOULD HAVE TAKEN THE BUS BUT COULDN'T WALK. PT SITTING IN BED, MAKING JOKES TO RN, NO SIGNS OF DISTRESS, ALL NEEDS MET AT THIS TIME. WILL CONTINUE TO MONITOR.
== END 2020-03-08 12:16 | disposition home or self-care (01) ==
LOC: ED 11:52
DX: S76.112A Strain of left quadriceps muscle, fascia and tendon, initial encounter (principal); Z86.718 Personal history of other venous thrombosis and embolism; X58.XXXA Exposure to other specified factors, initial encounter; Y93.89 Activity, other specified; Y92.89 Other specified places as the place of occurrence of the external cause; Y99.8 Other external cause status
CPT/HCPCS: 99284

== ENCOUNTER 2020-03-16 15:48 | Emergency (ER) | payer MEDICARE, MEDICAID ==
[~2020-03-16] VITALS: Ht 172.7 cm; Wt 95.5 kg
--- NOTE | 2020-03-16 15:55 | NUR ---
PT REPORT FROM JAHAIRA WOODRUFF. PT CARE TO BE ASSUMED. XR AT BS. LAB WAITING AT ROOM.
[2020-03-16] MEDS ORDERED: SODIUM CHLORIDE FLUSH 10ML SYR IVF ONE (16:00)
[2020-03-16] MEDS ORDERED: PLEASE ENTER HEIGHT AND WEIGHT MC SCH (16:00)
[2020-03-16 16:18] LABS: BASOPHILS # (AUTO) 0.02 x10^3/uL (0-0.1); BASOPHILS % (AUTO) 0 % (0-1); EOSINOPHILS # (AUTO) 0.12 x10^3/uL (0-0.4); EOSINOPHILS % (AUTO) 2 % (1-7); LYMPHOCYTES # (AUTO) 1.57 x10^3/uL (1-3.4); LYMPHOCYTES % (AUTO) 20 % (22-44); MD NO; MEAN CORPUSCULAR HEMOGLOBIN 31.1 pg (27.5-34.5); MEAN CORPUSCULAR HGB CONC 33.2 g/dL (33.2-36.2); MEAN CORPUSCULAR VOLUME 93.8 fL (81-97); MEAN PLATELET VOLUME 7.9 fL (7.4-10.4); MONOCYTES # (AUTO) 0.82 x10^3/uL (0.2-0.8); MONOCYTES % (AUTO) 11 % (2-9); NEUTROPHILS # (AUTO) 5.24 x10^3/uL (1.8-6.8); NEUTROPHILS % (AUTO) 67 % (42-75); PLATELET COUNT 202 x10^3/uL (130-400); RED BLOOD COUNT 5.05 x10^6/uL (4.38-5.82); RED CELL DISTRIBUTION WIDTH 14.6 % (9.4-14.8)
[2020-03-16 16:27] LABS: ALBUMIN 3.5 g/dL (3.4-5.0); ANION GAP 6 mmol/L (5-15); CHLORIDE 106 mmol/L (98-107)
[2020-03-16 16:35] LABS: ALANINE AMINOTRANSFERASE 43 U/L (12-78); ALKALINE PHOSPHATASE 93 U/L (45-117); BILIRUBIN,TOTAL 0.4 mg/dL (0.2-1.0); CREATININE 1.07 mg/dL (0.7-1.3); TOTAL PROTEIN 7.3 g/dL (6.4-8.2); TROPONIN I < 0.015 ng/mL (0.000-0.045)
--- NOTE | 2020-03-16 18:12 | NUR ---
PT REPORT TO SAMY WOODRUFF RN.
--- NOTE | 2020-03-16 18:16 | NUR ---
BREAK RN: PATIENT RESTING ON GURNEY, RESPIRATIONS EVEN AND UNLABORED, ZOLTAN KNOX AT THIS TIME, CALL LIGHT IN REACH
[2020-03-16 18:32] LABS: MICROSCOPIC AUTO
--- NOTE | 2020-03-16 18:45 | NUR ---
BREAK RN: REPORT GIVEN BACK TO ABIODUN, PRIMARY PT RN
[2020-03-16 20:01] VITALS: BP 122/80
--- NOTE | 2020-03-16 21:07 | NUR ---
TASK RN: Patient given discharge instructions and they have confirmed that they understand the instructions. Patient ambulatory with steady gait.
== END 2020-03-16 21:20 | disposition home or self-care (01) ==
LOC: ED 15:54
DX: N30.00 Acute cystitis without hematuria (principal); R07.2 Precordial pain; R10.9 Unspecified abdominal pain; R94.31 Abnormal electrocardiogram [ECG] [EKG]; I10 Essential (primary) hypertension; E11.9 Type 2 diabetes mellitus without complications; J44.9 Chronic obstructive pulmonary disease, unspecified; K21.9 Gastro-esophageal reflux disease without esophagitis; G89.29 Other chronic pain; G43.909 Migraine, unspecified, not intractable, without status migrainosus; Z90.89 Acquired absence of other organs; Z90.49 Acquired absence of other specified parts of digestive tract
CPT/HCPCS: 36415; 71045; 80053; 81001; 83690; 84484; 85025; 87077; 87086; 93005; 99285

== ENCOUNTER 2020-04-03 10:17 | Emergency (ER) | payer MEDICARE, MEDICAID ==
[~2020-04-03] VITALS: Ht 172.7 cm; Wt 96.7 kg
--- NOTE | 2020-04-03 11:33 | NUR ---
Pt assisted to bathroom. Back from CT
[2020-04-03 12:15] VITALS: BP 144/92
--- NOTE | 2020-04-03 12:15 | NUR ---
Pt has no complaints, waiting for DC paperwork. VS updated.
== END 2020-04-03 12:38 | disposition home or self-care (01) ==
LOC: ED 12:30
DX: M54.16 Radiculopathy, lumbar region (principal); G89.29 Other chronic pain; I10 Essential (primary) hypertension; J44.9 Chronic obstructive pulmonary disease, unspecified; E11.9 Type 2 diabetes mellitus without complications; K21.9 Gastro-esophageal reflux disease without esophagitis; Z86.711 Personal history of pulmonary embolism; Z90.49 Acquired absence of other specified parts of digestive tract; Z98.1 Arthrodesis status
CPT/HCPCS: 72110; 99283

== ENCOUNTER 2020-04-08 15:29 | Emergency (ER) | payer MEDICARE, MEDICAID ==
[~2020-04-08] VITALS: Ht 172.7 cm; Wt 96.0 kg
--- NOTE | 2020-04-08 15:54 | NUR ---
PT IN HOSPITAL GOWN. PT AMBULATORY TO THE BATHROOM STEADILY. AWAITING ERP EVAL.
[2020-04-08 16:22] LABS: ALBUMIN 3.5 g/dL (3.4-5.0); ANION GAP 5 mmol/L (5-15); CALCIUM 8.6 mg/dL (8.5-10.1); CHLORIDE 109 mmol/L (98-107)
[2020-04-08 16:24] LABS: BASOPHILS # (AUTO) 0.03 x10^3/uL (0-0.1); BASOPHILS % (AUTO) 0 % (0-1); EOSINOPHILS % (AUTO) 3 % (1-7); LYMPHOCYTES # (AUTO) 1.96 x10^3/uL (1-3.4); LYMPHOCYTES % (AUTO) 24 % (22-44); MD NO; MEAN CORPUSCULAR HEMOGLOBIN 31.3 pg (27.5-34.5); MEAN CORPUSCULAR HGB CONC 33.2 g/dL (33.2-36.2); MEAN CORPUSCULAR VOLUME 94.2 fL (81-97); MONOCYTES # (AUTO) 0.78 x10^3/uL (0.2-0.8); MONOCYTES % (AUTO) 10 % (2-9); NEUTROPHILS # (AUTO) 5.11 x10^3/uL (1.8-6.8); NEUTROPHILS % (AUTO) 63 % (42-75); PLATELET COUNT 215 x10^3/uL (130-400); RED BLOOD COUNT 4.94 x10^6/uL (4.38-5.82); RED CELL DISTRIBUTION WIDTH 14.7 % (9.4-14.8)
[2020-04-08 16:25] LABS: ALANINE AMINOTRANSFERASE 36 U/L (12-78); ALKALINE PHOSPHATASE 90 U/L (45-117); BILIRUBIN,TOTAL 0.4 mg/dL (0.2-1.0); CREATININE 1.09 mg/dL (0.7-1.3); TOTAL PROTEIN 7.4 g/dL (6.4-8.2)
--- NOTE | 2020-04-08 16:35 | NUR ---
ALL RESUTLS BACK. PT UP FOR RECHECK.
[2020-04-08 19:20] VITALS: BP 136/67
== END 2020-04-08 19:22 | disposition home or self-care (01) ==
LOC: ED 15:40
DX: R11.2 Nausea with vomiting, unspecified (principal); R10.12 Left upper quadrant pain; E11.9 Type 2 diabetes mellitus without complications; J44.9 Chronic obstructive pulmonary disease, unspecified; K21.9 Gastro-esophageal reflux disease without esophagitis; I10 Essential (primary) hypertension; Z90.89 Acquired absence of other organs; Z90.49 Acquired absence of other specified parts of digestive tract
CPT/HCPCS: 36415; 74021; 80053; 83690; 85025; 99284

== ENCOUNTER 2020-05-19 16:50 | Emergency (ER) | payer MEDICARE, MEDICAID ==
[~2020-05-19] VITALS: Ht 172.7 cm; Wt 100.0 kg
[2020-05-19 18:00] LABS: MICROSCOPIC AUTO
[2020-05-19 18:03] VITALS: BP 144/91
[2020-05-19 18:03] LABS: BASOPHILS # (AUTO) 0.05 x10^3/uL (0-0.1); BASOPHILS % (AUTO) 1 % (0-1); EOSINOPHILS # (AUTO) 0.17 x10^3/uL (0-0.4); EOSINOPHILS % (AUTO) 2 % (1-7); LYMPHOCYTES # (AUTO) 1.58 x10^3/uL (1-3.4); LYMPHOCYTES % (AUTO) 17 % (22-44); MD NO; MEAN CORPUSCULAR HEMOGLOBIN 31.4 pg (27.5-34.5); MEAN CORPUSCULAR HGB CONC 33.1 g/dL (33.2-36.2); MEAN CORPUSCULAR VOLUME 94.9 fL (81-97); MEAN PLATELET VOLUME 7.7 fL (7.4-10.4); MONOCYTES # (AUTO) 0.72 x10^3/uL (0.2-0.8); MONOCYTES % (AUTO) 8 % (2-9); NEUTROPHILS # (AUTO) 6.97 x10^3/uL (1.8-6.8); NEUTROPHILS % (AUTO) 74 % (42-75); PLATELET COUNT 208 x10^3/uL (130-400); RED BLOOD COUNT 4.77 x10^6/uL (4.38-5.82); RED CELL DISTRIBUTION WIDTH 14.5 % (9.4-14.8)
[2020-05-19 18:07] LABS: ALBUMIN 3.3 g/dL (3.4-5.0); ANION GAP 7 mmol/L (5-15); CALCIUM 8.7 mg/dL (8.5-10.1); CHLORIDE 110 mmol/L (98-107); CREATININE 1.05 mg/dL (0.7-1.3)
[2020-05-19] MEDS ORDERED: CEFTRIAXONE 1,000 MG IM ONE (18:30)
[2020-05-19] MEDS ORDERED: CEFTRIAXONE 1,000 MG ONE (18:31)
--- NOTE | 2020-05-19 19:01 | NUR ---
BLADDER SCAN 325. HEWITT 12 FR CATH INSERTED, INFECTED TIGHT URETHRAL OPENING SO 2 ATTEMPTS AND NEEDED SMALLER HEWITT, LEG BAG ATTACHED. EDUCATION RE: EMPTYING LEG BAG. GIVEN URINAL. TO F/U OUTPT. AGREES. ABX PER DEC. GIVEN DC INFO/RX/EDUCATION. TO DC WINDOW W ALL BELONGINGS.
== END 2020-05-19 19:03 | disposition home or self-care (01) ==
LOC: ED 19:00
DX: N40.1 Benign prostatic hyperplasia with lower urinary tract symptoms (principal); R33.8 Other retention of urine; N47.1 Phimosis; J44.9 Chronic obstructive pulmonary disease, unspecified; I10 Essential (primary) hypertension; G43.909 Migraine, unspecified, not intractable, without status migrainosus
CPT/HCPCS: 36415; 51702; 80048; 81001; 82040; 85025; 87086; 96372; 99284; J0696

== ENCOUNTER 2020-05-21 09:52 | Emergency (ER) | payer MEDICARE, MEDICAID ==
[~2020-05-21] VITALS: Ht 172.7 cm; Wt 98.4 kg
[~2020-05-21 09:52] MED LIST changes: -LISI1TAB19 PO; +LISI1TAB39 PO
== END 2020-05-21 10:57 | disposition home or self-care (01) ==
LOC: ED 10:20
DX: T83.9XXA Unspecified complication of genitourinary prosthetic device, implant and graft, initial encounter (principal); I10 Essential (primary) hypertension; K21.9 Gastro-esophageal reflux disease without esophagitis; Z90.89 Acquired absence of other organs; Z90.49 Acquired absence of other specified parts of digestive tract; Z79.899 Other long term (current) drug therapy
CPT/HCPCS: 99281

== ENCOUNTER 2020-06-06 11:37 | Emergency (ER) | payer MEDICARE, MEDICAID ==
[~2020-06-06] VITALS: Ht 172.7 cm; Wt 99.7 kg
[~2020-06-06 11:37] MED LIST changes: +LISI1TAB19 PO; -LISI1TAB39 PO
--- NOTE | 2020-06-06 12:15 | NUR ---
LAB IN TO DRAW.
[2020-06-06 12:30] LABS: BASOPHILS # (AUTO) 0.02 x10^3/uL (0-0.1); BASOPHILS % (AUTO) 0 % (0-1); EOSINOPHILS # (AUTO) 0.18 x10^3/uL (0-0.4); EOSINOPHILS % (AUTO) 3 % (1-7); LYMPHOCYTES # (AUTO) 1.76 x10^3/uL (1-3.4); LYMPHOCYTES % (AUTO) 29 % (22-44); MD NO; MEAN CORPUSCULAR HEMOGLOBIN 31.7 pg (27.5-34.5); MEAN CORPUSCULAR HGB CONC 33.4 g/dL (33.2-36.2); MEAN PLATELET VOLUME 7.8 fL (7.4-10.4); MONOCYTES # (AUTO) 0.78 x10^3/uL (0.2-0.8); MONOCYTES % (AUTO) 13 % (2-9); NEUTROPHILS # (AUTO) 3.42 x10^3/uL (1.8-6.8); NEUTROPHILS % (AUTO) 56 % (42-75); PLATELET COUNT 196 x10^3/uL (130-400); RED BLOOD COUNT 4.89 x10^6/uL (4.38-5.82); RED CELL DISTRIBUTION WIDTH 14.1 % (9.4-14.8)
[2020-06-06 12:42] LABS: ALANINE AMINOTRANSFERASE 47 U/L (12-78); ALBUMIN 3.7 g/dL (3.4-5.0); ANION GAP 4 mmol/L (5-15); CALCIUM 9.2 mg/dL (8.5-10.1); CHLORIDE 108 mmol/L (98-107); CREATININE 0.96 mg/dL (0.7-1.3)
[2020-06-06 12:45] LABS: ALKALINE PHOSPHATASE 84 U/L (45-117); BILIRUBIN,TOTAL 0.4 mg/dL (0.2-1.0); TOTAL PROTEIN 7.5 g/dL (6.4-8.2)
--- NOTE | 2020-06-06 13:00 | NUR ---
ALL RESULTS BACK, PT FOR RECHECK. URINAL PROVIDED PER PT REQUEST.
--- NOTE | 2020-06-06 13:20 | NUR ---
REPORT TO ANAID, TRANSFER OF CARE AT THIS TIME.
[2020-06-06 13:27] VITALS: BP 134/92
--- NOTE | 2020-06-06 13:27 | NUR ---
PT IN NAD. WAITING FOR MD RECHECK. PT AWARE.
== END 2020-06-06 14:11 | disposition home or self-care (01) ==
LOC: ED 12:07
DX: R20.2 Paresthesia of skin (principal); R42 Dizziness and giddiness; R94.31 Abnormal electrocardiogram [ECG] [EKG]
CPT/HCPCS: 36415; 80053; 83690; 85025; 93005; 99284

== ENCOUNTER 2020-07-07 19:30 | Emergency (ER) | payer MEDICARE, MEDICAID ==
[~2020-07-07] VITALS: Ht 172.7 cm; Wt 97.5 kg
[~2020-07-07 19:30] MED LIST changes: -LISI1TAB19 PO; +LISI1TAB39 PO
[2020-07-07 19:31] VITALS: BP 146/74
--- NOTE | 2020-07-07 19:47 | NUR ---
THIS IS A 55 YO MALE BIB [facility] FROM HOME FOR BILATERAL LOWER LEG SWELLING (WORSE ON LEFT LEG) WORSENING OVER THE PAST WEEK. SEEN ABOUT A MONTH AGO FOR SAME, SENT HOME WITH [employer], STATES "IT STARTED GETTING BETTER THEN A NWEEK AGO IT WAS GETTING WORSE". PATIENT RAN OUT OF [place] ABOUT 2 WEEKS AGO. NO RELIEF AT HOME WITH ICE/ELEVATION. BGL IN FIELD 101. CSM INTACT IN BILATERAL LOWER EXTREMITIES. TENDER TO PALPATION ON LEFT LEG. ALL MONITORING IN PLACE, NSR ON PATCH PRESS OPERATOR. VSS, NADN AT THIS TIME. CALL LIGHT IN REACH.
--- NOTE | 2020-07-07 19:49 | NUR ---
ERP IN ROOM FOR EVAL
--- NOTE | 2020-07-07 20:00 | NUR ---
US TECH TO ROOM
--- NOTE | 2020-07-07 20:25 | NUR ---
BREAK RN. PT BACK TO ROOM, LAB AT BEDSIDE FOR LAB DRAW.
[2020-07-07 20:46] LABS: BASOPHILS # (AUTO) 0.03 x10^3/uL (0-0.1); BASOPHILS % (AUTO) 0 % (0-1); EOSINOPHILS # (AUTO) 0.21 x10^3/uL (0-0.4); EOSINOPHILS % (AUTO) 3 % (1-7); LYMPHOCYTES % (AUTO) 26 % (22-44); MD NO; MEAN CORPUSCULAR HEMOGLOBIN 31.4 pg (27.5-34.5); MEAN CORPUSCULAR HGB CONC 32.7 g/dL (33.2-36.2); MEAN PLATELET VOLUME 7.9 fL (7.4-10.4); MONOCYTES % (AUTO) 12 % (2-9); NEUTROPHILS # (AUTO) 4.69 x10^3/uL (1.8-6.8); NEUTROPHILS % (AUTO) 60 % (42-75); PLATELET COUNT 198 x10^3/uL (130-400); RED BLOOD COUNT 5.06 x10^6/uL (4.38-5.82)
[2020-07-07 20:53] LABS: ANION GAP 5 mmol/L (5-15); CALCIUM 9.2 mg/dL (8.5-10.1); CHLORIDE 111 mmol/L (98-107); CREATININE 0.97 mg/dL (0.7-1.3)
--- NOTE | 2020-07-07 21:44 | NUR ---
Patient given discharge instructions and they have confirmed that they understand the instructions. Patient ambulatory with steady gait with own cane
== END 2020-07-07 21:45 | disposition home or self-care (01) ==
LOC: ED 20:11
DX: R60.0 Localized edema (principal); R94.31 Abnormal electrocardiogram [ECG] [EKG]; I10 Essential (primary) hypertension; E11.9 Type 2 diabetes mellitus without complications; K21.9 Gastro-esophageal reflux disease without esophagitis; J44.9 Chronic obstructive pulmonary disease, unspecified; Z90.89 Acquired absence of other organs; Z90.49 Acquired absence of other specified parts of digestive tract; Z87.891 Personal history of nicotine dependence
CPT/HCPCS: 36415; 80048; 85025; 93005; 99285

== ENCOUNTER 2020-07-28 14:07 | Emergency (ER) | payer MEDICARE, MEDICAID ==
[~2020-07-28] VITALS: Ht 172.7 cm; Wt 91.0 kg
[2020-07-28 14:22] VITALS: BP 132/88
--- NOTE | 2020-07-28 14:41 | NUR ---
PT CAME IN CO OF LEFT LEG SWELLING AND PAIN. SAYS IT STARTED LAST NIGHT AT ABOUT 0200. SKIN IS PINK AND DRY. NO EVIDENCE OF DRAINING OR OPEN LESIONS. LEG DOES HOWEVER APPEAR TO BE A LITLE SWOLLEN. PT DENIES TRAUMA. PT RESTING IN [place]. CONNECTED TO MONITORING EQUIPMENT.
== END 2020-07-28 16:51 | disposition home or self-care (01) ==
LOC: ED 16:03
DX: M79.652 Pain in left thigh (principal); I10 Essential (primary) hypertension; E11.9 Type 2 diabetes mellitus without complications; J44.9 Chronic obstructive pulmonary disease, unspecified; Z90.89 Acquired absence of other organs; Z90.49 Acquired absence of other specified parts of digestive tract; Z87.891 Personal history of nicotine dependence
CPT/HCPCS: 99284

== ENCOUNTER 2020-08-08 19:55 | Emergency (ER) | payer MEDICARE, MEDICAID ==
[~2020-08-08] VITALS: Ht 172.7 cm; Wt 101.7 kg
[2020-08-08] MEDS ORDERED: ONDANSETRON ODT 4 MG PO ONE (21:00)
[2020-08-08] MEDS ORDERED: metroNIDAZOLE 500 MG TABLET PO ONE (21:00)
[2020-08-08] MEDS ORDERED: HYDROcodone/APAP 5/325 TABLET PO ONE (21:00)
[2020-08-08] MEDS ORDERED: CIPROFLOXACIN 500 MG TABLET PO ONE (21:00)
[2020-08-08] MEDS ORDERED: metroNIDAZOLE 500 MG TABLET ONE (21:18)
[2020-08-08] MEDS ORDERED: ONDANSETRON ODT 4 MG ONE (21:18)
[2020-08-08] MEDS ORDERED: CIPROFLOXACIN 500 MG TABLET ONE (21:18)
[2020-08-08] MEDS ORDERED: HYDROcodone/APAP 5/325 TABLET ONE (21:19)
[2020-08-08 21:27] LABS: BASOPHILS % (AUTO) 1 % (0-1); EOSINOPHILS % (AUTO) 2 % (1-7); LYMPHOCYTES % (AUTO) 25 % (22-44); MEAN CORPUSCULAR HEMOGLOBIN 30.9 pg (27.5-34.5); MEAN CORPUSCULAR HGB CONC 32.9 g/dL (33.2-36.2); MEAN PLATELET VOLUME 8.1 fL (7.4-10.4); MONOCYTES % (AUTO) 12 % (2-9); NEUTROPHILS % (AUTO) 61 % (42-75); PLATELET COUNT 191 x10^3/uL (130-400); RED BLOOD COUNT 4.83 x10^6/uL (4.38-5.82); RED CELL DISTRIBUTION WIDTH 13.8 % (9.4-14.8)
[2020-08-08 21:28] LABS: MD NO
[2020-08-08 21:32] LABS: ALANINE AMINOTRANSFERASE 45 U/L (12-78); ALBUMIN 3.4 g/dL (3.4-5.0); ANION GAP 3 mmol/L (5-15); CALCIUM 8.3 mg/dL (8.5-10.1); CHLORIDE 107 mmol/L (98-107); CREATININE 1.08 mg/dL (0.7-1.3)
[2020-08-08 21:35] LABS: ALKALINE PHOSPHATASE 80 U/L (45-117); BILIRUBIN,TOTAL 0.2 mg/dL (0.2-1.0); TOTAL PROTEIN 6.9 g/dL (6.4-8.2)
[2020-08-08 22:10] VITALS: BP 134/63
== END 2020-08-08 22:12 ==
LOC: ED 20:37
DX: K57.92 Diverticulitis of intestine, part unspecified, without perforation or abscess without bleeding (principal); R19.7 Diarrhea, unspecified; R10.32 Left lower quadrant pain; R11.0 Nausea; I10 Essential (primary) hypertension; K21.9 Gastro-esophageal reflux disease without esophagitis; G43.909 Migraine, unspecified, not intractable, without status migrainosus; Z90.89 Acquired absence of other organs; Z90.49 Acquired absence of other specified parts of digestive tract
CPT/HCPCS: 36415; 80053; 83690; 85025; 99284; Q0162

== ENCOUNTER 2020-08-29 13:19 | Emergency (ER) | payer MEDICARE, MEDICAID ==
[~2020-08-29] VITALS: Ht 177.8 cm; Wt 99.4 kg
[2020-08-29 13:43] VITALS: BP 131/83
[2020-08-29 14:51] LABS: BASOPHILS % (AUTO) 1 % (0-1); EOSINOPHILS % (AUTO) 2 % (1-7); LYMPHOCYTES % (AUTO) 23 % (22-44); MEAN PLATELET VOLUME 8.3 fL (7.4-10.4); MONOCYTES % (AUTO) 10 % (2-9); NEUTROPHILS % (AUTO) 65 % (42-75); PLATELET COUNT 193 x10^3/uL (130-400); RED BLOOD COUNT 5.27 x10^6/uL (4.38-5.82); RED CELL DISTRIBUTION WIDTH 14.3 % (9.4-14.8)
[2020-08-29 14:59] LABS: MD NO
[2020-08-29 15:03] LABS: ALBUMIN 3.7 g/dL (3.4-5.0); CALCIUM 9.1 mg/dL (8.5-10.1)
[2020-08-29 15:07] LABS: ALANINE AMINOTRANSFERASE 45 U/L (12-78); ALKALINE PHOSPHATASE 99 U/L (45-117); BILIRUBIN,TOTAL 0.4 mg/dL (0.2-1.0); CREATININE 0.98 mg/dL (0.7-1.3); TOTAL PROTEIN 7.8 g/dL (6.4-8.2)
[2020-08-29 15:12] LABS: ANION GAP 2 mmol/L (5-15); CHLORIDE 106 mmol/L (98-107)
== END 2020-08-29 16:16 | disposition left against medical advice (07) ==
LOC: ED 13:55
DX: R10.84 Generalized abdominal pain (principal); R19.7 Diarrhea, unspecified; R10.9 Unspecified abdominal pain
CPT/HCPCS: 36415; 80053; 85025; 99283

== ENCOUNTER 2020-09-27 10:40 | Emergency (ER) | payer MEDICARE, MEDICAID ==
[~2020-09-27] VITALS: Ht 172.7 cm; Wt 100.0 kg
[2020-09-27 10:46] VITALS: BP 130/89
--- NOTE | 2020-09-27 11:10 | NUR ---
MAIDA PROVIDED TO PT. PT TO XR VIA [employer].
[2020-09-27] MEDS ORDERED: IBUPROFEN 600 MG TABLET ONE (11:29)
[2020-09-27] MEDS ORDERED: IBUPROFEN 600 MG TABLET PO ONE (11:30)
--- NOTE | 2020-09-27 11:30 | NUR ---
PT MEDICATED FOR PAIN AND ICE PACK PROVIDED TO L WRIST.
--- NOTE | 2020-09-27 11:54 | NUR ---
R WRIST SPLINT APPLIED BY CHIEF WELLNESS OFFICER, [facility] INTACT.
--- NOTE | 2020-09-27 12:02 | NUR ---
D/C INSTRUCTIONS, MEDS & F/U APPT RV'WD WITH PT, HE VERBALIZES UNDERSTANDING. PT AMBULATED OUT OF ED WITH OWN CANE WITHOUT DIFFICULTY, STATES A FRIEND WILL PICK HIM UP.
== END 2020-09-27 12:14 | disposition home or self-care (01) ==
LOC: ED 12:06
DX: S63.501A Unspecified sprain of right wrist, initial encounter (principal); S63.641A Sprain of metacarpophalangeal joint of right thumb, initial encounter; I10 Essential (primary) hypertension; E11.9 Type 2 diabetes mellitus without complications; J44.9 Chronic obstructive pulmonary disease, unspecified; K21.9 Gastro-esophageal reflux disease without esophagitis; Z90.89 Acquired absence of other organs; Z90.49 Acquired absence of other specified parts of digestive tract; Z87.891 Personal history of nicotine dependence; W01.0XXA Fall on same level from slipping, tripping and stumbling without subsequent striking against object, initial encounter; Y93.89 Activity, other specified; Y92.098 Other place in other non-institutional residence as the place of occurrence of the external cause; Y99.8 Other external cause status
CPT/HCPCS: 29125; 99284

== ENCOUNTER 2020-10-05 15:55 | Emergency (ER) | payer MEDICARE, MEDICAID ==
[~2020-10-05] VITALS: Ht 172.7 cm; Wt 100.0 kg
[2020-10-05] MEDS ORDERED: ONDANSETRON ODT 4 MG ONE (16:23)
[2020-10-05] MEDS ORDERED: ONDANSETRON ODT 4 MG PO ONE (16:30)
--- NOTE | 2020-10-05 17:20 | NUR ---
COVID SWAB DONE AND SENT. DC HOME WITH INSTRUCT, STABLE VS, PT VERBALIZES UNDERSTANDING OF ALL INSTRUCT AND FU. TO RETURN TO ER IF WORSE OR CONCERNS. NO VOMITING WHILE IN ER..
[2020-10-05 17:21] VITALS: BP 135/88
== END 2020-10-05 17:23 | disposition home or self-care (01) ==
LOC: ED 17:05
DX: U07.1 COVID-19 (principal); R11.2 Nausea with vomiting, unspecified; J00 Acute nasopharyngitis [common cold]; R05 Cough; R09.81 Nasal congestion
CPT/HCPCS: 71045; 87635; 99284; Q0162

== ENCOUNTER 2021-01-02 11:30 | Emergency (ER) | payer MEDICARE, MEDICAID ==
[~2021-01-02] VITALS: Ht 172.7 cm; Wt 99.8 kg
[~2021-01-02 11:30] MED LIST changes: +HYDR-1067 PO; -HYDR-3240 PO; -LISI40TA PO; +LISI40TA9 PO; -OXYC5TAB3 PO; +OXYC5TAB98 PO
[2021-01-02 12:01] VITALS: BP 144/84
--- NOTE | 2021-01-02 13:24 | NUR ---
HOMOEOPATH: PT TO ROOM FROM LOBBY, VIA W/C
--- NOTE | 2021-01-02 13:45 | NUR ---
angella rn: assumed care from lobby. patient waiting for recheck by ed md
--- NOTE | 2021-01-02 15:34 | NUR ---
REC'VD DISCHARGE INSTRUCTIONS AND EDUCATION. PT HAD NO FURTHER QUESTIONS. PT AMBULATED WITH CANE TO DC AREA, STEADY GAIT.
== END 2021-01-02 15:45 | disposition home or self-care (01) ==
LOC: ED 15:15
DX: S93.491A Sprain of other ligament of right ankle, initial encounter (principal); L03.031 Cellulitis of right toe; W01.0XXA Fall on same level from slipping, tripping and stumbling without subsequent striking against object, initial encounter; Y93.89 Activity, other specified; Y92.89 Other specified places as the place of occurrence of the external cause; Y99.8 Other external cause status
CPT/HCPCS: 99283

== ENCOUNTER 2021-02-10 10:02 | Emergency (ER) | payer MEDICARE, MEDICAID ==
[~2021-02-10] VITALS: Ht 172.7 cm; Wt 99.2 kg
[~2021-02-10 10:02] MED LIST changes: -HYDR-1067 PO; +HYDR-2214 PO
--- NOTE | 2021-02-10 10:20 | NUR ---
PT AMBULATORY FROM WHEELCHAIR TO GURNEY, PT CHANGED INTO GOWN. MONITORS IN PLACE. PLACED ON 2L N.C.. NO NEEDS AT THIS TIME. CALL LIGHT WITHIN REACH
[2021-02-10] MEDS ORDERED: SODIUM CHLORIDE FLUSH 10ML SYR IVF ONE (10:30)
--- NOTE | 2021-02-10 10:43 | NUR ---
PT TO XRAY
[2021-02-10 10:50] LABS: BASOPHILS % (AUTO) 1 % (0-1); EOSINOPHILS % (AUTO) 1 % (1-7); LYMPHOCYTES % (AUTO) 21 % (22-44); MEAN CORPUSCULAR HEMOGLOBIN 32.4 pg (27.5-34.5); MEAN CORPUSCULAR HGB CONC 34.1 g/dL (33.2-36.2); MONOCYTES % (AUTO) 10 % (2-9); NEUTROPHILS % (AUTO) 67 % (42-75); PLATELET COUNT 183 x10^3/uL (130-400); RED BLOOD COUNT 5.02 x10^6/uL (4.38-5.82); RED CELL DISTRIBUTION WIDTH 14.2 % (9.4-14.8)
[2021-02-10 10:58] LABS: MD NO
[2021-02-10 11:01] LABS: ALANINE AMINOTRANSFERASE 47 U/L (12-78); ALBUMIN 3.7 g/dL (3.4-5.0); ANION GAP 4 mmol/L (5-15); CALCIUM 8.9 mg/dL (8.5-10.1); CHLORIDE 107 mmol/L (98-107); CREATININE 1.03 mg/dL (0.7-1.3)
[2021-02-10 11:04] LABS: ALKALINE PHOSPHATASE 87 U/L (45-117); BILIRUBIN,TOTAL 0.8 mg/dL (0.2-1.0); TOTAL PROTEIN 8.2 g/dL (6.4-8.2)
[2021-02-10 11:44] VITALS: BP 123/60
--- NOTE | 2021-02-10 11:45 | NUR ---
PT SITTING ON GURNEY, WATCHING TV CALMLY. NADN/VSS. CALL LIGHT WITHIN REACH. NO NEEDS AT THIS TIME
[2021-02-10 12:03] LABS: MICROSCOPIC AUTO
--- NOTE | 2021-02-10 12:16 | NUR ---
Patient given discharge instructions and rx, they have confirmed that they understand the instructions. Patient ambulatory with steady gait.
== END 2021-02-10 12:23 | disposition home or self-care (01) ==
LOC: ED 10:56
DX: N30.01 Acute cystitis with hematuria (principal); R10.32 Left lower quadrant pain; R11.2 Nausea with vomiting, unspecified; M54.5 Low back pain; R19.7 Diarrhea, unspecified; E11.9 Type 2 diabetes mellitus without complications; J44.9 Chronic obstructive pulmonary disease, unspecified; Z90.49 Acquired absence of other specified parts of digestive tract
CPT/HCPCS: 36415; 74021; 80053; 81001; 83690; 85025; 87086; 99284

== ENCOUNTER 2021-03-13 08:48 | Emergency (ER) | payer MEDICARE, MEDICAID ==
[~2021-03-13] VITALS: Ht 172.7 cm; Wt 101.0 kg
--- NOTE | 2021-03-13 09:26 | NUR ---
PT AMBULATORY TO ROOM 16 W/ C/P LEFT UPPER AND LOWER ABD PAIN STARTED THIS AM AT 0430. STATES HE HAS HAD AN APPENDECTOMY AND CHOLECYSTECTOMY. PT ALSO STATES SOME CHEST TIGHTNESS RADIATING TO NECK. HX PE AND HEART MURMUR 15 YRS AGO. PT DENIES N/V. STATES DIARRHEA OFF AND ON. PT RESTING ON GURNEY. NADN. MONITORS APPLIED. VSS. WARM BLANKET PROVIDED.
--- NOTE | 2021-03-13 09:28 | NUR ---
DEMETRIO NICHOLS AT BEDSIDE FOR EVAL.
[2021-03-13 09:32] LABS: BASOPHILS % (AUTO) 1 % (0-1); EOSINOPHILS % (AUTO) 2 % (1-7); LYMPHOCYTES % (AUTO) 21 % (22-44); MEAN CORPUSCULAR HEMOGLOBIN 32.2 pg (27.5-34.5); MEAN CORPUSCULAR HGB CONC 34.2 g/dL (33.2-36.2); MONOCYTES % (AUTO) 11 % (2-9); NEUTROPHILS % (AUTO) 66 % (42-75); PLATELET COUNT 202 x10^3/uL (130-400); RED BLOOD COUNT 5.08 x10^6/uL (4.38-5.82)
[2021-03-13 09:43] LABS: MD NO
[2021-03-13 09:48] LABS: ALANINE AMINOTRANSFERASE 62 U/L (12-78); ALBUMIN 3.8 g/dL (3.4-5.0); ANION GAP 3 mmol/L (5-15); CALCIUM 9.4 mg/dL (8.5-10.1); CHLORIDE 106 mmol/L (98-107); CREATININE 0.96 mg/dL (0.7-1.3)
[2021-03-13 09:51] LABS: MICROSCOPIC AUTO
[2021-03-13 09:53] LABS: ALKALINE PHOSPHATASE 82 U/L (45-117); BILIRUBIN,TOTAL 0.9 mg/dL (0.2-1.0); TOTAL PROTEIN 8.5 g/dL (6.4-8.2)
[2021-03-13 11:06] VITALS: BP 137/85
== END 2021-03-13 11:08 | disposition home or self-care (01) ==
LOC: ED 08:53
DX: R10.12 Left upper quadrant pain (principal); R19.7 Diarrhea, unspecified; J44.9 Chronic obstructive pulmonary disease, unspecified; E11.9 Type 2 diabetes mellitus without complications; K21.9 Gastro-esophageal reflux disease without esophagitis; I11.0 Hypertensive heart disease with heart failure; G43.909 Migraine, unspecified, not intractable, without status migrainosus; Z90.89 Acquired absence of other organs; Z90.49 Acquired absence of other specified parts of digestive tract; Z87.891 Personal history of nicotine dependence
CPT/HCPCS: 36415; 80053; 80320; 81001; 83690; 85025; 87086; 93005; 99284; G0480

== ENCOUNTER 2021-05-12 10:13 | Emergency (ER) | payer MEDICARE, MEDICAID ==
[~2021-05-12] VITALS: Ht 172.7 cm; Wt 100.0 kg
[2021-05-12] MEDS ORDERED: DICYCLOMINE 10 MG/ML, 2ML IM ONE (10:30)
--- NOTE | 2021-05-12 10:30 | NUR ---
PT BIBA. PER EMS PT HAS LLQ ABD PAIN. HX PANCREATITIS. PT RESTING IN [facility], MONITORING IN PLACE, NADN AT THIS TIME, CALL LIGHT WITHIN REACH, WCTM.
[2021-05-12] MEDS ORDERED: DICYCLOMINE 10 MG/ML, 2ML ONE (10:38)
[2021-05-12 10:53] LABS: BASOPHILS % (AUTO) 1 % (0-1); EOSINOPHILS % (AUTO) 2 % (1-7); LYMPHOCYTES % (AUTO) 26 % (22-44); MEAN CORPUSCULAR HEMOGLOBIN 32.3 pg (27.5-34.5); MEAN PLATELET VOLUME 7.8 fL (7.4-10.4); MONOCYTES % (AUTO) 14 % (2-9); NEUTROPHILS % (AUTO) 58 % (42-75); PLATELET COUNT 230 x10^3/uL (130-400); RED BLOOD COUNT 4.81 x10^6/uL (4.38-5.82)
[2021-05-12 11:03] LABS: ALANINE AMINOTRANSFERASE 55 U/L (12-78); ALBUMIN 3.2 g/dL (3.4-5.0); ANION GAP 3 mmol/L (5-15); CHLORIDE 106 mmol/L (98-107); CREATININE 0.95 mg/dL (0.7-1.3)
[2021-05-12 11:06] LABS: ALKALINE PHOSPHATASE 71 U/L (45-117); BILIRUBIN,TOTAL 0.7 mg/dL (0.2-1.0); TOTAL PROTEIN 7.6 g/dL (6.4-8.2)
[2021-05-12 11:14] LABS: MICROSCOPIC INDICATED
[2021-05-12 11:35] LABS: TROPONIN I < 0.015 ng/mL (0.000-0.045)
[2021-05-12 12:08] VITALS: BP 121/78
== END 2021-05-12 12:14 | disposition home or self-care (01) ==
LOC: ED 10:24
DX: N30.00 Acute cystitis without hematuria (principal); E11.65 Type 2 diabetes mellitus with hyperglycemia; R10.12 Left upper quadrant pain; R10.13 Epigastric pain; R19.7 Diarrhea, unspecified; I45.19 Other right bundle-branch block; I10 Essential (primary) hypertension; F17.200 Nicotine dependence, unspecified, uncomplicated
CPT/HCPCS: 36415; 74022; 80053; 81001; 83690; 84484; 85025; 87086; 96372; 99284; J0500

== ENCOUNTER 2021-07-18 11:58 | Emergency (ER) | payer MEDICARE, MEDICAID ==
[~2021-07-18 11:58] MED LIST changes: -LISI2.5T PO; +LISI2.5T12 PO
== END 2021-07-18 13:12 | disposition left against medical advice (07) ==
LOC: ED 13:00
DX: M25.551 Pain in right hip (principal); Z53.21 Procedure and treatment not carried out due to patient leaving prior to being seen by health care provider